=== PATIENT | female | born 1945 | race Caucasian/White ===

== ENCOUNTER 2022-06-12 16:18 | Outpatient (CLI) | payer MEDICARE, BC, SELFPAY ==
[2022-06-12 17:30] LABS: Albumin* 4.4 g/dL (3.3-5.0); Chloride* 94 mmol/L (96-114); Sodium* 130 mmol/L (135-149)
[2022-06-12 17:31] LABS: Potassium* 4.2 mmol/L (3.6-5.1)
[2022-06-12 17:33] LABS: Alanine Aminotransferase* 29 U/L (4-35); Alkaline Phosphatase* 90 U/L (40-150); Aspartate Amino Transferase* 38 U/L (12-35); Bilirubin Total* 0.4 mg/dL (0.1-1.5); Blood Urea Nitrogen* 21 mg/dL (7-30); Carbon Dioxide* 30 mmol/L (20-32); Creatinine* 0.6 mg/dL (0.5-1.5); Estimated Glomerular Filt Rate 92 ml/min; Glucose* 82 mg/dL (60-115); Total Protein* 6.9 g/dL (6.0-8.3)
[2022-06-12 17:34] LABS: Calcium* 9.2 mg/dL (8.4-10.6)
[2022-06-12 18:02] LABS: Thyroid Stimulating Hormone* 0.522 uIU/mL (0.270-4.20)
== END 2022-06-12 16:19 | disposition home or self-care (01) ==
PROVIDERS: PCP Internal Medicine; Visit Provider Family Medicine
DX: Z00.00 Encounter for general adult medical examination without abnormal findings (principal); E03.9 Hypothyroidism, unspecified; R53.83 Other fatigue
CPT/HCPCS: 80053; 83735; 84443

== ENCOUNTER 2023-06-18 14:24 | Outpatient (CLI) | payer MEDICARE, BC, SELFPAY | END 2023-06-18 14:25 | disposition home or self-care (01) | PROVIDERS: PCP Family Medicine; Visit Provider Family Medicine | DX: E03.9 Hypothyroidism, unspecified (principal); G24.9 Dystonia, unspecified; I63.9 Cerebral infarction, unspecified; Z80.7 Family history of other malignant neoplasms of lymphoid, hematopoietic and related tissues | CPT/HCPCS: 80053; 80061; 84165; 84443 ==

== ENCOUNTER 2023-06-24 13:44 | Emergency (ER) | payer MEDICARE, BC, SELFPAY ==
[2023-06-24 13:53] VITALS: BP 111/73; PULSE 83; RESP 18; TEMP 36.6; O2SAT 95
--- NOTE | 2023-06-24 14:00 | CRLHL7_ITS ---
For Patients: As a result of the Cures Act, medical imaging exams and procedure reports are released immediately into your electronic medical record. You may view this report before your referring provider. If you have questions, please contact your health care provider. INDICATION: Trauma. The patient fell 5 days ago. Pain. Paralysis secondary to a stroke. TECHNIQUE: Two views of the left elbow. FINDINGS: Skeletal demineralization. No fracture, dislocation, erosion, or effusion. IMPRESSION: Negative left elbow. Dictated by Norman Nieves MD @ 06/24/2023 3:19:07 PM (Electronically Signed)
--- NOTE | 2023-06-24 14:00 | CRLHL7_ITS ---
For Patients: As a result of the Cures Act, medical imaging exams and procedure reports are released immediately into your electronic medical record. You may view this report before your referring provider. If you have questions, please contact your health care provider. INDICATION: Trauma. The patient fell 5 days ago. Pain. Paralysis secondary to a stroke. TECHNIQUE: Three views of the left shoulder. FINDINGS: Mild degenerative narrowing of the glenohumeral joint. No acute fracture or dislocation. No erosion. The visualized included left-sided ribs are unremarkable. IMPRESSION: Negative left shoulder. Dictated by Norman Nieves MD @ 06/24/2023 3:20:32 PM (Electronically Signed)
--- NOTE | 2023-06-24 14:00 | CRLHL7_ITS ---
For Patients: As a result of the Cures Act, medical imaging exams and procedure reports are released immediately into your electronic medical record. You may view this report before your referring provider. If you have questions, please contact your health care provider. INDICATION: Trauma. The patient fell 5 days ago. Left arm pain. Paralysis secondary to a stroke. TECHNIQUE: Two views of the left forearm. FINDINGS: No acute fracture or dislocation. Mild skeletal demineralization. Degenerative narrowing of the radiocarpal joint space. IMPRESSION: Negative left forearm. Dictated by Norman Nieves MD @ 06/24/2023 3:15:49 PM (Electronically Signed)
--- NOTE | 2023-06-24 14:00 | CRLHL7_ITS ---
For Patients: As a result of the Cures Act, medical imaging exams and procedure reports are released immediately into your electronic medical record. You may view this report before your referring provider. If you have questions, please contact your health care provider. INDICATION: Trauma. The patient fell 5 days ago. Pain. Paralysis due to a stroke. TECHNIQUE: Three views of the left wrist. FINDINGS: Skeletal demineralization. Degenerative narrowing of the radiocarpal joint space. No acute fracture or dislocation. IMPRESSION: No fracture or acute malalignment of the left wrist. Dictated by Norman Nieves MD @ 06/24/2023 3:18:14 PM (Electronically Signed)
--- NOTE | 2023-06-24 14:00 | CRLHL7_ITS ---
For Patients: As a result of the Cures Act, medical imaging exams and procedure reports are released immediately into your electronic medical record. You may view this report before your referring provider. If you have questions, please contact your health care provider. INDICATION : Trauma. The patient fell 5 days ago. Left arm pain. Paralysis secondary to a stroke. TECHNIQUE: Two views of the left humerus. FINDINGS: Skeletal demineralization. No fracture or dislocation. Degenerative narrowing of the glenohumeral joint. IMPRESSION: Negative left humerus. Dictated by Norman Nieves MD @ 06/24/2023 3:17:04 PM (Electronically Signed)
--- NOTE | 2023-06-24 14:27 | ED.GENADULT ---
HPI - General Adult General Chief complaint: Extremity Pain/Injury, Upper Stated complaint: L forearm and hand pain Time Seen by Provider: 06/24/23 13:55 Source: patient and family Mode of arrival: ambulatory Limitations: no limitations History of Present Illness HPI narrative: Female presenting today with concerns about injury to the left upper extremity secondary to a fall she sustained 5 days ago. Patient does have a history of stroke and left-sided upper extremity paralysis. She states that she noticed bruising only a couple days after the fall. She did not hit her head or lose consciousness. She really has very minimal feeling of the upper extremity. Bruising has become worse, swelling has improved. Patient is here with family would like an evaluation. Related Data Home Medications Medication Instructions Recorded Confirmed calcium carb-vit [id number] 1 tab PO QDAY 06/17/23 06/17/23 333 mg-200 unit-133 mg-5 mg tablet hydroxychloroquine 200 mg tablet 200 mg PO BID 06/17/23 06/18/23 multivitamin 1 tab PO QDAY 06/17/23 06/17/23 omega-3 fatty acids 1,000 mg 1,000 mg PO QDAY 06/17/23 06/17/23 capsule vitamin B complex 1 tab PO QDAY 06/17/23 06/17/23 valacyclovir 500 mg tablet 500 mg PO QDAY 06/18/23 06/18/23 (Valtrex) Previous Rx's Medication Instructions Recorded baclofen 10 mg tablet 10 mg PO TID PRN spasm #90 tabs 06/02/23 clonazepam 1 mg tablet 1 mg PO TID #90 tabs 06/18/23 conjugated estrogens 0.625 mg 0.625 mg PO QDAY #90 tabs 06/18/23 tablet (Premarin) duloxetine 20 mg capsule,delayed 20 mg PO QDAY #30 caps 06/18/23 release (Cymbalta) olopatadine 0.2 % eye drops 1 drp ophthalmic (eye) QDAY #2.5 mL 06/18/23 (Pataday Once Daily Relief) spironolactone 25 mg tablet 25 mg PO QDAY #90 tabs 06/18/23 Synthroid 75 mcg tablet 75 mcg PO QDAY #90 tabs 06/21/23 (levothyroxine) Allergies Allergy/AdvReac Type Severity Reaction Status Date / Time carbamazepine [From Tegretol] Allergy Severe Rash Verified 06/18/23 13:27 phenobarbital Allergy Severe Rash Verified 06/18/23 13:27 phenytoin [From Dilantin] Allergy Severe Rash Verified 06/18/23 13:27 duloxetine [From Cymbalta] Allergy Intermediate swelling Verified 06/18/23 13:27 Review of Systems Status of ROS: Reports: 10 or more systems reviewed and unremarkable except as noted in History and below [facility] Medical History (Updated 06/24/23 @ 15:38 by Tanisha Garzon MD) 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.1 - Herpesviral vesicular dermatitis (ICD-10) Generalized anxiety disorder ?F41.1 - Generalized anxiety disorder (ICD-10) Osteopenia ?M85.80 - Other specified disorders of bone density and structure, unspecified site (ICD-10) Adenomatous colon polyp ?D12.6 - Benign neoplasm of colon, unspecified (ICD-10) 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 (ICD-10) Hypothyroidism ?E03.9 - Hypothyroidism, unspecified (ICD-10) History of cerebral hemorrhage (1991) ?Z86.79 - Personal history of other diseases of the circulatory system (ICD-10) Dystonia ?G24.9 - Dystonia, unspecified (ICD-10) Surgical History History of total hysterectomy with bilateral salpingo-oophorectomy (BSO) ?Z90.710 - Acquired absence of both cervix and uterus (ICD-10) ?Z90.722 - Acquired absence of ovaries, bilateral (ICD-10) ?Z90.79 - Acquired absence of other genital organ(s) (ICD-10) History of cataract surgery ?Z98.49 - Cataract extraction status, unspecified eye (ICD-10) History of appendectomy ?Z90.49 - Acquired absence of other specified parts of digestive tract (ICD-10) Family History (Updated 06/16/23 @ 10:35 by Cassandra Escalera) Father Colon cancer Social History (Updated 06/17/23 @ 11:00 by Ruth Amezcua ~ RMA, RMA) Narrative: , retired, nonsmoker What is your current living situation?: I presently have a place to live In the past 12 months, utilities in danger of being shut off: no In past 12 months, lack of transportation kept you from medical appts, meetings, work, or getting things needed for daily living: no In the past 12 mos, have been you worried that your food would run out before you had money to buy more?: never true In the past 12 mos, the food you bought just didn't last and you didn't have money to buy more?: never true Smoking Status: Never smoker How often do you have a drink containing alcohol: never AUDIT-C Alcohol total score: 0 Non-prescribed substance use: denies use How often does anyone, including family, friends and others, physically hurt you: never How often does anyone, including family, friends and others, insult or talk down to you: decline to answer How often does anyone, including family, friends and others, threaten you with harm: never How often does anyone, including family, friends and others, scream or curse at you: decline to answer Little interest or pleasure in doing things: several days Feeling down, depressed, or hopeless: several days Exam Narrative: Exam Narrative: Well-nourished well-developed patient in no acute distress. Alert and oriented x3. Answers questions appropriately. Mood and affect are appropriate. Thoughts are goal oriented and rational. No tangential or magical thinking noted. HEENT: Normocephalic atraumatic. Pupils are equally round reactive to light. Extraocular muscles are intact. Conjunctivae are moist without any icterus noted. Moist mucous membranes. No trauma noted and the inside of the mouth. Cardiovascular: Heart is regular rate and rhythm. Lungs: Clear to auscultation bilaterally. Extremities: Left upper extremity has circumferential dark purple bruising around the wrist and about half of the forearm. She has 2 abrasions of the forearm. She does not have any significant tenderness to palpation anywhere on the arm, but again she has no significant feeling. Her shoulder contour is not rounded when compared to the right. Patient cannot move that extremity at baseline. Hand is contracted. Normal radial pulse. Const: Vital Signs, click to edit/add: Vital Signs - 24 hr 06/24/23 13:53 Temperature 97.8 F Pulse Rate [Right Pulse Oximeter] 83 Respiratory Rate 18 Blood Pressure [Le ft Upper Arm] 111/73 Pulse Oximetry 95 Oxygen Delivery Me thod Room Air Course Vital Signs Vital signs: Initial Vital Signs Temperature 97.8 F 06/24/23 13:53 Temperature Source Temporal Artery Scan 06/24/23 13:53 Pulse Rate 83 06/24/23 13:53 Respiratory Rate 18 06/24/23 13:53 Blood Pressure 111/73 06/24/23 13:53 Blood Pressure Mean 85 06/24/23 13:53 Blood Pressure Position Sitting 06/24/23 13:53 Pulse Oximetry 95 06/24/23 13:53 Oxygen Delivery Method Room Air 06/24/23 13:53 Vital Signs Temperature 97.8 F 06/24/23 13:53 Pulse Rate 83 06/24/23 13:53 Respiratory Rate 18 06/24/23 13:53 Blood Pressure 111/73 06/24/23 13:53 Pulse Oximetry 95 06/24/23 13:53 Oxygen Delivery Method Room Air 06/24/23 13:53 Temperature 97.8 F 06/24/23 13:53 Pulse Rate 83 06/24/23 13:53 Respiratory Rate 18 06/24/23 13:53 Blood Pressure 111/73 06/24/23 13:53 Pulse Oximetry 95 06/24/23 13:53 Oxygen Delivery Method Room Air 06/24/23 13:53 Medical Decision Making MDM Narrative Medical decision making narrative: FALL WITH INJURY TO THE LEFT UPPER EXTREMITY. All imaging within normal limits. I discussed with the patient's daughter the lack contour of the left shoulder in the daughter tells me that her shoulder always looks like that and that she has had multiple injections in that shoulder and she was told that the injections could necrosis the fat around the shoulder. She believes that the lack around this of the shoulder is from that. At this time we discussed putting her in a sling which the patient would like to do. They had no other concerns regarding any other injuries. Patient discharged home to the care of her family. Imaging Data Humerus: Attestation: I have reviewed the pertinent imaging results. Radiologist's impression: INDICATION : Trauma. The patient fell 5 days ago. Left arm pain. Paralysis secondary to a stroke. TECHNIQUE: Two views of the left humerus. FINDINGS: Skeletal demineralization. No fracture or dislocation. Degenerative narrowing of the glenohumeral joint. IMPRESSION: Negative left humerus. shoulder: Attestation: I have reviewed the pertinent imaging results. Radiologist's impression: INDICATION: Trauma. The patient fell 5 days ago. Pain. Paralysis secondary to a stroke. TECHNIQUE: Three views of the left shoulder. FINDINGS: Mild degenerative narrowing of the glenohumeral joint. No acute fracture or dislocation. No erosion. The visualized included left-sided ribs are unremarkable. IMPRESSION: Negative left shoulder. Forearm: Attestation: I have reviewed the pertinent imaging results. Radiologist's impression: INDICATION: Trauma. The patient fell 5 days ago. Left arm pain. Paralysis secondary to a stroke. TECHNIQUE: Two views of the left forearm. FINDINGS: No acute fracture or dislocation. Mild skeletal demineralization. Degenerative narrowing of the radiocarpal joint space. IMPRESSION: Negative left forearm. Wrist: Attestation: I have reviewed the pertinent imaging results. Radiologist's impression: TECHNIQUE: Three views of the left wrist. FINDINGS: Skeletal demineralization. Degenerative narrowing of the radiocarpal joint space. No acute fracture or dislocation. IMPRESSION: No fracture or acute malalignment of the left wrist. Elbow: Attestation: I have reviewed the pertinent imaging results. Radiologist's impression: INDICATION: Trauma. The patient fell 5 days ago. Pain. Paralysis secondary to a stroke. TECHNIQUE: Two views of the left elbow. FINDINGS: Skeletal demineralization. No fracture, dislocation, erosion, or effusion. IMPRESSION: Negative left elbow. Discharge Plan Discharge Clinical Impression: Injury of left upper extremity, Fall Patient Disposition: Home, Self-Care Condition: Stable Additional Instructions: Wear sling when you are up walking around during the day, this will help with swelling. Follow-up with your primary care provider with any concerns. Prescriptions: No Action omega-3 fatty acids 1,000 mg capsule 1,000 mg PO QDAY multivitamin Tablet 1 tab PO QDAY hydroxychloroquine 200 mg tablet 200 mg PO BID calcium carb-D3-mag [id number] [phone] dn-votu-[id number]-mg tablet 1 tab PO QDAY Rx Instructions: administer with a meal vitamin B complex Tablet 1 tab PO QDAY valacyclovir [Valtrex] 500 mg tablet 500 mg PO QDAY olopatadine [Pataday Once Daily Relief] 0.2 % drops 1 drp ophthalmic (eye) QDAY Qty: 2.5 5RF clonazepam 1 mg tablet 1 mg PO TID Qty: 90 5RF spironolactone 25 mg tablet 25 mg PO QDAY Qty: 90 3RF Premarin 0.625 mg tablet 0.625 mg PO QDAY Qty: 90 3RF duloxetine [Cymbalta] 20 mg capsule,delayed release(DR/EC) 20 mg PO QDAY Qty: 30 2RF baclofen 10 mg tablet 10 mg PO TID PRN (Reason: spasm) Qty: 90 0RF levothyroxine [Synthroid] 75 mcg tablet 75 mcg PO QDAY Qty: 90 3RF Follow Up/Referrals: Modesto Elliott MD [Primary Care Provider] - Stand Alone Forms: [facility] Info Instructions
== END 2023-06-24 15:58 | disposition home or self-care (01) ==
PROVIDERS: Emergency Provider Family Medicine; PCP Family Medicine
DX: S40.022A Contusion of left upper arm, initial encounter (principal); W19.XXXA Unspecified fall, initial encounter
CPT/HCPCS: 73030; 73060; 73070; 73090; 73110; 99284

== ENCOUNTER 2024-06-22 12:23 | Outpatient (CLI) | payer MEDICARE, BC, SELFPAY | END 2024-06-22 12:24 | disposition home or self-care (01) | PROVIDERS: PCP Family Medicine; Visit Provider Family Medicine | DX: E03.9 Hypothyroidism, unspecified (principal); E78.5 Hyperlipidemia, unspecified; G24.9 Dystonia, unspecified; E61.1 Iron deficiency; Z80.7 Family history of other malignant neoplasms of lymphoid, hematopoietic and related tissues | CPT/HCPCS: 80048; 80061; 80076; 82728; 84165; 84443; 85025 ==

== ENCOUNTER 2025-06-14 18:34 | Emergency (ER) | payer MEDICARE, BC, SELFPAY ==
--- OUTSIDE RECORDS SUMMARY | 2025-04-27 04:45 | XMS_ITS | Encounter Summary ---
Author Organization [facility] Address [address] [place] [address] Care Team Providers Care Enterostomal Therapy Nurse Name Role Phone Elsewhere, Pcp Primary Care Provider Unavailabl e Reason for Referral * Outpatient (Routine) - Authorized Specialty Diagnoses / Procedures Referred By Jamie hanna Referred To Contact Diagnoses Secondary Osteoarthritis Knee Left Procedures US Lower Extremity Veins Left Colton Royal APRN, C.N.P., D.N.P. 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 Procedures COMPLEX PRIMARY LEFT TOTAL KNEE ARTHROPLASTY WITH HINGE CONSTRUCT, proceed as indicated. Referral ID Status Reason Start Date Expiration Date Visits Re quested Visits Authorized [id number] 1 1 Encounter Details Date Type Department Care Team (Latest Contact Info) Description 04/27/2025 5:45 AM CDT - 05/04/2025 1:11 PM CDT Hospital Encounter [facility] Ninth Floor [address] [place] [address] Eduardo Bahena M.D. [address] [place] [address] Decline Functional Status [R53.81] (Primary Dx); Dysphagia [R13.10]; Secondary Osteoarthritis Knee Left Discharge Disposition: Detention Facility Social History Tobacco Use Types Packs/Day Years Used Date Smoking Tobacco: Never Passive Smoke Exposure: Past Smokeless Tobacco: Never Alcohol Use Standard Drinks/Week Comments Never 0 (1 standard drink = 0.6 oz pur e alcohol) Humiliation, Afraid, Rape, and Kick questionnair e Answer Date Recorded Within the last year, have y ou been afraid of your partner or ex-partner? No 04/27/2025 Within the last year, have y ou been humiliated or emotionally abused in other ways by your partner or ex-partner? No Within the last year, have y ou been kicked, hit, slapped, or otherwise physically hurt by your partner or ex-partner? No 04/27/2025 Within the last year, have y ou been raped or forced to have any kind of sexual activity by your partner or ex-partner? No 04/27/2025 Hunger Vital Sign Answer Date Recorded Within the past 12 months, y ou worried that your food would run out before you got the money to buy more. Never true 04/27/20 25 Within the past 12 months, t he food you bought just didn't last and you didn't have money to get more. Never true 04/27/2025 PRAPARE - Transportation Answer Date Re corded In the past 12 months, has l ack of transportation kept you from medical appointments or from getting medications? No 04/03 In the past 12 months, has l ack of transportation kept you from meetings, work, or from getting things needed for daily living? No 04/27/2025 [facility] Utilities Answer Date Recorded In the past 12 months has [facility] electric, gas, oil, or water company threatened to shut off services in your home? No 04/27/2025 Housing Stability Answer Date Recorded What is your living situation today? I have a [address] [place] place to live 04/27/2025 Education Answer Date Recorded What is the highest level of school you have completed or the highest degree you have received? Associate degree: occupational, technical, or vocational program 03/16/2019 Comments No Sex and Gender Information Value Date Recorded Sex Assigned at Female 04/22/2021 5:18 PM CDT Legal Sex Female 4:49 AM ENVIRONMENTAL CONSULTANT Gender Identity Female 09/07/2022 7:24 PM ENVIRONMENTAL CONSULTANT Sexual Orientation Not on file documented as of this encounter Last Filed Vital Signs Vital Sign Reading Time Taken Comments Blood Pressure 104/47 05/04/2025 11:59 AM CDT Pulse 109 05/04/2025 11:59 AM CDT Temperature 36.5 C (97.7 F) 05/04/2025 11:59 AM CDT Respiratory Rate 16 05/04/2025 11:59 AM CDT Oxygen Saturation 90% 05/04/2025 11:59 AM CDT Inhaled Oxygen Concentration - - Weight 51 kg (112 lb 7 oz) 04/27/2025 6:46 AM CD T Height 154 cm (5' 0.63) 04/27/2025 6:46 AM CDT Body Mass Index 21.5 04/27/2025 6:46 AM CDT documented in this encounter Discharge Summaries * Colton Royal, ADRIANA, C.N.P., D.N.P. - 05/04/2025 11:22 AM CDT DISCHARGE SUMMARY BRIEF OVERVIEW Hospital: [facility] Discharge Provider: Eduardo Bahena M.D. Primary Team: T Orthopedic Surgery - Korey Primary Care Providers: Elsewhere, Pcp (General) No address on file Primary Care Provider Phone Number: None Primary Care Provider Fax Number: None Other Providers: Admission Date: 04/27/2025 Discharge Date: 05/04/2025 PRINCIPAL DIAGNOSIS Primary Osteoarthritis Knee Left SECONDARY DIAGNOSES Principal Problem: Primary Osteoarthritis Knee Left Active Problems: Spasticity Hemiplegia Spastic Nondominant Side Left (HCC) Abnormal Gait Non Orthopedic Resolved Problems: * No resolved hospital problems. * Surgery Information This Encounter Past Procedures (05/04/2024 to Today) Date Procedures Providers Loc / Dept 04/27/2025 COMPLEX PRIMARY LEFT TOTAL KNEE ARTHROPLASTY WITH HINGE CONSTRUCT Eduardo Bahena M.D.Zietz, Timothy J, MPAS, P.A.-C.MacInnis, Bailey R, M.D.Ray, Gabrielle S, M.D. RSDenisha FORDE OR DISCHARGE DISPOSITION Home-Health Care [facility] [6] ACTIVE ISSUES REQUIRING FOLLOW UP OUTPATIENT FOLLOW UP For appointment details refer to your Patient Appointment Guide. TEST RESULTS PENDING AT DISCHARGE Pending Labs None DETAILS OF HOSPITAL STAY REASON FOR ADMISSION Primary Osteoarthritis Knee Left HOSPITAL COURSE Surgery Information This Encounter Past Procedures (05/04/2024 to Today) Date Procedures Providers Loc / Dept 04/27/2025 COMPLEX PRIMARY LEFT TOTAL KNEE ARTHROPLASTY WITH HINGE CONSTRUCT Eduardo Bahena M.D.Zietz, Timothy J, MPAS, P.A.-C.MacInnis, Bailey R, M.D.Ray, Gabrielle S, M.D. RST ROEI OR Cristina Valenzuelae Daniellayarelis was taken to the operative room by Eduardo Bahena M.D. for the procedurelisted above. The intraoperative as well as the immediate postoperative course were uncomplicated. For further details of the surgery please see the operative note. The patient was transferred from the PACU to the general care floor for continued observation and monitoring. She progressed in the usual post-operative fashion without complications. The patient was treated with perioperative IV antibiotics. She was given liquids by mouth and eventually advanced as tolerated towards a more general diet. Her pain was well controlled with oral pain medications. Physical therapy / Occupational therapy was consulted for assistance with mobilization and gait training. She was mobilizing without difficulty and was compliant with any activity restrictions. Her incision remained intact with no concerns. Her bowel and bladder function were acceptable. She then met criteria for discharge and was later dismissed from the hospital. For any further details please see the [facility] orthopedic surgery progress note and any other co-managing teams dated 05/04/2025. CONSULTS ORDERED DURING THIS ADMISSION IP CONSULT TO CARE MANAGEMENT IP CONSULT TO CARE MANAGEMENT IP CONSULT TO CARE MANAGEMENT IP CONSULT TO CARE MANAGEMENT CONDITION AT DISCHARGE stable Discharge instructions were provided to the patient and caregiver(s). Total time spent in discharge services today: 20 minutes. documented in this encounter Medications at Time of Discharge acetaminophen (TylenoL) 500 mg tablet Take 2 tablets (1,000 mg total) by mouth every 6 (six) hours for 30 days. First line medication for pain. Okay to take on a scheduled basis every 6 hours in the days following surgery, then take on an as -needed basis as pain improves. Do not exceed 4,000 mg of acetaminophen from all sources in a day. 200 tablet 5 apixaban (Eliquis) 2.5 mg tablet Take 1 tablet (2.5 mg total) by mouth 2 (two) times a day. 60 tablet 5 ascorbic acid (VITAMIN C ORAL) Take 1 tablet by mouth daily. baclofen (LIORESAL) 10 mg tablet Take 1 tablet by mouth 2 (two) times a day as needed. Muscle relaxant as needed 4 calcium carb/D3/magnesium/z inc (CALCIUM CARB-D3-MAG RZW23-IMTC) [phone] zb-zupl-ao-mg tablet Take 2 tablets by mouth at bedtime. 2 cyanocobalamin, vitamin B-12, 5,000 mcg tablet, IR & ER, biphasic Take 1 tablet by mouth daily. docosahexanoic acid/epa (FISH OIL ORAL) Take 2 capsules by mouth daily. 8 estrogens, conjugated, (PREMARIN) 0.625 mg tablet Take 0.625 mg by mouth. 5 ferrous sulfate 134 mg (27 mg iron) tablet Take 134 mg by mouth. 5 levothyroxine (SYNTHROID) 75 mcg tablet Take 1 tablet by mouth daily. 5 MULTIVITAMIN WITH IRON ORAL Take 1 tablet by mouth daily. 9 oxyCODONE (Roxicodone) 5 mg immediate release tabletIndications:A cute Pain Exception Indication: Acute Pain Exception. 1 tab for pain 4-6/10, 2 tabs for pain 7-10/10 every four hours as needed for pain- second line 25 tablet 5 sennosides-docusate sodium (Senokot-S) 8.6-50 mg per tablet Take 1 tablet by mouth 2 (two) times a day. To prevent constipation in the postoperative timeframe and/or while using opioid pain medications. Decrease or discontinue using if you develop loose stools. 5 sesame oil with daphne geranium oil (50 mL) Administer 2 sprays into each nostril 2 (two) times a day. 50 mL 11 04/12/2025 11:34 AM CDT 4 tolterodine (DetroL) 2 mg tablet Take 1 tablet by mouth 2 (two) times a day. 5 TURMERIC ORAL Take 1 tablet by mouth daily. valACYclovir (VALTREX) 500 mg tablet Take 1 tablet (500 mg total) by mouth daily. 90 tablet 3 ondansetron ODT (Zofran-ODT) 4 mg disintegrating tablet Dissolve 1 tablet (4 mg total) in the mouth every 6 (six) hours as needed for nausea or vomiting for up to 30 days. 5 06/03/20 25 pantoprazole (Protonix) 40 mg EC tablet Take 1 tablet (40 mg total) by mouth daily before morning meal for 30 days. 5 06/03/20 25 tranexamic acid (Lysteda) 650 mg tablet Take 3 tablets (1,950 mg total) by mouth daily for 3 days. 9 tablet 5 05/08/20 25 documented as of this encounter Progress Notes * Melida Chris L.G.S.W. - 05/04/2025 11:10 AM CDT SUBJECTIVE Patient will discharge today to [facility] for short term rehab. Patient is coordinating with her daughter in regards ot transportation. Patient needs to be at facility by 1:00 pm OBJECTIVE Anticipated Needs Anticipated Needs Functional Status: Transportation use (drive car, use taxi/bus), Housekeeping, Mobility, Shopping Assistive Devices: None Anticipated Modifications to the Patient's Home: None Transportation Needs: Support from family Does the patient need discharge transport arranged?: No Ride and Caregiver Arranged: Yes Ride Caregiver Provider: Eleonora Coe Phone Number for Ride/Caregiver: [phone] Anticipated Discharge Destination: [facility]-Health Care [facility] Patient/family are understanding and accepting of the discharge plan as described below. ASSESSMENT / PLAN Assessment Those noted above appear to have insight into the patient's needs at this time and are planning appropriately for discharge needs. They report agreement with the below plan with no further questions at this time. Anticipated barriers: transportation Plan The patient is being prepared to discharge on 05/04/2025 at 12:30 if medically ready for transfer. Contact Social Work if time needs to be changed. Transportation will be provided by family. . Destination - Admitted Since 04/27/2025 Service Provider Services Address Phone Fax Patient Preferred [facility] Detention [address] [phone] Yes Contact: Transportation oxygen: No oxygen needed. NURSING: - Complete documentation in the Discharge Navigator including Nursing Report Info and Facility/NextLevel of Care Info - Contact facility to give report on morning of discharge. - Send After Visit Summary and required packet of dismissal information with patient, including advance directive. PRIMARY SERVICE: - Provider to Provider call is not required. - Provide written prescriptions for all narcotics. After Visit Summary to Include: - All discharge medications include dosage, times for administration, diagnosis, and stop date. - Ongoing care - wound care, infection precautions and phone numbers to call. Social Work : - Pre-admission screen has been completed. - Will continue to follow. Kasey Bui 05/04/2025 * Sander Schmidt L.A.T., A.T.C., SPT - 05/04/2025 11:08 AM CDT Physical Therapy Inpatient Treatment SUBJECTIVE Patient's Name: Cristina Broussard Referring/Attending Provider: Korey, Eduardo I., M.D. Reason for Referral: Physical Therapy Evaluate and Treat Onset Date: 04/27/2025 History of Present Illness: Cristina Broussard is a 79 y.o. female who was admitted to in [place] on 04/27/2025 for Primary Osteoarthritis Knee Left [M17.12] Precautions Other Precautions: Fall risk, left hemiplegia, general aspiration precautions, balance impairment Pain Assessment: Pain not rated, but present. Pt states pain has been more well controlled following her recent painmedicine dose. Patient/Caregiver Goals: Decrease pain, Return to home, and Return to prior level of function Subjective Comments: Agreeable to therapy session. OBJECTIVE Vital Signs Vitals not formally assessed during session. No concerns during chart review and the patient had nosigns or symptoms consistent with vital changes during therapy session. Outcome Measures: AM-PAC Inpatient Short Form: AM-PAC Basic Mobility (V.2) How much help from another person do you currently need???If the patient hasn't done an activity recently, how much help from another person do you think he/she would needif he/she tried? 1. Turning from your back to your side while in a flat bed without using bedrails?: A Little 2. Moving from lying on your back to sitting on the side of a flat bed without using bedrails?: A Little 3. Moving to and from a bed to a chair (including a wheelchair)?: A Little 4. Standing up from a chair using your arms (e.g., wheelchair, or bedside chair)?: A Little 5. To walk in hospital room?: A Little 6. Climbing 3-5 steps with a railing?: A Lot AM-PAC Basic Mobility (V.2) Raw Score: 17 AM-PAC Basic Mobility (V.2) Standardized Score: 39.67 Interpretation: Based on scoring guidelines using the raw score value: Those going to home had an average score at or above 18 Those going to facility had an average score at or below 17 Clinicians answer the AM-PAC Inpatient Short Form based on observed patient activity and/or clinical judgement (patient can be scored without physically performing each activity). The AM-PAC is one of many factors to consider when discharge planning. Therapeutic Interventions: SUPINE TO SIT: - Assist Level: minimal assist of 1 - Device: head of bed elevated and bedrail - Therapist Delivery: assessed and assisted - Assist/Cues Provided: manual for lower extremity movement/management and lower extremity placement - Comments: PT assisted w/ LLE during transfer SIT TO SUPINE: - Assist Level: minimal assist of 1 - Device: head of bed elevated and bedrail - Therapist Delivery: assessed and assisted - Assist/Cues Provided: manual for lower extremity movement/management and lower extremity placement - Comments: PT assisted w/ LLE during transfer SIT TO STAND: - Assist Level: supervision of 1 for safety due to pt's lack of insight into current functional status - Device: gait belt and quad cane - Surface: bed - Therapist Delivery: assessed - Assist/Cues Provided: none STAND TO SIT: - Assist Level: supervision of 1 for safety due to pt's lack of insight into current functional status - Device: gait belt and quad cane - Surface: bed - Therapist Delivery: assessed - Assist/Cues Provided: none GAIT: - Distance: 300 feet - Assist Level:contact guard assist of 1 - Device: gait belt and quad cane - Quality: decreased heel strike, decreased toe off, step through - Therapist Delivery: assessed - Assist/Cues Provided:none - Comments: As pt fatigues, she stops occasionally to reset before continuing on. Her strides shorten as she fatigues. EDUCATION: -Role of PT in acute setting and collaborated with patient and/or family on goals and plan of care. The patient's status was discussed and the following coordination of care occurred with the RN and .Net Programmer Patient was left in bed at end of session with call light in reach, all needs met and questions answered. Assessment Discharge Therapy Needs - PT: Ongoing skilled physical therapy If skilled therapy is recommended, skilled therapy can include physical therapy provided by home health, outpatient clinic, or a post-acute facility. The location of these services is determined by the patient's care team in partnership with patient/family. Level of Care Needed - PT: Assistance with transfers (Comment), Assistance with walking and moving around the home, Assistance with stairs, Assistance with bed mobility, Physical assistance needed Barriers to Discharge Home: Current functional status, Fall risk, Limited caregiver availability, Limited caregiver support, Safety concerns Continue to assess. Patient owns quad cane and wheelchair. Pt needs replacement quad cane due to missing piece From a physical therapy perspective, the level of care above has been recommended for Ms. Broussardafter hospital discharge. This level of care is based on her functional abilities during today's session. This may change throughout the hospital course and will be updated as appropriate. Clinical Impression: Pt was resting in bed and was agreeable to PT . Pt presents with increased pain, decreased ROM, decreased strength, impaired static balance, impaired dynamic balance, and decreased activity tolerancewhich are resulting in difficulty performing bed mobility, transfers, gait, stairs, and ADL's at prior level of function. Unable to address car transfers since pt states my daughter can figure it out, she's a nurse. Pt able to improve gait distance today w/ CGA since her gait quality worsens w/ fatigue. Pt unwilling to recognize her fatigue and states fine when asked how she feels or if she needs a break during gait. She was breathing heavier at end of gait this morning, but denied any S/S other than not wanting a blanket because she felt hot. While PT was updating nursing, case manager specialist walked into pt's room to discuss discharge planning, and that she might potentially leave before 1 pmif transport can be arranged. Due to remaining below functional baseline, Cristina Broussardcontinues to be appropriate for skilled physical therapy in order address the above impairments andfunctional limitations. PT will continue to progress patient as tolerated towards the following goals. Rehab potential: Ms. Broussard has Fair potential to achieve established physical therapy goals within the time frame outlined below. Progress: Progressing toward goals Recommendations for mobility/activity while hospitalized: chair 3x/day with assist x1 and gait belt and quad cane (2 hours max in chair at a time) gait 3x/day with assist x1 and gait belt and quad cane lower extremity exercises 3x/day Plan PT Plan Comments: Total knee arthroplasty home exercise program, bed mobility, transfers, gait training using appropriate gait aid Functional Goals: PT Inpatient Goals PT Goal #1: Patient will perform bed mobility independently. PT Goal #1 Status: Progressing PT Goal #2: Patient will perform transfers independently. PT Goal #2 Status: Progressing PT Goal #3: Patient will ambulate 50 meters using least restrictive gait aid modified independently. PT Goal #3 Status: Progressing Treatment Plan: Plan: Continue with current plan PT Amount: 1 visit per day PT Frequency: 7 times per week PT Inpatient Duration : Until goals are met or hospital discharge Requires Inpatient Follow-Up: Yes PT - Next Inpatient Appointment: 05/05/25 Patient agrees with the plan of care and goals. Treatment interventions may include: Treatment/Interventions: Therapeutic exercise, Therapeutic functional activity, Neuromuscular re-education, Self-care/home management, Gait training Billing: Time Spent with Patient Therapeutic Interventions Therapeutic Activity (min): 16 min Time Tracking Total Timed Units (min): 16 min Total Treatment Time (min): 16 min Ravinder Mar, Britton, SPT Cosigned by Mohan Daugherty P.T., D.P.T. at 05/04/2025 4:19 PM CDT Associated attestation - Mohan Daugherty P.T., D.P.T. - 05/04/2025 4:19 PM CDT This therapist has reviewed all documentation and supervised today???s session. The therapist agrees with the plan developed in collaboration with the patient. * Christiano Robles M.D. - 05/04/2025 7:20 AM CDT [facility] PROGRESS NOTE SUBJECTIVE This patient was seen in the acute postoperative setting 7 Days Post-Op s/p L complex primary TKA (hinge construct). Afebrile, vitals stable. NAEO. AFVSS. No f/c/n/v/cp/sob. Pain adequately controlled and patient got her best sleep so far. Urinating well spontaneously. Passing gas. Pending SNF placement Worked well with PT yesterday walking 150 feet, patient still unsteady getting to commode and does not feel safe using it by herself without risk of falling. Pending hearing back from multiple facilities after patient and daughter agree SNF placement is her best option. Patient hoping to continue to mobilize. OBJECTIVE VITAL SIGNS Temperature: [36.6 ??C-36.7 ??C] 36.6 ??C Resp Rate: [16] 16 Blood Pressure: (99-137)/(57-71) 137/71 SpO2: [92 %-98 %] 92 % Flow Rate (L/min): [1 L/min] 1 L/min Pulse Rate: [81-92] 92 PHYSICAL EXAM General: NAD. Neuro: Alert and engaged, answers questions appropriately. Cardiovascular: Regular rate. Respiratory: Regular respiratory rate. Normal work of breathing. Musculoskeletal: On examination of the operative lower extremity, surgical dressing with additionaldrainage and changed this morning. Leg re-wrapped down to foot to help with foot welling. Does not fire TA or EHL, no ankle plantar or dorsiflexion but this is her baseline from prior stroke Foot wwpand palpable DP pulse. Knee immobilizer in place. I/O last 3 completed shifts: In: 1760 [P.O.:1750] Out: 650 [Urine:650] DIAGNOSTICS No results for input(s): WBC, HGB, HCT, MCV, PLT in the last 48 hours. No results for input(s): NA, K, CL, BICARB, CREATININE, BUN, GLUCOSE, MG, CA in the last 48 hours. No results for input(s): INR, PT in the last 48 hours. No results for input(s): SEDRATE, CRP in the last 48 hours. ASSESSMENT / PLAN IMPRESSION/REPORT/PLAN #1 Primary Osteoarthritis Knee Left Surgical Diagnosis/Procedure(s) Status post left TKA, primary hinge Comorbidities Present on Admission Medical History[1] Assessment: Patient still hoping for home discharge. Calling daughter to see if this is possible. If not, SNF placement working today Activity: WBAT operative extremity, with no additional restrictions VTE: Eliquis 2.5 mg BID for 30 days Other: Oral TXA 1.95g for 7 days Wound care: absorbable sutures, Dermabond, Aquacel - remove POD 7 PMH: Prior CVA w/subsequent left-sided hemiplegia/dystonia, hx of DVT following stroke in 1991 DC/Barriers: Home Follow Up: 12 weeks with radiographs Additional Notes: N/A Consults: N/A Anticipated Disposition: Patient to talk to social work team today about SNF placement. Unsafe to mobilize to and use bathroom safely by herself. Pending placement. Follow-up: Patient will follow-up with in the clinic in 3 months Christiano Roblse M.D. Please contact [facility] during business hours with any questions or concerns regarding this patient. After hours, 6pm - 6am and on weekends contact [facility] at [phone]. [1] Past Medical History: Diagnosis Date Anemia Not sure of date. Had endoscopy Anxiety Generalized Disorder 1992 Blood Transfusion No Diagnosis 1988 before hystetectomy and again after hysterectomy Cataract 2013 had cataract surgery in both eyes Complication Anesthesia Initial Have to be completely put amanda for colonoscopy. I have a twisted colon snd sedation doesn???t work Depressive Disorder 1992 Hypothyroidism 1992 Migraine Headache 1988 Osteopenia Not sure of exact date Other Injury Of Unspecified Body Region 1965 Broken jaw(1965), broken foot(1993,broken hsnd Other Specified Health Status 1996 AVM,DYSTONIA Pneumonia 2004 Polyp Colon Not sure pf date Stroke (HCC) 1991 Thromboembolism NOS 1991 leg Transient Ischemic Attack 2013 * Melida Chris, JairGPerri. - 05/03/2025 2:25 PM CDT SUBJECTIVE Social work updated patient that she was accepted to [facility] for short term rehab. Patient expresses strong dissatisfaction with this remark. She reports to this social work administrator that she will not admit to this facility. Social work explains broad referral process, in detail. Patient requests that two more referrals besent to long term facilities, if they are unable to accept, patient plans to discharge home. Social work has sent referrals accordingly and will continue to coordinate. UPDATE: [facility] (patients preference) is now considering patient for admission. OBJECTIVE Anticipated Needs Anticipated Needs Functional Status: Transportation use (drive car, use taxi/bus), Housekeeping, Mobility, Shopping Assistive Devices: None Anticipated Modifications to the Patient's Home: None Transportation Needs: Support from family Does the patient need discharge transport arranged?: No Ride and Caregiver Arranged: Yes Ride Caregiver Provider: Eleonora Coe Phone Number for Ride/Caregiver: [phone] Anticipated Discharge Destination: Home-Health Care [facility] Patient/family are understanding and accepting of the discharge plan as described below. ASSESSMENT / PLAN Assessment Those noted above appear to have insight into the patient's needs at this time and are planning appropriately for discharge needs. They report agreement with the below plan with no further questions at this time. Anticipated barriers: SNF placement vs safely returning home and patient preferences towards placement. Plan Social work will coordinate with long term facilities listed below. If they are unable to accept patient does not want additional referrals sent. Patient has expressed ot this social work administrator that is preferred facilities decline this patient she will discharge home. UPDATE: [facility] (patients preference) is now considering patient for admission. Destination - Admitted Since 04/27/2025 Service Provider Request Status Services Address Phone Fax Patient Preferred [facility] Accepted -- [address] [facility] [address] [phone] -- [facility] Considering -- [address] [facility] [address] [phone] Yes [facility] Pending - Request Sent -- [address] [facility] [address] [phone] -- [facility] Pending - Request Sent -- [address] [facility] [id number] -- [facility] Pending - Request Sent -- [address] [facility] [address] [phone] -- [facility] Declined Bed not available -- [address] [facility] [address] [phone] -- Kasey Bui 05/03/2025 * Sander Schmidt, LNayelyT., A.T.C., SPT - 05/03/2025 2:00 PM CDT Physical Therapy Inpatient Treatment SUBJECTIVE Patient's Name: Cristina Broussard Referring/Attending Provider: Eduardo Bahena M.D. Reason for Referral: Physical Therapy Evaluate and Treat Onset Date: 04/27/2025 History of Present Illness: Cristina Broussard is a 79 y.o. female who was admitted to in [place] on 04/27/2025 for Primary Osteoarthritis Knee Left [M17.12] Precautions Other Precautions: Fall risk, left hemiplegia, general aspiration precautions, balance impairment Pain Assessment: Pain not reported during session. Patient/Caregiver Goals: Decrease pain, Return to home, and Return to prior level of function Subjective Comments: Agreeable to therapy session with encouragement. OBJECTIVE Vital Signs Vitals not formally assessed during session. No concerns during chart review and the patient had nosigns or symptoms consistent with vital changes during therapy session. Outcome Measures: AM-PAC Inpatient Short Form: AM-PAC Basic Mobility (V.2) How much help from another person do you currently need???If the patient hasn't done an activity recently, how much help from another person do you think he/she would needif he/she tried? 1. Turning from your back to your side while in a flat bed without using bedrails?: A Little 2. Moving from lying on your back to sitting on the side of a flat bed without using bedrails?: A Little 3. Moving to and from a bed to a chair (including a wheelchair)?: A Little 4. Standing up from a chair using your arms (e.g., wheelchair, or bedside chair)?: A Little 5. To walk in hospital room?: A Little 6. Climbing 3-5 steps with a railing?: A Lot AM-PAC Basic Mobility (V.2) Raw Score: 17 AM-PAC Basic Mobility (V.2) Standardized Score: 39.67 Interpretation: Based on scoring guidelines using the raw score value: Those going to home had an average score at or above 18 Those going to facility had an average score at or below 17 Clinicians answer the AM-PAC Inpatient Short Form based on observed patient activity and/or clinical judgement (patient can be scored without physically performing each activity). The AM-PAC is one of many factors to consider when discharge planning. Therapeutic Interventions: SUPINE TO SIT: - Assist Level: minimal assist of 1 - Device: head of bed elevated and bedrail - Therapist Delivery: assessed and assisted - Assist/Cues Provided: manual for lower extremity movement/management and lower extremity placement - Comments: Pt required assistance for managing LLE due to weakness and w/ knee immobilizer brace donned SIT TO SUPINE: - Assist Level: minimal assist of 1 - Device: head of bed elevated and bedrail - Therapist Delivery: assessed and assisted - Assist/Cues Provided: manual for lower extremity movement/management and lower extremity placement - Comments: Pt required assistance for managing LLE due to weakness and w/ knee immobilizer brace donned SIT TO STAND: - Assist Level: stand by assist of 1 - Device: gait belt and quad cane - Surface: bed and wheelchair - Therapist Delivery: assessed - Assist/Cues Provided: none STAND TO SIT: - Assist Level: stand by assist of 1 - Device: gait belt and quad cane - Surface: bed and wheelchair - Therapist Delivery: assessed - Assist/Cues Provided: none - Comments: PT cued for pt to step back till she felt the WC. Pt remarked that PT should bring the WC closer to her. GAIT: - Distance:100 feet total (50 feet, seated rest break, 50 feet) - Assist Level:contact guard assist of 1 - Device: gait belt and quad cane - Quality: decreased arm swing, decreased heel strike, decreased step length, step through - Therapist Delivery: assessed - Assist/Cues Provided:verbal for management of quad cane w/ larger base - Comments: Pt stated that she couldn't use quad cane w/ larger base w/o hitting her foot. PT encouraged her to try to practice and pt did not hit her foot throughout entire PT session. EDUCATION: -Role of PT in acute setting and collaborated with patient and/or family on goals and plan of care. The patient/family educated on safe transfer techniques with functional mobility/activity. The patient's status was discussed and the following coordination of care occurred with the RN Patient was left in bed at end of session with call light in reach, all needs met and questions answered. Assessment Discharge Therapy Needs - PT: Ongoing skilled physical therapy If skilled therapy is recommended, skilled therapy can include physical therapy provided by home health, outpatient clinic, or a post-acute facility. The location of these services is determined by the patient's care team in partnership with patient/family. Level of Care Needed - PT: Assistance with transfers (Comment), Assistance with walking and moving around the home, Assistance with stairs, Assistance with bed mobility, Physical assistance needed Barriers to Discharge Home: Current functional status, Fall risk, Limited caregiver availability, Limited caregiver support, Safety concerns Continue to assess. Patient owns quad cane and wheelchair. Pt needs replacement quad cane due to missing piece From a physical therapy perspective, the level of care above has been recommended for Ms. Broussardafter hospital discharge. This level of care is based on her functional abilities during today's session. This may change throughout the hospital course and will be updated as appropriate. Clinical Impression: Pt was resting in bed and needed encouragement to participate in PT session. Pt presents with increased pain, decreased ROM, decreased strength, impaired static balance, impaired dynamic balance, anddecreased activity tolerance which are resulting in difficulty performing bed mobility, transfers, gait, stairs, and ADL's at prior level of function. Progress remains limited by pain and pt's attitude towards PT. PT provided education and assisted pt as best as able throughout session despite pt'sanimosity towards PT. Pt presents w/ increased pain and her quad cane from home is missing a piece.PT attempted to replace piece, but did not have correct parts. PT educated pt that a prescription has been requested, but that it can't be filled until close to discharge and that depending on discharge location (home vs. SNF) that the equipment may not be supplied by [place]. PT encouraged pt to use wide based quad cane that PT brought to pt on 05/02. Due to remaining below functional baseline, Cristina Broussard continues to be appropriate for skilled physical therapy in order address theabove impairments and functional limitations. PT will continue to progress patient as tolerated towards the following goals. Rehab potential: Ms. Broussard has Fair potential to achieve established physical therapy goals within the time frame outlined below. Progress: Progressing toward goals Recommendations for mobility/activity while hospitalized: chair 3x/day with assist x1 and gait belt and quad cane (2 hours max in chair at a time) gait 3x/day with assist x1 and gait belt and quad cane lower extremity exercises 3x/day Plan PT Plan Comments: Total knee arthroplasty home exercise program, bed mobility, transfers, gait training using appropriate gait aid Functional Goals: PT Inpatient Goals PT Goal #1: Patient will perform bed mobility independently. PT Goal #1 Status: Progressing PT Goal #2: Patient will perform transfers independently. PT Goal #2 Status: Progressing PT Goal #3: Patient will ambulate 50 meters using least restrictive gait aid modified independently. PT Goal #3 Status: Progressing Treatment Plan: Plan: Continue with current plan PT Amount: 1 visit per day PT Frequency: 7 times per week PT Inpatient Duration : Until goals are met or hospital discharge Requires Inpatient Follow-Up: Yes PT - Next Inpatient Appointment: 05/04/25 Patient agrees with the plan of care and goals. Treatment interventions may include: Treatment/Interventions: Therapeutic exercise, Therapeutic functional activity, Neuromuscular re-education, Self-care/home management, Gait training Billing: Time Spent with Patient Therapeutic Interventions Therapeutic Activity (min): 27 min Time Tracking Total Timed Units (min): 27 min Total Treatment Time (min): 27 min Ravinder Mar, Britton, SPT Cosigned by Mohan Daugherty P.T., D.P.TGeorgia at 05/03/2025 3:52 PM CDT Associated attestation - Mohan Daugherty P.T., D.P.T. - 05/03/2025 3:52 PM CDT This therapist has reviewed all documentation and supervised today???s session. The therapist agrees with the plan developed in collaboration with the patient. * Christiano Robles M.D. - 05/03/2025 6:48 AM CDT [facility] PROGRESS NOTE SUBJECTIVE This patient was seen in the acute postoperative setting 6 Days Post-Op s/p L complex primary TKA (hinge construct). Afebrile, vitals stable. NAEO. AFVSS. No f/c/n/v/cp/sob. Pain adequately controlled but still struggling to sleep. Urinatingwell spontaneously. Passing gas. No new labs, DVT US negative for acute clot. Will repeat in 2 weeks for what seemed to be chronic femoral vein changes. Worked well with PT yesterday walking 200 feet, patient still unsteady getting to commode and does not feel safe using it by herself without risk of falling. We had a long conversation about how we need a plan moving forward. Patient denied conversation about SNF and denied social work calling daughter yesterday. Patient gave us permission to call daughter this morning to see if home is a safe option with family health and home health. If not, we will make SNF plan today. OBJECTIVE VITAL SIGNS Temperature: [36.6 ??C-36.7 ??C] 36.7 ??C Resp Rate: [15-16] 15 Blood Pressure: (116-136)/(62-72) 116/71 SpO2: [89 %-96 %] 89 % Flow Rate (L/min): [1 L/min] 1 L/min Pulse Rate: [87-99] 97 PHYSICAL EXAM General: NAD. Neuro: Alert and engaged, answers questions appropriately. Cardiovascular: Regular rate. Respiratory: Regular respiratory rate. Normal work of breathing. Musculoskeletal: On examination of the operative lower extremity, surgical dressing with additionaldrainage and changed this morning. Leg re-wrapped down to foot to help with foot welling. Does not fire TA or EHL, no ankle plantar or dorsiflexion but this is her baseline from prior stroke Foot wwpand palpable DP pulse. Knee immobilizer in place. I/O last 3 completed shifts: In: 2325 [P.O.:2325] Out: 2950 [Urine:2950] DIAGNOSTICS No results for input(s): WBC, HGB, HCT, MCV, PLT in the last 48 hours. No results for input(s): NA, K, CL, BICARB, CREATININE, BUN, GLUCOSE, MG, CA in the last 48 hours. No results for input(s): INR, PT in the last 48 hours. No results for input(s): SEDRATE, CRP in the last 48 hours. ASSESSMENT / PLAN IMPRESSION/REPORT/PLAN #1 Primary Osteoarthritis Knee Left Surgical Diagnosis/Procedure(s) Status post left TKA, primary hinge Comorbidities Present on Admission Medical History[1] Assessment: Patient still hoping for home discharge. Calling daughter to see if this is possible. If not, SNF placement working today Activity: WBAT operative extremity, with no additional restrictions VTE: Eliquis 2.5 mg BID for 30 days Other: Oral TXA 1.95g for 7 days Wound care: absorbable sutures, Dermabond, Aquacel - remove POD 7 PMH: Prior CVA w/subsequent left-sided hemiplegia/dystonia, hx of DVT following stroke in 1991 DC/Barriers: Home Follow Up: 12 weeks with radiographs Additional Notes: N/A Consults: N/A Anticipated Disposition: Patient to talk to social work team today about SNF placement. Unsafe to mobilize to and use bathroom safely by herself Follow-up: Patient will follow-up with in the clinic in 3 months Christiano Robles M.D. Please contact [facility] service during business hours with any questions or concerns regarding this patient. After hours, 6pm - 6am and on weekends contact [facility] at [phone]. [1] Past Medical History: Diagnosis Date Anemia Not sure of date. Had endoscopy Anxiety Generalized Disorder 1992 Blood Transfusion No Diagnosis 1988 before hystetectomy and again after hysterectomy Cataract 2013 had cataract surgery in both eyes Complication Anesthesia Initial Have to be completely put amanda for colonoscopy. I have a twisted colon snd sedation doesn???t work Depressive Disorder 1992 Hypothyroidism 1992 Migraine Headache 1988 Osteopenia Not sure of exact date Other Injury Of Unspecified Body Region 1965 Broken jaw(1965), broken foot(1993,broken hsnd Other Specified Health Status 1996 AVM,DYSTONIA Pneumonia 2004 Polyp Colon Not sure pf date Stroke (HCC) 1992 Thromboembolism NOS 1991 leg Transient Ischemic Attack 2013 * Melida Chris L.G.S.W. - 05/02/2025 2:43 PM CDT SUBJECTIVE Social work and nurse practitioner met with this patient to further plan for a safe and appropriatedischarge. Social work inquires about patients discharge plan. Patient feels she is not medically ready to discharge at this time as her leg is very swollen. It was explained by primary services that this patient is medically ready to discharge from the hospital, although we can explore rehab options, if patient would like to. Patient declines this option. She would like to return home with support from her daughter. Social work and service inquire about additional support at home; home health care/contiune physical and occupational therapy. Patient reports she goes to outpatient physical therapy at [facility]. Patient is unsure if they offer home health services. This social work administrator has communicated with [facility] in regards to home health P.T,they relay to this social work administrator that they do offer home health services, but they will need to review referral to see if they can accommodate this patient in the home setting. Social work has faxed d ocumentation accordingly. OBJECTIVE Anticipated Needs Anticipated Needs Functional Status: Transportation use (drive car, use taxi/bus), Housekeeping, Mobility, Shopping Assistive Devices: None Anticipated Modifications to the Patient's Home: None Transportation Needs: Support from family Does the patient need discharge transport arranged?: No Ride and Caregiver Arranged: Yes Ride Caregiver Provider: Eleonora Coe Phone Number for Ride/Caregiver: [phone] Anticipated Discharge Destination: Home or Self Care Continued physical therapy Patient/family are understanding and accepting of the discharge plan as described below. ASSESSMENT / PLAN Assessment Those noted above appear to have insight into the patient's needs at this time and are planning appropriately for discharge needs. They report agreement with the below plan with no further questions at this time. Anticipated barriers: Safe discharge plan Plan Social work will continue to coordinate with physical therapy agency in regards to home health services. [facility] [address] [place] [address] Kasey Bui 05/02/2025 * Sander Schmidt L.A.T., A.T.C., SPT - 05/02/2025 11:52 AM CDT Physical Therapy Inpatient Treatment SUBJECTIVE Patient's Name: Cristina Broussard Referring/Attending Provider: Eduardo Bahena M.D. Reason for Referral: Physical Therapy Evaluate and Treat Onset Date: 04/27/2025 History of Present Illness: Cristina Broussard is a 79 y.o. female who was admitted to in [place] on 04/27/2025 for Primary Osteoarthritis Knee Left [M17.12] Precautions Other Precautions: Fall risk, left hemiplegia, general aspiration precautions, balance impairment Pain Assessment: Pain Ratin/10 on a 0-10 point scale, Location: L Knee Patient states level of pain is acceptable or tolerable to participate in therapy Pain intervention(s) used to address pain greater than 4: ambulation/activity patient repositioned Pt states she received pain medicine from nursing prior to PT session and it hasn't lowered pain asmuch as she'd hoped yet. Patient/Caregiver Goals: Decrease pain, Return to home, and Return to prior level of function Subjective Comments: Agreeable to therapy session. OBJECTIVE Vital Signs Vitals not formally assessed during session. No concerns during chart review and the patient had nosigns or symptoms consistent with vital changes during therapy session. Outcome Measures: -[facility] Inpatient Short Form: AM-PAC Basic Mobility (V.2) How much help from another person do you currently need???If the patient hasn't done an activity recently, how much help from another person do you think he/she would needif he/she tried? 1. Turning from your back to your side while in a flat bed without using bedrails?: None 2. Moving from lying on your back to sitting on the side of a flat bed without using bedrails?: None 3. Moving to and from a bed to a chair (including a wheelchair)?: None 4. Standing up from a chair using your arms (e.g., wheelchair, or bedside chair)?: None 5. To walk in hospital room?: A Little 6. Climbing 3-5 steps with a railing?: A Lot AM-PAC Basic Mobility (V.2) Raw Score: 21 AM-PAC Basic Mobility (V.2) Standardized Score: 45.55 Interpretation: Based on scoring guidelines using the raw score value: Those going to home had an average score at or above 18 Those going to facility had an average score at or below 17 Clinicians answer the -PAC Inpatient Short Form based on observed patient activity and/or clinical judgement (patient can be scored without physically performing each activity). The AM-PAC is one of many factors to consider when discharge planning. Therapeutic Interventions: SUPINE TO SIT: - Assist Level: modified independent - Device: head of bed elevated and bedrail - Therapist Delivery: assessed - Assist/Cues Provided: none for - Comments: Pt able to perform activity on her own w/ use of bedrail and hospital bed features. SIT TO SUPINE: - Assist Level: modified independent - Device: head of bed elevated and bedrail - Therapist Delivery: assessed - Assist/Cues Provided: none for - Comments: Pt able to perform activity w/ use of RLE to assist w/ getting LLE into bed. SIT TO STAND: - Assist Level: modified independent - Device: gait belt and quad cane - Surface: bed - Therapist Delivery: assessed - Assist/Cues Provided: none for - Comments: PT provided set up assistance by getting pt's quad cane from across the room STAND TO SIT: - Assist Level: modified independent - Device: gait belt and quad cane - Surface: bed - Therapist Delivery: assessed - Assist/Cues Provided: none for - Comments: Pt reaches back for support surface independently GAIT: - Distance: 200 feet - Assist Level:contact guard assist of 1 - Device: gait belt and quad cane - Quality: decreased gait speed, decreased step length, step through - Therapist Delivery: assessed - Assist/Cues Provided:none for - Comments: Pt ambulates w/ slower gait speed and shorter strides when fatigued. Pt's quad cane is missing a tip and pt said she felt less stable. Pt assisted w/ retrieving a quad cane for her to usewhile in the hospital. EDUCATION: -Role of PT in acute setting and collaborated with patient and/or family on goals and plan of care. -Home exercise program -TKA protocol The patient's status was discussed and the following coordination of care occurred with the RN Patient was left in bed at end of session with call light in reach, all needs met and questions answered. Assessment Discharge Therapy Needs - PT: Ongoing skilled physical therapy If skilled therapy is recommended, skilled therapy can include physical therapy provided by home health, outpatient clinic, or a post-acute facility. The location of these services is determined by the patient's care team in partnership with patient/family. Level of Care Needed - PT: Assistance with transfers (Comment), Assistance with walking and moving around the home, Assistance with stairs, Assistance with bed mobility, Physical assistance needed Barriers to Discharge Home: Current functional status, Fall risk, Limited caregiver availability, Limited caregiver support, Safety concerns Continue to assess. Patient owns quad cane and wheelchair. From a physical therapy perspective, the level of care above has been recommended for Ms. Broussardafter hospital discharge. This level of care is based on her functional abilities during today's session. This may change throughout the hospital course and will be updated as appropriate. Clinical Impression: Pt was resting in bed and was agreeable to PT . Pt presents with increased pain, decreased strength, impaired dynamic balance, and decreased activity tolerance which are resulting in difficulty performing bed mobility, transfers, gait, stairs, and ADL's at prior level of function. Progress remains limited by pain but pt agreeable to participating in PT session. She ambulated w/o chair follow and overall had a faster gait speed compared to 05/01. Pt stated she was tired and wished to rest in bed.PT encouraged pt to sit in chair after her nap and pt agreed to this. She states doing her exercises was painful yesterday. PT encouraged to push through discomfort, but not pain when performing exercises. Due to remaining below functional baseline, Crsitina Broussard continues to be appropriate for skilled physical therapy in order address the above impairments and functional limitations.PT will continue to progress patient as tolerated towards the following goals. Rehab potential: Ms. Broussard has Fair potential to achieve established physical therapy goals within the time frame outlined below. Progress: Progressing toward goals Recommendations for mobility/activity while hospitalized: chair 3x/day with assist x1 and gait belt and quad cane (2 hours max in chair at a time) gait 3x/day with assist x1 and gait belt and quad cane lower extremity exercises 4x/day Plan PT Plan Comments: Total knee arthroplasty home exercise program, bed mobility, transfers, gait training using appropriate gait aid Functional Goals: PT Inpatient Goals PT Goal #1: Patient will perform bed mobility independently. PT Goal #1 Status: Progressing PT Goal #2: Patient will perform transfers independently. PT Goal #2 Status: Progressing PT Goal #3: Patient will ambulate 50 meters using least restrictive gait aid modified independently. PT Goal #3 Status: Progressing Treatment Plan: Plan: Continue with current plan PT Amount: 1 visit per day PT Frequency: 7 times per week PT Inpatient Duration : Until goals are met or hospital discharge Requires Inpatient Follow-Up: Yes PT - Next Inpatient Appointment: 05/03/25 Patient agrees with the plan of care and goals. Treatment interventions may include: Treatment/Interventions: Therapeutic exercise, Therapeutic functional activity, Neuromuscular re-education, Self-care/home management, Gait training Billing: Time Spent with Patient Therapeutic Interventions Therapeutic Activity (min): 15 min Time Tracking Total Timed Units (min): 15 min Total Treatment Time (min): 15 min Ravinder Mar, Britton, SPT Cosigned by Ladi Fonseca P.T., D.P.T. at 05/02/2025 1:07 PM CDT Associated attestation - Ladi Fonseca P.T., D.P.T. - 05/02/2025 1:07 PM CDT This therapist has reviewed all documentation and supervised today???s session. The therapist agrees with the plan developed in collaboration with the patient. * Christiano Robles M.D. - 05/02/2025 7:36 AM CDT [facility] PROGRESS NOTE SUBJECTIVE This patient was seen in the acute postoperative setting 5 Days Post-Op s/p L complex primary TKA (hinge construct). Afebrile, vitals stable. NAEO. AFVSS. No f/c/n/v/cp/sob. Pain well controlled. Urinating well spontaneously. Passing gas. Nonew labs, DVT US negative for acute clot. Will repeat in 2 weeks for what seemed to be chronic femoral vein changes. Worked well with PT yesterday walking 150 feet, patient still unsteady getting to c ommode and does not feel safe using it by herself without risk of falling. OBJECTIVE VITAL SIGNS Temperature: [36.6 ??C-36.8 ??C] 36.6 ??C Resp Rate: [15-18] 15 Blood Pressure: (91-139)/(51-73) 118/62 SpO2: [91 %-96 %] 96 % Flow Rate (L/min): [1 L/min] 1 L/min Pulse Rate: [87-98] 87 PHYSICAL EXAM General: NAD. Neuro: Alert and engaged, answers questions appropriately. Cardiovascular: Regular rate. Respiratory: Regular respiratory rate. Normal work of breathing. Musculoskeletal: On examination of the operative lower extremity, surgical dressing is clean, dry, and intact. Does not fire TA or EHL, no ankle plantar or dorsiflexion but this is her baseline from prior stroke Foot wwp and palpable DP pulse. Knee immobilizer in place. I/O last 3 completed shifts: In: 940 [P.O.:940] Out: 500 [Urine:500] DIAGNOSTICS No results for input(s): WBC, HGB, HCT, MCV, PLT in the last 48 hours. No results for input(s): NA, K, CL, BICARB, CREATININE, BUN, GLUCOSE, MG, CA in the last 48 hours. No results for input(s): INR, PT in the last 48 hours. No results for input(s): SEDRATE, CRP in the last 48 hours. ASSESSMENT / PLAN IMPRESSION/REPORT/PLAN #1 Primary Osteoarthritis Knee Left Surgical Diagnosis/Procedure(s) Status post left TKA, primary hinge Comorbidities Present on Admission Medical History[1] Assessment: Patient still hoping for home discharge. Should continue to talk about SNF placement as well. Activity: WBAT operative extremity, with no additional restrictions VTE: Eliquis 2.5 mg BID for 30 days Other: Oral TXA 1.95g for 7 days Wound care: absorbable sutures, Dermabond, Aquacel - remove POD 7 PMH: Prior CVA w/subsequent left-sided hemiplegia/dystonia, hx of DVT following stroke in 1991 DC/Barriers: Home Follow Up: 12 weeks with radiographs Additional Notes: N/A Consults: N/A Anticipated Disposition: Patient to talk to social work team today about SNF placement. Unsafe to mobilize and use bathroom safely by herself Follow-up: Patient will follow-up with in the clinic in 3 months Christiano Robles M.D. Please contact [employer] during business hours with any questions or concerns regarding this patient. After hours, 6pm - 6am and on weekends contact [facility] at [phone]. [1] Past Medical History: Diagnosis Date Anemia Not sure of date. Had endoscopy Anxiety Generalized Disorder 1992 Blood Transfusion No Diagnosis 1988 before hystetectomy and again after hysterectomy Cataract 2013 had cataract surgery in both eyes Complication Anesthesia Initial Have to be completely put amanda for colonoscopy. I have a twisted colon snd sedation doesn???t work Depressive Disorder 1992 Hypothyroidism 1992 Migraine Headache 1988 Osteopenia Not sure of exact date Other Injury Of Unspecified Body Region 1965 Broken jaw(1965), broken foot(1993,broken hsnd Other Specified Health Status 1996 AVM,DYSTONIA Pneumonia 2004 Polyp Colon Not sure pf date Stroke (HCC) 1991 Thromboembolism NOS 1991 leg Transient Ischemic Attack 2013 * Sander Schmidt, L.A.T., A.T.C., SPT - 05/01/2025 2:17 PM CDT Physical Therapy Inpatient Treatment SUBJECTIVE Patient's Name: Cristina Broussard Referring/Attending Provider: Eduardo Bahena M.D. Reason for Referral: Physical Therapy Evaluate and Treat Onset Date: 04/27/2025 History of Present Illness: Cristina Broussard is a 79 y.o. female who was admitted to in [place] on 04/27/2025 for Primary Osteoarthritis Knee Left [M17.12] Precautions Other Precautions: Fall risk, left hemiplegia, general aspiration precautions, balance impairment Pain Assessment: Pain not reported during session. Patient/Caregiver Goals: Return to home and Return to prior level of function Subjective Comments: Agreeable to therapy session. OBJECTIVE Vital Signs Vitals taken during session: O2 saturation: 92% and O2 flow: 1 L/min nasal cannula Pt dropped below 88% O2 saturation on room air, so PT brought mobile O2 unit for ambulation and titrating to maintain O2 saturation >90%. Outcome Measures: AM-PAC Inpatient Short Form: AM-PAC Basic Mobility (V.2) How much help from another person do you currently need???If the patient hasn't done an activity recently, how much help from another person do you think he/she would needif he/she tried? 1. Turning from your back to your side while in a flat bed without using bedrails?: None 2. Moving from lying on your back to sitting on the side of a flat bed without using bedrails?: A Little 3. Moving to and from a bed to a chair (including a wheelchair)?: A Little 4. Standing up from a chair using your arms (e.g., wheelchair, or bedside chair)?: A Little 5. To walk in hospital room?: A Little 6. Climbing 3-5 steps with a railing?: A Lot AM-PAC Basic Mobility (V.2) Raw Score: 18 AM-PAC Basic Mobility (V.2) Standardized Score: 41.05 Interpretation: Based on scoring guidelines using the raw score value: Those going to home had an average score at or above 18 Those going to facility had an average score at or below 17 Clinicians answer the AM-[facility] Inpatient Short Form based on observed patient activity and/or clinical judgement (patient can be scored without physically performing each activity). The AM-PAC is one of many factors to consider when discharge planning. Therapeutic Interventions: SUPINE TO SIT: - Assist Level: supervision of 1 - Device: head of bed elevated and bedrail - Therapist Delivery: assessed - Assist/Cues Provided: none for - Comments: Pt performed w/ L knee immobilizer. PT present to monitor pt symptoms of dizziness/orthostatic hypotension. PT monitored pt for safety and positioning. SIT TO STAND: - Assist Level: minimal assist of 1 - Device: gait belt and front wheeled walker - Surface: bed and toilet - Therapist Delivery: assessed and assisted - Assist/Cues Provided: verbal and manual for anterior weight shift, manual facilitation provided for force generation, and use of momentum - Comments: PT assisted pt w/ transfer from low toilet height STAND TO SIT: - Assist Level: minimal assist of 1 - Device: gait belt and front wheeled walker - Surface: chair and toilet - Therapist Delivery: assessed and assisted - Assist/Cues Provided: verbal and manual for alignment with seated surface, eccentric control, safety, and lower extremity placement - Comments: PT assisted pt w/ transfer to low toilet height and adjusting once on toilet for properpositioning GAIT: - Distance: 20 feet from bed to toilet, then in hallway for 150ft w/ 1 standing rest break against railing. - Assist Level:contact guard assist of 1, + assist for line/device management - Device: gait belt, front wheeled walker, and portable O2 unit - Quality: decreased step length, unsteady, step to - Therapist Delivery: assessed - Assist/Cues Provided:verbal for pacing and taking breaks as needed - Comments: Pt has L hemiplegia and ambulates w/ quad cane in R hand and performs L adduction swingthen w/ R step to gait pattern. Pt has been ambulating w/ similar technique since before surgery. Pt ambulated today w/ L immobilizer brace donned. THERAPEUTIC EXERCISE: Seated Therapeutic Exercise: - Side: left lower extremity(ies) - Mode: active range of motion - Exercises: ankle pumps and knee extension - Repetitions: 5 - Assist/Cues Provided: no cueing EDUCATION: Provided education on role of physical therapy in the acute setting. Collaborated with patient and/or family on goals and plan of care. The patient's status was discussed and the following coordination of care occurred with the RN Patient was left in bedside chair, with nursing staff at end of session with call light in reach, all needs met and questions answered. Assessment Discharge Therapy Needs - PT: Ongoing skilled physical therapy If skilled therapy is recommended, skilled therapy can include physical therapy provided by home health, outpatient clinic, or a post-acute facility. The location of these services is determined by the patient's care team in partnership with patient/family. Level of Care Needed - PT: Assistance with transfers (Comment), Assistance with walking and moving around the home, Assistance with stairs, Assistance with bed mobility, Physical assistance needed Barriers to Discharge Home: Current functional status, Fall risk, Limited caregiver availability, Limited caregiver support, Safety concerns Continue to assess. Patient owns quad cane and wheelchair. From a physical therapy perspective, the level of care above has been recommended for Ms. Broussardafter hospital discharge. This level of care is based on her functional abilities during today's session. This may change throughout the hospital course and will be updated as appropriate. Clinical Impression: Pt was resting in bed and was agreeable to PT . Pt presents with increased pain, decreased ROM, decreased strength, impaired static balance, impaired dynamic balance, and decreased activity tolerances/p L TKA which are resulting in difficulty performing bed mobility, transfers, gait, stairs, and ADL's at prior level of function. Pt able to improve gait distance during session using quad cane in R hand and L knee immobilizer. As pt continued to ambulate, her gait quality worsened as shown by her decreased stride length and more arduous gait. Pt showed some frustration at current functional status and mobility level. PT reinforced importance of mobility and applauded her efforts during session to ambulate and participate in therapy. PT reviewed LLE exercises Due to remaining below functional baseline, Cristina Broussard continues to be appropriate for skilled physical therapy in order address the above impairments and functional limitations. PT will continue to progress patient as tolerated towards the following goals. Rehab potential: Ms. Broussard has Fair potential to achieve established physical therapy goals within the time frame outlined below. Progress: Progressing toward goals Recommendations for mobility/activity while hospitalized: chair 3x/day with assist x1 and gait belt and front wheeled walker (2 hours max in chair at a time) gait 3x/day with assist x1 and gait belt and front wheeled walker lower extremity exercises 3x/day Plan PT Plan Comments: Total knee arthroplasty home exercise program, bed mobility, transfers, gait training using appropriate gait aid Functional Goals: PT Inpatient Goals PT Goal #1: Patient will perform bed mobility independently. PT Goal #1 Status: Progressing PT Goal #2: Patient will perform transfers independently. PT Goal #2 Status: Progressing PT Goal #3: Patient will ambulate 50 meters using least restrictive gait aid modified independently. PT Goal #3 Status: Progressing Treatment Plan: Plan: Continue with current plan PT Amount: 1 visit per day PT Frequency: 7 times per week PT Inpatient Duration : Until goals are met or hospital discharge Requires Inpatient Follow-Up: Yes PT - Next Inpatient Appointment: 05/02/25 Patient agrees with the plan of care and goals. Treatment interventions may include: Treatment/Interventions: Therapeutic exercise, Therapeutic functional activity, Neuromuscular re-education, Self-care/home management, Gait training Billing: Time Spent with Patient Therapeutic Interventions Therapeutic Activity (min): 28 min Time Tracking Total Timed Units (min): 28 min Total Treatment Time (min): 28 min Ravinder Mar, A.T.C., SPT Cosigned by Mohan Daugherty PLuci, D.P.T. at 05/01/2025 3:40 PM CDT Associated attestation - Mohan Daugherty P.T., D.P.T. - 05/01/2025 3:40 PM CDT This therapist has reviewed all documentation and supervised today???s session. The therapist agrees with the plan developed in collaboration with the patient. * Christiano Robles M.D. - 05/01/2025 5:36 AM CDT [facility] PROGRESS NOTE SUBJECTIVE This patient was seen in the acute postoperative setting 4 Days Post-Op s/p L complex primary TKA (hinge construct). Afebrile, vitals stable. Patient greatly improved with therapy walking 20 feet yesterday. No hypotension yesterday. Patient pain better controlled. Denies chest pain, SOB, paresthesias. Patient is having some increased left foot swelling and calf pin. Left lower extremity elevated on two pillows this morning. Addendum 1452: Patient DVT US negative for acute DVT but possible chronic blockage. Patient having some drainage from inferior portion of incision. Aquacel changed, wrapped, knee immobilizer and oral TXA started for next 7 days. OBJECTIVE VITAL SIGNS Temperature: [36.4 ??C-36.7 ??C] 36.4 ??C Resp Rate: [14-16] 14 Blood Pressure: (99-138)/(45-72) 116/72 SpO2: [89 %-96 %] 93 % Flow Rate (L/min): [1 L/min] 1 L/min Pulse Rate: [82-93] 82 PHYSICAL EXAM General: NAD. Neuro: Alert and engaged, answers questions appropriately. Cardiovascular: Regular rate. Respiratory: Regular respiratory rate. Normal work of breathing. Musculoskeletal: On examination of the operative lower extremity, surgical dressing is clean, dry, and intact. Does not fire TA or EHL, no ankle plantar or dorsiflexion but this is her baseline from prior stroke Foot wwp and palpable DP pulse I/O last 3 completed shifts: In: 960 [P.O.:960] Out: 4600 [Urine:4600] DIAGNOSTICS No results for input(s): WBC, HGB, HCT, MCV, PLT in the last 48 hours. Recent Labs 04/29/25 0655 NA 138 CL 102 BICARB 26 CREATININE 0.69 BUN 20 GLUCOSE 86 No results for input(s): INR, PT in the last 48 hours. No results for input(s): SEDRATE, CRP in the last 48 hours. ASSESSMENT / PLAN IMPRESSION/REPORT/PLAN #1 Primary Osteoarthritis Knee Left Surgical Diagnosis/Procedure(s) Status post left TKA, primary hinge Comorbidities Present on Admission Medical History[1] Assessment: Patient still hoping for home discharge. Should continue to talk about SNF placement as well. DVT US LLE ordered due to increasing left calf pain. Activity: WBAT operative extremity, with no additional restrictions VTE: Eliquis 2.5 mg BID for 30 days Wound care: absorbable sutures, Dermabond, Aquacel - remove POD 7 PMH: Prior CVA w/subsequent left-sided hemiplegia/dystonia, hx of DVT following stroke in 1991 DC/Barriers: Home Follow Up: 12 weeks with radiographs Additional Notes: N/A Consults: N/A Anticipated Disposition: 1-2 days, pending PT/OT eval Follow-up: Patient will follow-up with in the clinic in 3 months Christiano Robles M.D. Please contact [employer] during business hours with any questions or concerns regarding this patient. After hours, 6pm - 6am and on weekends contact [facility] at [phone]. [1] Past Medical History: Diagnosis Date Anemia Not sure of date. Had endoscopy Anxiety Generalized Disorder 1992 Blood Transfusion No Diagnosis 1988 before hystetectomy and again after hysterectomy Cataract 2013 had cataract surgery in both eyes Complication Anesthesia Initial Have to be completely put amanda for colonoscopy. I have a twisted colon snd sedation doesn???t work Depressive Disorder 1992 Hypothyroidism 1992 Migraine Headache 1988 Osteopenia Not sure of exact date Other Injury Of Unspecified Body Region 1966 Broken jaw(1965), broken foot(1993,broken hsnd Other Specified Health Status 1996 AVM,DYSTONIA Pneumonia 2004 Polyp Colon Not sure pf date Stroke (HCC) 1992 Thromboembolism NOS 1991 leg Transient Ischemic Attack 2013 * Melida Chris L.G.S.W. - 04/30/2025 2:49 PM CDT SUBJECTIVE Social work met with this patient to continue to plan for a safe and appropriate discharge. Social work inquires what this patients plans are in regards to discharge. She reports she hopes to return home once she is medically stable. Social work inquires further if rehab and/or continued physical and occupational therapy would be beneficial at the time of discharge. Social work provides in network lists for long term facilities and home health care. Patient declines and reports her daughter is a nurse and she will provide physical and emotional supports throughout her recovery. Social work provided work phone number if additional questions or needs arise and encouraged this patient (and daughter) to reach out if homegoing needs become apparent. OBJECTIVE Anticipated Needs Anticipated Needs Functional Status: Transportation use (drive car, use taxi/bus), Housekeeping, Mobility, Shopping Assistive Devices: None Anticipated Modifications to the Patient's Home: None Transportation Needs: Support from family Does the patient need discharge transport arranged?: No Ride and Caregiver Arranged: Yes Ride Caregiver Provider: Eleonora Coe Phone Number for Ride/Caregiver: [phone] Anticipated Discharge Destination: Home or Self Care Discussed with patient other community resources for dismissal. Provided the following resources: Private pay [facility] options. Patient/family are understanding and accepting of the discharge plan as described below. ASSESSMENT / PLAN Assessment Those noted above appear to have insight into the patient's needs at this time and are planning appropriately for discharge needs. They report agreement with the below plan with no further questions at this time. No barriers identified at this time. Plan Once medically stable, patient hopes to discharge, home self care, while receiving supports from her daughter. Social work will continue to follow, should home going and/or psychosocial needs arise. Kasey Bui 04/30/2025 * Gerard Cotter P.T., D.P.T. - 04/30/2025 2:05 PM CDT Physical Therapy Inpatient Treatment Note SUBJECTIVE Patient's Name: Cristina Broussard Referring/Attending: Eduardo Bahena M.D. Medical Diagnosis: Primary Osteoarthritis Knee Left [M17.12] Reason for Referral: PT Evaluate and Treat Weight-bearing as tolerated left lower extremity Payor: MEDICARE / Plan: MEDICARE A AND B / Product Type: Medicare / History of Present Illness: Status post left total knee arthroplasty (complex hinge construct) Family/Caregiver Present: No Patient/Caregiver Goals: Patient would like to discharge home. Patient Comments: Patient reports moderate left knee pain. Patient states it feels swollen to her. Precautions Weight Bearing Status: Weight-bearing as tolerated left lower extremity Other Precautions: Fall risk, left hemiplegia, general aspiration precautions, balance impairment OBJECTIVE Cristina'leonardo NOHARM modalities were not used during their therapy session. Vitals monitored throughout session; within normal ranges. Vitals stable per chart review. Treatment consisted of: Bed Mobility - Supine to Sit # of Assistants: 1 Level of Assistance: Supervision/Set-up, Minimal assistance Device: Bed rail Cuing: Tactile Comments: Left lower extremity assist with positioning. Sit to Stand Transfers # of Assistants: 1 Transfer Surface: Bed Transfer Equipment: Quad cane Level of Assistance: Contact guard assistance, Minimal assistance Comments: Patient pushes up with her right upper extremity then reaches for her quad cane showing minimal instability. Stand to Sit Transfers # of Assistants: 1 Transfer Surface: Chair Transfer Equipment: Quad cane Level of Assistance: Minimal assistance Comments: Patient did a nice job of reaching back to the chair then squaring up to the front of thechair prior to sitting. Gait Assessment/Training Distance (m): 25 m Surface: Even Device: Quad cane # of Assistants: 1 Level of Assistance: Minimal assistance Assessment of Gait: Patient demonstrated a step to pattern. Patient declined use of her AFO due to increased foot swelling. Patient did not want to use her shoes. Patient hyperextends her left knee during stance phase and her ankle is in a slight plantar-flexed position. Patient's showed mild instability with no gross loss of balance using her quad cane. Exercise - Protocol Total Joints Exercise: Total knee Total Joints Exercise Comments: Performed assisted straight leg raises in bed x5 reps, assisted ankle pumps bilaterally, calf stretch on the left and patient was unable to dorsiflex to neutral passively, seated knee active assistive to passive [id number] -5-0-45??. Patient can actively extend her knee but has minimal active flexion of her knee. Attempted heel slides but patient had too much increased tone to allow knee flexion to occur. Patient's nurse was contacted and patient's status was discussed Patient was left in bedside chair at end of session with call light in reach, all needs met and questions answered. Outcome Measures [facility] Inpatient Short Form: -[facility] Basic Mobility (V.2) How much help from another person do you currently need???If the patient hasn't done an activity recently, how much help from another person do you think he/she would needif he/she tried? 1. Turning from your back to your side while in a flat bed without using bedrails?: None 2. Moving from lying on your back to sitting on the side of a flat bed without using bedrails?: A Little 3. Moving to and from a bed to a chair (including a wheelchair)?: A Little 4. Standing up from a chair using your arms (e.g., wheelchair, or bedside chair)?: A Little 5. To walk in hospital room?: A Little 6. Climbing 3-5 steps with a railing?: A Lot -[facility] Basic Mobility (V.2) Raw Score: 18 -[facility] Basic Mobility (V.2) Standardized Score: 41.05 Interpretation: Clinicians answer the [facility] Inpatient Short Form based on observed patient activity and/or clinical judgement (ie. patient can be scored without physically performing each activity) Based on scoring guidelines using the raw score value: Those going to home had an average score at or above 18 Those going to facility had an average score at or below 17 Assessment Discharge Therapy Needs - PT: Ongoing skilled physical therapy Skilled therapy can include physical therapy provided by home health, outpatient clinic, or a post-acute facility. The location of these services is determined by the patient's care team in partnership with patient/family. Level of Care Needed - PT: Assistance with transfers (Comment), Assistance with walking and moving around the home, Assistance with stairs, Assistance with bed mobility, Physical assistance needed Continue to assess. Patient owns quad cane and wheelchair. Barriers to Discharge Home: Current functional status, Fall risk, Limited caregiver availability, Limited caregiver support, Safety concerns From a physical therapy perspective, the level of care above has been recommended for Ms. Broussardafter hospital discharge. This level of care is based on her functional abilities during today's session. This may change throughout the hospital course and will be updated as appropriate. Clinical Impression of today's session: Patient showed functional progress today being able to perform gait training using a quad cane on the right. Patient has increased tone on her left side and likely chronic contractures of her plantarflexors. Patient does have mild hyperextension during stance phase on the left. Patient currently requires Min assist for bed mobility, transfers, and gait training using a quad cane. Rehab potential: Ms. Broussard has Fair potential to achieve established physical therapy goals within the time frame outlined below. Progress: Progressing toward goals Functional Goals and Timeframes: PT Inpatient Goals PT Goal #1: Patient will perform bed mobility independently. PT Goal #1 Status: Progressing PT Goal #2: Patient will perform transfers independently. PT Goal #2 Status: Progressing PT Goal #3: Patient will ambulate 50 meters using least restrictive gait aid modified independently. PT Goal #3 Status: Progressing Plan Patient agrees with the plan of care and goals. Treatment Plan: Plan: Continue with current plan PT Frequency: PT Amount: 1 visit per day PT Frequency: 7 times per week PT Inpatient Duration : Until goals are met or hospital discharge Requires Inpatient Follow-Up: Yes PT - Next Inpatient Appointment: 05/01/25 PT Plan Comments: Total knee arthroplasty home exercise program, bed mobility, transfers, gait training using appropriate gait aid Treatment interventions may include: Treatment/Interventions: Therapeutic exercise, Therapeutic functional activity, Neuromuscular re-education, Self-care/home management, Gait training Billing: Time Spent with Patient Therapeutic Interventions Gait Training (min): 10 min Therapeutic Activity (min): 19 min Time Tracking Total Timed Units (min): 29 min Total Treatment Time (min): 29 min Gerard Cotter P.T., D.P.T. * Christiano Robles M.D. - 04/30/2025 6:33 AM CDT [facility] PROGRESS NOTE SUBJECTIVE This patient was seen in the acute postoperative setting 3 Days Post-Op s/p L complex primary TKA (hinge construct). Afebrile, vitals stable. Patient did not work with therapy yesterday due ot breakfast in the AM and hypotension in the afternoon. Patient states she had some lightheadedness and Patient received 500cc LR bolus. Patient afebrile with stable vital signs this AM. Pain was slightly uncontrolled overnight but seemed to get better with pain meds, patient did not sleep great. Denies chest pain, SOB, paresthesias. Plan to work with therapy this AM. Started discussion about SNF this morning pending progression with physical therapy. OBJECTIVE VITAL SIGNS Temperature: [36.1 ??C-36.8 ??C] 36.7 ??C Resp Rate: [14-16] 15 Blood Pressure: (81-138)/(39-65) 116/56 SpO2: [87 %-96 %] 92 % Flow Rate (L/min): [0.5 L/min-1 L/min] 1 L/min Pulse Rate: [83-102] 95 PHYSICAL EXAM General: NAD. Neuro: Alert and engaged, answers questions appropriately. Cardiovascular: Regular rate. Respiratory: Regular respiratory rate. Normal work of breathing. Musculoskeletal: On examination of the operative lower extremity, surgical dressing is clean, dry, and intact. Does not fire TA or EHL, no ankle plantar or dorsiflexion but this is her baseline from prior stroke Foot wwp and palpable DP pulse I/O last 3 completed shifts: In: 2170 [P.O.:1670] Out: 4450 [Urine:4450] DIAGNOSTICS No results for input(s): WBC, HGB, HCT, MCV, PLT in the last 48 hours. Recent Labs 04/29/25 0655 NA 138 CL 102 BICARB 26 CREATININE 0.69 BUN 20 GLUCOSE 86 No results for input(s): INR, PT in the last 48 hours. No results for input(s): SEDRATE, CRP in the last 48 hours. ASSESSMENT / PLAN IMPRESSION/REPORT/PLAN #1 Primary Osteoarthritis Knee Left Surgical Diagnosis/Procedure(s) Status post left TKA, primary hinge Comorbidities Present on Admission Medical History[1] Assessment: Anticipate discharge disposition will be an issue and will work with social work on discussion of SNF or rehab alternatives to discharge. Activity: WBAT operative extremity, with no additional restrictions VTE: Eliquis 2.5 mg BID for 30 days Wound care: absorbable sutures, Dermabond, Aquacel - remove POD 7 PMH: Prior CVA w/subsequent left-sided hemiplegia/dystonia, hx of DVT following stroke in 1991 DC/Barriers: Home Follow Up: 12 weeks with radiographs Additional Notes: N/A Consults: N/A Anticipated Disposition: 2-3 days, pending PT/OT eval Follow-up: Patient will follow-up with in the clinic in 3 months Christiano Robles M.D. Please contact [facility] service during business hours with any questions or concerns regarding this patient. After hours, 6pm - 6am and on weekends contact [facility] at [phone]. [1] Past Medical History: Diagnosis Date Anemia Not sure of date. Had endoscopy Anxiety Generalized Disorder 1992 Blood Transfusion No Diagnosis 1988 before hystetectomy and again after hysterectomy Cataract 2013 had cataract surgery in both eyes Complication Anesthesia Initial Have to be completely put amanda for colonoscopy. I have a twisted colon snd sedation doesn???t work Depressive Disorder 1992 Hypothyroidism 1992 Migraine Headache 1988 Osteopenia Not sure of exact date Other Injury Of Unspecified Body Region 1966 Broken jaw(1965), broken foot(1993,broken hsnd Other Specified Health Status 1996 AVM,DYSTONIA Pneumonia 2004 Polyp Colon Not sure pf date Stroke (HCC) 1992 Thromboembolism NOS 1992 leg Transient Ischemic Attack 2013 * Jaqueline Ramirez P.T., D.P.T., OncCS - 04/29/2025 1:12 PM CDT 04/29/25 1311 Reason Therapy Missed Reason Therapy Missed Medical hold AM PT treatment attempted, patient requesting later in the day as she would like to eat breakfast. PM PT treatment attempted, spoke with RN - patient receiving bolus for hypotension. Not medically appropriate for PT. Will follow up next calendar date. Jaqueline Ramirez P.T., [place]orys.P.T[place], OncCS * Lorri Coronel M.D. - 04/29/2025 9:53 AM CDT [facility] PROGRESS NOTE SUBJECTIVE This patient was seen in the acute postoperative setting 2 Days Post-Op s/p L complex primary TKA (hinge construct). Afebrile, vitals stable. She pivoted with PT/OT to the chair yesterday, but difficulty overall mobilizing and this presents an issue for discharge disposition but patient is refusing SNF per nursing report. This AM, she reports some ipsilateral hip pain when she tries to move and knee pain all the time. OBJECTIVE VITAL SIGNS Temperature: [36.3 ??C-36.9 ??C] 36.5 ??C Resp Rate: [15-16] 16 Blood Pressure: (86-118)/(40-64) 99/45 SpO2: [86 %-97 %] 96 % Flow Rate (L/min): [0.5 L/min-1.5 L/min] 0.5 L/min Pulse Rate: [78-118] 83 PHYSICAL EXAM General: NAD. Neuro: Alert and engaged, answers questions appropriately. Cardiovascular: Regular rate. Respiratory: Regular respiratory rate. Normal work of breathing. Musculoskeletal: On examination of the operative lower extremity, surgical dressing is clean, dry, and intact. Does not fire TA or EHL, no ankle plantar or dorsiflexion but this is her baseline from prior stroke Foot wwp and palpable DP pulse I/O last 3 completed shifts: In: 1974.2 [P.O.:1390] Out: 2800 [Urine:2800] DIAGNOSTICS Recent Labs 04/28/25 0241 WBC 15.0 H HGB 10.3 L HCT 29.7 L MCV 93.4 PLT 162 Recent Labs 04/29/25 0655 04/28/25 0241 NA 138 130 L CL 102 97 L BICARB 26 23 CREATININE 0.69 0.72 BUN 20 24 H GLUCOSE 86 138 No results for input(s): INR, PT in the last 48 hours. No results for input(s): SEDRATE, CRP in the last 48 hours. ASSESSMENT / PLAN IMPRESSION/REPORT/PLAN #1 Primary Osteoarthritis Knee Left Surgical Diagnosis/Procedure(s) Status post left TKA, primary hinge Comorbidities Present on Admission Medical History[1] Assessment: Anticipate discharge disposition will be an issue and will work with social work on discussion of SNF or rehab alternatives to discharge. Activity: WBAT operative extremity, with no additional restrictions VTE: Eliquis 2.5 mg BID for 30 days Wound care: absorbable sutures, Dermabond, Aquacel - remove POD 7 PMH: Prior CVA w/subsequent left-sided hemiplegia/dystonia, hx of DVT following stroke in 1991 DC/Barriers: Home Follow Up: 12 weeks with radiographs Additional Notes: N/A Consults: N/A Anticipated Disposition: 2-3 days, pending PT/OT eval Follow-up: Patient will follow-up with in the clinic in 3 months Lorri Coronel M.D. Please contact [employer] during business hours with any questions or concerns regarding this patient. After hours, 6pm - 6am and on weekends contact [facility] at [phone]. [1] Past Medical History: Diagnosis Date Anemia Not sure of date. Had endoscopy Anxiety Generalized Disorder 1992 Blood Transfusion No Diagnosis 1988 before hystetectomy and again after hysterectomy Cataract 2013 had cataract surgery in both eyes Complication Anesthesia Initial Have to be completely put amanda for colonoscopy. I have a twisted colon snd sedation doesn???t work Depressive Disorder 1992 Hypothyroidism 1992 Migraine Headache 1988 Osteopenia Not sure of exact date Other Injury Of Unspecified Body Region 1965 Broken jaw(1965), broken foot(1993,broken hsnd Other Specified Health Status 1996 AVM,DYSTONIA Pneumonia 2005 Polyp Colon Not sure pf date Stroke (HCC) 1992 Thromboembolism NOS 1992 leg Transient Ischemic Attack 2013 * Fredy Elder, Pharm.D., R.Ph., [facility] - 04/28/2025 7:54 AM CDT Pharmacist Progress Note 79 y.o. female w/ Primary Osteoarthritis Knee Left s/p Left - COMPLEX PRIMARY LEFT TOTAL KNEE ARTHROPLASTY WITH HINGE CONSTRUCT on 04/27/2025 Relevant PMH: left sided hemiplegia (s/p stroke 92'), TIA (13') spasticity, hypothyroid, migraines OBJECTIVE Home medications: Held: clonazepam, estrogen, supplements Changed: n/a Patient own medications: none Prophylaxis: VTE: apixaban 2.5 mg BID Wt 51 kg BMI 21.50 kg/m?? Review of Systems - Neuro: Pain 3-4, comfort goal 3 Scheduled medications: acetaminophen, celecoxib As needed medications: hydromorphone-IVP, oxycodone - CV/Pulm: VSS on NC 1.5 L/min - GI/FEN: -N/-V, -F/-S (LBM 04/25), senna-doc - : Urinary output 0.6 mL/kg/hr, SCr 0.72, tolterodine - ID: valacyclovir Px ASSESSMENT / PLAN - : Mild hyponatremia - possibly caused by fluid received/post-op fluid shifts, continue to monitor closely - PT: Await PT approval for homegoing Noted difficulty with TA/EHL/ankle plantar/dorsiflexion due to prior stroke Changes to medications anticipated at discharge: Pain regimen, bowel regimen Apixaban 2.5 mg BID Fredy Elder, PharmoPncho., R.Ph., BCPS * Lorri Coronel M.D. - 04/28/2025 6:39 AM CDT [facility] PROGRESS NOTE SUBJECTIVE This patient was seen in the acute postoperative setting 1 Day Post-Op s/p L complex primary TKA (hinge construct). Hgb 10.3, from 13.6 preop, consistent with acute blood loss anemia combined with hemodilution. 1.5L NC overnight while sleeping, room air yesterday afternoon. Afebrile. Other vitals stable. Has not yet worked with PT. OBJECTIVE VITAL SIGNS Temperature: [36 ??C-36.7 ??C] 36.4 ??C Heart Rate: [71-81] 75 Resp Rate: [10-18] 16 Blood Pressure: (78-120)/(42-74) 97/51 SpO2: [86 %-99 %] 94 % Flow Rate (L/min): [1 L/min-4 L/min] 1.5 L/min Pulse Rate: [67-82] 72 PHYSICAL EXAM General: NAD. Neuro: Alert and engaged, answers questions appropriately. Cardiovascular: Regular rate. Respiratory: Regular respiratory rate. Normal work of breathing. Musculoskeletal: On examination of the operative lower extremity, surgical dressing is clean, dry, and intact. Does not fire TA or EHL for me, no ankle plantar or dorsiflexion but this is her baseline from prior stroke Foot wwp and palpable DP pulse I/O last 3 completed shifts: In: 2659.6 [P.O.:620] Out: 675 [Urine:375; Blood:300] DIAGNOSTICS Recent Labs 04/28/25 0241 WBC 15.0 H HGB 10.3 L HCT 29.7 L MCV 93.4 PLT 162 Recent Labs 04/28/25 0241 NA 130 L CL 97 L BICARB 23 CREATININE 0.72 BUN 24 H GLUCOSE 138 No results for input(s): INR, PT in the last 48 hours. No results for input(s): SEDRATE, CRP in the last 48 hours. ASSESSMENT / PLAN IMPRESSION/REPORT/PLAN #1 Primary Osteoarthritis Knee Left Surgical Diagnosis/Procedure(s) Status post left TKA, primary hinge Comorbidities Present on Admission Medical History[1] Assessment: Activity: WBAT operative extremity, with no additional restrictions VTE: Eliquis 2.5 mg BID for 30 days Wound care: absorbable sutures, Dermabond, Aquacel - remove POD 7 PMH: Prior CVA w/subsequent left-sided hemiplegia/dystonia, hx of DVT following stroke in 1991 DC/Barriers: Home Follow Up: 12 weeks with radiographs Additional Notes: N/A Consults: N/A Anticipated Disposition: 2-3 days, pending PT/OT eval Follow-up: Patient will follow-up with in the clinic in 3 months Lorri Coronel M.D. Please contact [employer] during business hours with any questions or concerns regarding this patient. After hours, 6pm - 6am and on weekends contact [facility] at [phone]. [1] Past Medical History: Diagnosis Date Anemia Not sure of date. Had endoscopy Anxiety Generalized Disorder 1992 Blood Transfusion No Diagnosis 1988 before hystetectomy and again after hysterectomy Cataract 2013 had cataract surgery in both eyes Complication Anesthesia Initial Have to be completely put amanda for colonoscopy. I have a twisted colon snd sedation doesn???t work Depressive Disorder 1992 Hypothyroidism 1992 Migraine Headache 1988 Osteopenia Not sure of exact date Other Injury Of Unspecified Body Region 1965 Broken jaw(1965), broken foot(1993,broken hsnd Other Specified Health Status 1996 AVM,DYSTONIA Pneumonia 2005 Polyp Colon Not sure pf date Stroke (HCC) 1992 Thromboembolism NOS 1991 leg Transient Ischemic Attack 2012 Cosigned by Eduardo Bahena M.D. at 04/30/2025 9:59 AM CDT * Violette Cooney P.T., D.P.T., [facility] - 04/27/2025 6:56 PM CDT 04/27/25 1856 Reason Therapy Missed Reason Therapy Missed Patient declined therapy Patient declined therapy reporting she needed to sleep. Plan to initiate PT on 04/28/2025. * Shoshana Stewart Pharm.D., R.Ph., [facility] - 04/27/2025 6:46 AM CDT Images from the original note were not included. Admission Medication History Note Adherence issues: No concerns Medication list source: Patient, Care Everywhere or chart review, and Pharmacy or dispense records Medication related information: The patient is on oral estrogen 0.625 mg tablets. Baclofen is as needed medication, taking not often. Valacyclovir is for cold sore prophylaxis supervisor intermediates. Prior to Admission Medications Med List Status: Pharmacy Complete Set By: Shoshana Stewart Pharm.D., R.Ph., BCPS at 04/27/2025 6:46 AM Taking? Last Dose ascorbic acid (VITAMIN C ORAL) 04/26/2025 at Morning Take 1 tablet by mouth daily. baclofen (LIORESAL) 10 mg tablet 04/24/2025 at Morning Take 1 tablet by mouth 2 (two) times a day as needed. Muscle relaxant as needed calcium carb/D3/magnesium/zinc (CALCIUM CARB-D3-MAG [id number]) [phone] dk-bgle-bd-mg tablet 04/26/2025 at Bedtime Take 2 tablets by mouth at bedtime. clonazePAM (KlonoPIN) 1 mg tablet 04/27/2025 at 2:30 AM cyanocobalamin, vitamin B-12, 5,000 mcg tablet, IR & ER, biphasic 04/27/2025 at 2:30 AM Take 1 tablet by mouth daily. docosahexanoic acid/epa (FISH OIL ORAL) 04/26/2025 at Bedtime Take 2 capsules by mouth daily. estrogens, conjugated, (PREMARIN) 0.625 mg tablet 04/27/2025 at Morning Take 0.625 mg by mouth. ferrous sulfate 134 mg (27 mg iron) tablet 04/25/2025 at Morning Take 134 mg by mouth. Patient taking differently: Take 134 mg by mouth every other day. levothyroxine (SYNTHROID) 75 mcg tablet 04/27/2025 at 2:30 AM Take 1 tablet by mouth daily. MULTIVITAMIN WITH IRON ORAL 04/26/2025 at Morning Take 1 tablet by mouth daily. onabotulinumtoxinA injection 800 Units (Botox) -- 800 Units, intramuscular, Once, On Wed12/26/24 at 0000, For 1 doseReconstitute per package insert instructions according to windows systems architect. sesame oil with daphne geranium oil (50 mL) 04/27/2025 at 2:30 AM Administer 2 sprays into each nostril 2 (two) times a day. tolterodine (DetroL) 2 mg tablet 04/26/2025 at Bedtime Take 1 tablet by mouth 2 (two) times a day. TURMERIC ORAL 04/26/2025 at Morning Take 1 tablet by mouth daily. valACYclovir (VALTREX) 500 mg tablet 04/27/2025 at 2:30 AM Take 1 tablet (500 mg total) by mouth daily. Patient taking differently: Take 500 mg by mouth daily. For prophylaxis of cold sore documented in this encounter H&P Notes * Modesto Souza M.D., Ph.D. - 04/27/2025 6:45 AM CDT INTERVAL HISTORY AND PHYSICAL Interval History & Physical completed - see Anesthesia Preevalaution. Modesto Souza M.D., Ph.D. Source Note - Nathan Orozco MPAS, P.A.-C. - 04/20/2025 1:00 PM CDT REASON FOR VISIT: Preoperative Medical Evaluation REFERRING PHYSICIAN: Maurisio Samuel M.D. 04/27/2025: ARTHROPLASTY REPLACEMENT TOTAL KNEE; Eduardo Bahena M.D. Surgery Specific Risk Classification: Intermediate Risk SUBJECTIVE HISTORY OF PRESENT ILLNESS Cristina Broussard is a 79 y.o. female who is here for preanesthetic medical examination prior to the planned procedure as listed above. REVIEW OF SYSTEMS Constitutional: - Negative for fever. Skin: - Negative for skin rash. ENT: - Negative for difficulty hearing. Respiratory: - Negative for dry cough and shortness of breath. Cardiovascular: Positive for swelling in the legs or feet. - Negative for chest pain, pressure or tightness and rapid or fluttering heart beat. Neurological: Positive for loss of balance or tendency to fall easily. - Negative for seizures, loss of consciousness, light-headedness, numbness or shooting pain in hands, arms, legs, or feet and blackouts. Cardiac Risk Scoring: Canela Cardiac Score: 0.4% Revised Cardiac Risk Index 1 Point - Low Risk of Cardiac Event (0.9%) DASI Calculations Flowsheet Row Comprehensive Visit from 04/20/2025 in [facility] in [place], [place] DASI Total Score 9.95 Estimated V02 Peak 13.88 Estimated MET Level 3.97 OBJECTIVE OBJECTIVE PHYSICAL EXAMINATION General/Constitutional Constitutional Assessment: Normal General State of Health: Healthy appearing Airway (HEENT) Mallampati: II TM Distance: >3 FB Neck ROM: Full Mouth Opening: < 3 cm Upper Lip Bite Test: I Dental Assessment: Dentition intact Cardiovascular 2+ pitting edema present in the left lower extremity; 1+ pitting edema present in the right lower extremity. Rhythm: Regular Rate: Normal Cardiovascular Assessment: Peripheral edema Pulmonary Pulmonary Assessment: Clear Neurological Neurologic Assessment: Alert and oriented X 3 Musculoskeletal MSK Assessment: Normal Ambulate with: Cane and wheelchair Psychiatric Psychiatric Assessment: Calm ASSESSMENT / PLAN Anesthesia: Patient reports previous anesthesia related complications. Notes prior h/o multiple adverse experiences with MAC sedation. States that she has never been able to be adequately sedated andhas essentially had to undergo multiple colonoscopies in the past while being awake. Reassuringly, notes no specific concerns for any adverse anesthetic events following general sedation in the past and states that she would like to undergo general anesthesia for her procedure. Airway Hx: No previously documented airway history. Lab: Lab Results Component Value Date HGB 13.6 04/20/2025 HCT 41.1 04/20/2025 PLT 286 04/20/2025 WBC 7.3 04/20/2025 NA 141 11/28/2024 KSERUM 4.2 11/28/2024 CREATININE 0.83 04/20/2025 EGFR 71 04/20/2025 TSH 2.6 05/24/2020 ECG (04/20/25): IMPRESSION: Sinus rhythm with 1st degree A-V block Otherwise normal ECG When compared with ECG of 20-Dec-2012 09:13, OR interval has increased Reviewed by VIDAL Rapp ECHO: No recent studies; not indicated. #1 Preanesthetic Medical Exam #2 History Of Falling Pleasant 79-year-old female nonsmoker presenting to the clinic today for a preanesthetic medical exam. Further denies consumption of alcohol or use of recreational drugs or substances. Regarding activity, minimally active at her baseline d/t residual neurological deficits following prior major stroke in 1991 resulting in left-sided hemiplegia, however, obtains most activity from walking in her condo and completion of light house chores; unable to achieve > 5 METS. Reassuringly, patient denies noting any recent concern for adverse cardiopulmonary symptoms with activity or at rest. Preoperative medication and supplement guidance was provided to the patient at visit today. Of note, patient with h/o current falls with most recent fall occurring yesterday; reassuringly, denies noting any sustained SUPERIOR COURT JUDGE trauma or injury. #3 Anesthesia Complication Personal History As above. #4 Primary Osteoarthritis Knee Left Scheduled to undergo procedure as listed above. Please refer to prior surgical team documentation for additional background and details. #5 Hyperlipidemia Managed on once daily fish oil and tumeric; instructions provided to begin holding these supplements from now until scheduled procedure. 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 Underwent an AVM repair shortly after and later underwent stereotactic pallidotomy in 1997 for her dystonia. Reassuringly, denies noting any recent concern for changes within her neurological baseline. From a medication standpoint, instructions provided to hold baclofen the day of scheduled procedure. #10 Transient Ischemic Attack Personal History Or Stroke Personal History H/o 2 separate TIAs with 1st episode occurring in the late and 2nd episode occurring in 2012;reassuringly, denies noting any residual neurological deficits following these incidences. #11 Thrombosis Deep Vein Personal History H/o left lower extremity DVT following stroke in 1991, for which she was previously treated on Coumadin for 3 months. Denies noting any personal subsequent/prior clotting history or known genetic bleeding/clotting disorders. #12 Edema Lower Extremity Noted on exam today; L>R. Manages via use of conservative therapies including compression stockings and leg elevation that she has been provided instructions to continue. #13 Hypothyroidism Managed on daily levothyroxine; instructions provided to continue her current regimen as prescribed. #14 Urgency Urinary Managed on tolterodine and premarin; instructions provided to hold tolterodine the day of scheduledprocedure, however, patient may continue taking premarin as prescribed. #15 Deficiency Iron Managed on ferrous sulfate and vitamin-C supplementation; instructions provided to hold these supplements the day of the scheduled procedure. 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 #17 Anxiety Managed on once daily Klonopin; may continue her current regimen as prescribed. PATIENT EDUCATION: [facility] Checklist For Surgical Patient's (pamphlet link: Instructions To Get Ready for Your Surgery or Procedure [facility]:[place]). RECOMMENDATIONS: Patient medically optimized for planned procedure: Yes Further Recommendations: None [place]: Jd Orozco PA-C documented in this encounter Consult Notes * Shira Cates O.T., BCPR - 04/28/2025 2:33 PM CDT Occupational Therapy Dysphagia Evaluation/Treatment SUBJECTIVE Patient's Name: Cristina Johnson Daniellayarelis Referring/Attending Provider: Eduardo Bahena M.D. Medical Diagnosis: Primary Osteoarthritis Knee Left [M17.12] Reason for Referral: Reason for Referral: OT eval and treat-dysphagia Onset Date: 04/27/25 Payor: MEDICARE / Plan: MEDICARE A AND B / Product Type: Medicare / PERTINENT MEDICAL / SURGICAL HISTORY: Problem List[1] Surgical History[2] History of Present Illness:History of Present Illness: Status post left TKA. History of CVA with left sided weakness. No significant concerns of dysphagia from nursing, however, evaluation was requested due to weakness on left side and to ensure safety Family/Caregiver Present: No Patient/Caregiver Goals: No specific goals from patient when considering eating; patient reports noissues Patient Comments: No pain and stated she has learned to adapt to her left sided facial weakness during meals Precautions Other Precautions: Fall risk, L jenifer, WBAT L LE, general aspiration precautions OBJECTIVE Respiratory function: Room air, no distress Baseline Assessment: Mental Status: Alert Dysphagia: Within Normal Limits (WNL) Temperature Spikes Noted: No Respiratory Status: Room air Tracheostomy: No History of Intubation: No Premorbid Nutrition Method: Oral Premorbid Liquid Diet: IDDSI Level 0 Thin Premorbid/Current Diet: IDDSI Level 7 Regular Premorbid Med Administration: Whole with liquid Current Nutrition Method: Oral Current Diet Liquid: IDDSI Level 0 Thin Current Diet: IDDSI Level 7 Regular Current Med Administration: Whole with liquid Patient Positioning: Upright in bed Baseline Vocal Quality: Normal Volitional Cough: Weak (baseline status after CVA in 2014) Volitional Swallow: Within Normal Limits (WNL) Clinical Dysphagia: Oral / Motor Dentition: Adequate, Dentures top, Dentures bottom Labial ROM: Impaired Labial Retraction Left: Moderate Labial Retraction Right: Within Normal Limits (WNL) Labial Symmetry: Left, Moderate Labial Strength: Impaired Labial Strength Left: Moderate Labial Strength Right: Within Normal Limits (WNL) Lingual ROM: Within Normal Limits (WNL) Velum: (0) Within Normal Limits (WNL), (-1) Mild Mandible Strength: (-1) Mild Facial Symmetry: (-1) Mild Facial Sensation: mildly insensate on left side Cough: (0) Within Normal Limts Clinical Dysphagia Liquids: Level 0 Thin Solids: Level 7 Regular Level 0 Thin Presentation: Patient / caregiver Airway Protection: (No signs of aspiration) Compensatory Strategies Utilized in Exam: generally pushes liquids to the right side to swallow Level 7 Regular Type of Solid Presented: Other (Comment) (egg salad sandwich, raw celery and carrots with hummus) Presentation: Patient / caregiver Airway Protection: (No signs of aspiration) Compensatory Strategies Utilized in Exam: None needed Functional Oral Intake Scale score: 7. Total oral intake with no restrictions Quality of Life for Eating: Strongly Agree Does the patient have a tracheostomy? No. Team Communication: Patient's nurse was contacted and patient's status was discussed Patient was left in bed at end of session with call light in reach, all needs met and questions answered. Assessment Dysphagia Consult Assessment: Time Dysphagia Assessment Completed: 2:33pm Clinical Impression: Ms. Broussard participated in a clinical bedside dysphagia evaluation on 04/28/2025 to assess safetywith oral intake/risks for aspiration. Factors contributing to aspiration risk include: history of cerebrovascular accident and left sided facial weakness. Nursing had concerns for this, though patient noted she has learned to adapt and has not had any incidents. Dysphagia Clinical Assessment: The patient participated in a clinical dysphagia evaluation this date to assess safety with oral intake/ risks for aspiration. The patient is currently maintaining safeoxygen saturations and respirations on room air. Volitional cough and throat clear observed to be strong, however, voicing is weak (baseline). Physical examination of the oral mechanism revealed facial asymmetry at rest due to left sided weakness from prior CVA. Tracheal cartilage in midline and laryngeal rise present on palpation. Oral motor examination of the tongue, cheeks, and jaw was observed to be adequate, but limitations in lip strength and range on left side. Velar rise was symmetric and bilateral on phonation. Patient demonstrated only fair respiratory control with prolonged vowel of 15 seconds (normal 14-20sec). Patient stated that there was remote difficulties after her stroke years ago, but she has learned to adapt and has not had any trouble since. OT Dysphagia Clinical EvalResults : The patient participated in oral trials of thin liquids, puree and solid consistencies res ulting in no observable signs of aspiration/ penetration. No treatment needed as patient was aware of aspiration precautions. Evaluation only. Recommending patient stay on an oral diet of Level 7 - Regular (RG7) diet + Level 0 - Thin liquids with adherence to swallowing precautions for safety with oral intake. Patient is aware of how to compensate for her left-sided weakness, no concerns with this. Patient is at baseline with swallowing function. No additional skilled dysphagia intervention indicated at this time. DIET RECOMMENDATIONS: Diet Recommendations - Solids: IDDSI Level 7 Regular Diet Recommendations - Liquids: IDDSI Level 0 Thin Recommended Form of Meds: Whole, With liquid Recommended Aspiration Precautions: Recommended Aspiration Precautions: Good oral care 3-5 times a day, Eat small bites, take small sips, eat slowly Recommended Compensation Techniques/Adaptive Equipment: Positioning Recommendations: Upright as possible for all oral intake Rehab potential: Ms. Broussard has excellent potential to achieve established occupational therapy goals within the time frame outlined below. Plan Dysphagia Consult Plan: Plan: Discontinue OT dysphagia therapy Re-evaluate: As clinically indicated Time Spent with Patient Evaluations Clinical Dysphagia Evaluation (min): 13 min Time Tracking Total Treatment Time (min): 13 min For any questions feel free to page OT dysphagia Wednesday through Wednesday 7:00am to 4:00pm: Our service pager at 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 >Removal of hematoma and resection of arteriovenous DILATATION AND CURETTAGE OOPHORECTOMY, PARTIAL OR TOTAL, UNILATERAL OR BILATERAL;.. 1988 OTHER SURGICAL HISTORY 1990 & 1997 Gamma Knife,Pallidotomy, PALLIDOTOMY STEREOTACTIC Right 04/17/1998 >Right ventral posterior pallidotomy. STEREOTACTIC FRAME APPLICATION N/A 11/08/1991 Application of [place] stereotactic head frame for data acquisition. TONSILLECTOMY When I was a child TOTAL ABDOMINAL HYSTERECTOMY W/ BILATERAL SALPINGOOPHORECTOMY N/A 10/16/1988 Total abdominal hysterectomy. Bilateral salpingo-oophorectomy. * Cherelle Stevens P.T., D.P.T., OncCS - 04/28/2025 10:01 AM CDT Physical Therapy Inpatient Evaluation/Treatment By co-signing this note, the provider certifies the therapy being provided to this patient is reasonable and necessary for the diagnosis or treatment of this patient. SUBJECTIVE Patient's Name: Cristina Broussard Referring/Attending Provider: Eduardo Bahena M.D. Reason for Referral: Physical Therapy Evaluate and Treat Onset Date: 04/27/2025 Pertinent Medical / Surgical History: Medical History[1] Surgical History[2] History of Present Illness: Cristina Broussard is a 79 y.o. female who was admitted to in [place] on 04/27/2025 for Primary Osteoarthritis Knee Left [M17.12]. Relevant Medical History: History of stroke L side. Precautions Other Precautions: Fall risk, L jenifer, WBAT L LE. RST PT/OT Falls screen: Fall in the last 12 months: Yes Did you have an injury with the fall: Yes bruising. Unable to recall exact number of falls but doesfall often. Pain Assessment: Pain not reported, but observed in therapy session Patient/Caregiver Goals: No goals stated Subjective Comments: Agreeable to therapy session with encouragement. Home Living and Equipment: Lives with: Alone Receives help from: Family however unknown how involved per RN. Type of Home: [facility] Home Layout: One Level Home Access: Level entry Prior Level of Function and Mobility: Basic Activities of Daily Living: Independent however unsure how well patient was functioning in her environment. Unclear how much she was ambulating. Likely was not leaving her home. OBJECTIVE Evaluation Assessments: Strength: Left upper extremity impaired Left lower extremity impaired Range of Motion:Left upper extremity impaired Left lower extremity impaired No range of motion or strength in L UE. It appears L LE has been extended with minimal hip/knee movement for a long time; seems as if patient ambulates using this as a point of balance. Did not push rom of knee today due to hip pain in L. Balance: Static Sitting: Good (Maintains balance without support) Dynamic Sitting: Fair (Maintains balance with handheld assist) Static Standing: Poor (Requires assist to maintain balance) Dynamic Standing: Poor (Requires assist to maintain balance) Activity Tolerance: Sitting Tolerance: requires some assist to sit unsupported edge of bed. Standing Tolerance: poor this date due to left hip pain. Posture/Postural Control: Righting Reactions: poor when seated and in standing. Difficult to stand straight. Cognition: Alert, Oriented x 4, requires increased time and repetitious one step commands to follow Outcome Measures: -[facility] Inpatient Short Form: -[facility] Basic Mobility (V.2) How much help from another person do you currently need???If the patient hasn't done an activity recently, how much help from another person do you think he/she would needif he/she tried? 1. Turning from your back to your side while in a flat bed without using bedrails?: A Lot 2. Moving from lying on your back to sitting on the side of a flat bed without using bedrails?: A Lot 3. Moving to and from a bed to a chair (including a wheelchair)?: A Lot 4. Standing up from a chair using your arms (e.g., wheelchair, or bedside chair)?: A Little 5. To walk in hospital room?: Total 6. Climbing 3-5 steps with a railing?: Total AM-PAC Basic Mobility (V.2) Raw Score: 11 AM-PAC Basic Mobility (V.2) Standardized Score: 30.25 Interpretation: Based on scoring guidelines using the raw score value: Those going to home had an average score at or above 18 Those going to facility had an average score at or below 17 Clinicians answer the AM-PAC Inpatient Short Form based on observed patient activity and/or clinical judgement (patient can be scored without physically performing each activity). The AM-PAC is one of many factors to consider when discharge planning. Therapeutic Interventions: SUPINE TO SIT: - Assist Level: moderate assist of 1 - Device: head of bed elevated and bedrail - Therapist Delivery: assisted, educated, and facilitated - Assist/Cues Provided: verbal and manual for logrolling, lower extremity movement/management, lower extremity placement, and sequencing SIT TO STAND: - Assist Level: moderate assist of 1 - Device: gait belt and quad cane - Surface: bed - Therapist Delivery: assessed, assisted, and educated - Assist/Cues Provided: verbal, manual, and tactile for safety, sequencing, and technique - Comments: poorly tolerated. STAND TO SIT: - Assist Level: moderate assist of 1 - Device: gait belt and quad cane - Surface: chair - Therapist Delivery: assisted, educated, and facilitated - Assist/Cues Provided: verbal and manual for alignment with seated surface, device placement, and eccentric control - Comments: poorly tolerated. TRANSFER: - Surface:bed to chair - Assist Level: moderate assist of 1 - Device: gait belt and quad cane - Approach: stand pivot - Therapist Delivery: assessed, educated, and facilitated - Assist/Cues Provided: verbal, manual, and tactile for increased step length, placement of gait aid, and upright posture The patient's status was discussed and the following coordination of care occurred with the RN Patient was left in bedside chair at end of session with call light in reach, all needs met and questions answered. Assessment Discharge Therapy Needs - PT: Ongoing skilled physical therapy If skilled therapy is recommended, skilled therapy can include physical therapy provided by home health, outpatient clinic, or a post-acute facility. The location of these services is determined by the patient's care team in partnership with patient/family. Level of Care Needed - PT: Assistance with transfers (Comment), Assistance with walking and moving around the home, Assistance with stairs, Assistance with bed mobility, Physical assistance needed Barriers to Discharge Home: Current functional status, Fall risk, Limited caregiver availability, Limited caregiver support, Safety concerns Continue to assess. Patient owns quad cane and wheelchair. From a physical therapy perspective, the level of care above has been recommended for Ms. Broussardafter hospital discharge. This level of care is based on her functional abilities during today's session. This may change throughout the hospital course and will be updated as appropriate. Clinical Impression: Currently, patient presents with decreased range of motion, decreased strength, increased pain, impaired static balance, impaired dynamic balance, decreased activity tolerance, decreased safety awareness, and decreased cognition resulting in the following impaired bed mobility, impaired transfers, impaired gait, and impaired ability to complete ADLs. Patient it appears functions poorly at home, falling frequently, now with worse strength/function of L LE due to surgery. Able to pivot transfer today though quite poorly. We will continue to progress. Physical therapy treatment is medically necessary to restore and maximize function, maximize safetyand facilitate discharge to home, teach and educate the patient and/or caregivers. Recommendations for mobility/activity while hospitalized: chair 3x/day with assist x2 (2 hours max in chair at a time) Plan PT Plan Comments: Progress from pivots to gait as able. Functional Goals: PT Inpatient Goals PT Goal #1: Patient will perform bed mobility independently. PT Goal #2: Patient will perform transfers independently. PT Goal #3: Patient will ambulate 50 meters using least restrictive gait aid modified independently. Cristina Broussard has Fair rehab potential to meet the expected outcomes in a reasonable period of time. Treatment Plan: Plan: Plan of care initiated PT Amount: 1 visit per day PT Frequency: 7 times per week PT Inpatient Duration : Until goals are met or hospital discharge Requires Inpatient Follow-Up: Yes PT - Next Inpatient Appointment: 04/29/25 Patient agrees with the plan of care and goals. Treatment interventions may include: Treatment/Interventions: Therapeutic exercise, Therapeutic functional activity, Neuromuscular re-education, Self-care/home management, Gait training Billing: Tiered PT Evaluation Codes: Examination elements: 3 Clinical Presentation: Evolving Clinical Decision Making: Moderate complexity clinical decision making Time Spent with Patient Evaluations PT Eval - Low Complexity: 9 min Therapeutic Interventions Therapeutic Activity (min): 21 min Time Tracking Total Timed Units (min): 21 min Total Treatment Time (min): 30 min Cherelle Stevens P.T., D.P.T., OncCS [1] Past Medical History: Diagnosis Date Anemia Not sure of date. Had endoscopy Anxiety Generalized Disorder 1992 Blood Transfusion No Diagnosis 1988 before hystetectomy and again after hysterectomy Cataract 2014 had cataract surgery in both eyes Complication Anesthesia Initial Have to be completely put amanda for colonoscopy. I have a twisted colon snd sedation doesn???t work Depressive Disorder 1992 Hypothyroidism 1992 Migraine Headache 1988 Osteopenia Not sure of exact date Other Injury Of Unspecified Body Region 1966 Broken jaw(1966), broken foot(1993,broken hsnd Other Specified Health Status 1996 AVM,[place]ST[place] Pneumonia 2004 Polyp Colon Not sure pf date Stroke (HCC) 1991 Thromboembolism NOS 1991 leg Transient Ischemic Attack 2012 [2] Past Surgical History: Procedure Laterality Date APPENDECTOMY 1988 at the same time I had hyaterctomy ARTHRODESIS PROXIMAL INTERPHALANGEAL (PIP) N/A 01/31/2003 >Proximal interphalangeal joint (PIP) resection arthroplasties, fourth and fifth toes, with pinning, CRANIOTOMY ARIAN HOLES EVACUATION HEMATOMA Right 06/28/1992 Right frontoparietal craniotomy. >Removal of hematoma and resection of arteriovenous DILATATION AND CURETTAGE OOPHORECTOMY, PARTIAL OR TOTAL, UNILATERAL OR BILATERAL;.. 1988 OTHER SURGICAL HISTORY 1990 & 1997 Gamma Knife,Pallidotomy, PALLIDOTOMY STEREOTACTIC Right 04/17/1998 >Right ventral posterior pallidotomy. STEREOTACTIC FRAME APPLICATION N/A 11/08/1991 Application of [place] stereotactic head frame for data acquisition. TONSILLECTOMY When I was a child TOTAL ABDOMINAL HYSTERECTOMY W/ BILATERAL SALPINGOOPHORECTOMY N/A 10/16/1988 Total abdominal hysterectomy. Bilateral salpingo-oophorectomy. Cosigned by Eduardo Bahena M.D. at 04/30/2025 9:59 AM CDT * Melida Chris L.GAnshul - 04/27/2025 3:23 PM CDTAssociated Order(s): IP CONSULT TO CARE MANAGEMENT; IP CONSULT TO CARE MANAGEMENT; IP CONSULT TO CARE MANAGEMENT; IP CONSULT TO CARE MANAGEMENT Psychosocial Assessment SUBJECTIVE ASSESSMENT INFORMATION Referral Data Referral Source: Early Screen for Discharge Planning Referral Reason: Psychosocial assessment Previous Assessment: No [employer] Used: No Primary Language: [place] [employer] Used: No Sexuality/Pronoun: / Person(s) present during interview: patient and child Eleonora Disclaimer: They were advised of the various topics that will be assessed during this evaluation. They consented to proceed. The information provided in the assessment is based on review of the medical record as well as the face to face interview. They were advised that the content of this interview will be shared with the health care team and documented in the medical record. They were advised that anyone with access to their patient portal will have access to this information. It was discussed that staff are mandated reporters and they reported understanding. HISTORY OF PRESENT ILLNESS Medical History[1] SOCIAL HISTORY Citizenship: [place] Citizen Resident Status: [place] Res[place] Marital Status: Family / Household: patient lives alone in a condo. Patients daughter lives nearby and is availableto provide support. Support System: family members Primary Caregiver: self Caregiver Information: Caregiver Name: Eleonora Coe Caregiver Relationship: Daughter Caregiver Employment: retired Psychosocial Risk Factors Impacting the Patient: none Maltreatment: none reported Trauma: none reported Social Drivers of Health with Concerns No concerns present Current Stressors Current hospitalization and Discharge planning Coping Skills/Strengths Reading, TV, and Music OBJECTIVE FINANCES/INSURANCE Primary insurance: MEDICARE A AND B Secondary insurance: [facility] Financial concerns: No ADVANCE DIRECTIVES Advance Directives: Advanced Care Plan BASELINE FUNCTIONAL STATUS Baseline Activities of Daily Living Mobility: Requires aide of device Dressing: Independent Feeding: Independent Bathing: Independent Grooming: Independent Toileting: Independent Behavior: Appropriate, Pleasant, Calm, Cooperative Communication: Talks, Understands speaking, Understands [place] Shopping: Needs assistance Medication Management: Independent Housekeeping: Needs assistance Meal Prep: Independent Assistive Devices: Wheelchair - manual, Cane BASELINE SERVICES/RESOURCES Primary care clinic and provider: ELSEWHERE, PCP/ Services/Resources: ANTICIPATED NEEDS Anticipated Needs Functional Status: Transportation use (drive car, use taxi/bus), Housekeeping, Mobility, Shopping Assistive Devices: None Anticipated Modifications to the Patient's Home: None Transportation Needs: Support from family Does the patient need discharge transport arranged?: No Ride and Caregiver Arranged: Yes Ride Caregiver Provider: Eleonora Coe Phone Number for Ride/Caregiver: [phone] Anticipated Discharge Destination: Home or Self Care MENTAL HEALTH Mental Health History: Patient reports she takes klonopin for anxiety Suicide Risk and Safety Risk Assessment: Patient describes passive suicidal ideations from time to time, but denies action or intent behind these thoughts. Suicidal: No Homicidal: No Mental Status: Orientation: Oriented to person, place and time Level of consciousness: Drowsy Appearance: Relaxed Behavior observed: Calm Memory: Grossly intact based on social work assessment Cooperation: Cooperative Concentration: Grossly intact based on social work assessment Mood: , Fine, and Okay Affect: Within a constricted range Speech: Quiet. Thought content: No abnormality noted Thought process: Logical and goal-directed Judgement: Fair based on social work assessment Insight: Fair based on social work assessment SUBSTANCE USE denies ASSESSMENT / PLAN DISCUSSION Social work met with this patient for an early screen for discharge consult and to complete a full psychosocial assessment. Social work introduced self, explained their role, and what can be expectedduring this encounter. Patient is an 79 year old, female, from [place], [place]. She was admitted on 04/27 for primary osteoarthritis knee left. Patient is currently accompanied by her daughter, Eleonora. Patient reports she lives alone in a condo. She states she preforms most ADLs and IADLs independently/with aid of device.She relies on her daughter for support with transportation. Social work inquires how patient is coping with present hospitalization, she reports okay. Patient states she has had an anxiety diagnosis for 33 years and has been taking klonopin. Patient is unable to describe the effectiveness of this medication. In her free time patient enjoys watching TV, listening to music, and reading. Social work inquires about patients discharge plan, once she is medically ready. Patient and daughter are currently unsure what will be needed at the time of discharge. Patient reports her preferenceis to return home, she is open to home health care for continued physical and occupational therapy.Social work will follow closely and continue to plan for a safe and appropriate discharge. IMPRESSION Patient is lying in hospital bed during this encounter, she is alert and orientated x3 and appears to be a reliable historian. Patient is very pleasant and forthcoming and is eager for discharge, once deemed medically stable. INTERVENTIONS -Provided education regarding role of social work and set expectations surrounding discharge planning. -Provided supportive, strengths-based counseling related to hospitalization -Provided counseling utilizing empathic and reflective listening, normalization, problem solving and motivational interviewing techniques -Assessed needs, identified risk and protective factors -Provided supportive counseling and psychoeducation around: Community Resources, Problem Solving Skills, and Resilience Promotion. -Coordinated care with nurse and service to ensure continuity of care PLAN Social work will continue to meet with patient to identify a safe and appropriate discharge plan Social work will provide psychosocial and homegoing resources, as needed. Social Work will continue to follow. Anticipated barriers to the transition of care/plan: discharge plan Kasey Bui 04/27/2025 [1] Past Medical History: Diagnosis Date Anemia Not sure of date. Had endoscopy Anxiety Generalized Disorder 1992 Blood Transfusion No Diagnosis 1988 before hystetectomy and again after hysterectomy Cataract 2013 had cataract surgery in both eyes Complication Anesthesia Initial Have to be completely put amanda for colonoscopy. I have a twisted colon snd sedation doesn???t work Depressive Disorder 1992 Hypothyroidism 1992 Migraine Headache 1988 Osteopenia Not sure of exact date Other Injury Of Unspecified Body Region 1965 Broken jaw(1965), broken foot(1993,broken hsnd Other Specified Health Status 1996 AVM,DYSTONIA Pneumonia 2004 Polyp Colon Not sure pf date Stroke (HCC) 1991 Thromboembolism NOS 1991 leg Transient Ischemic Attack 2013 documented in this encounter Nursing Notes * Kelly Jones RTatyana - 05/03/2025 9:26 PM CDT Shift Goals: Clinical Goals for the Shift: pain management, VSS, patient will remain safe free from fall Identify possible barriers to meeting goals/advancing plan of care: none End of Shift Summary: Patient's pain is being managed with oxycodone every 4 hours as needed. Bloodpressure in on the lower side. The patient has been able to use the commode and sometimes walk to the bathroom with no complaints of dizziness or shortness of breath. Problem: PAIN - ADULT Goal: PT VERBALIZES/DEMONSTRATES ADEQUATE COMFORT LEVEL OR BASELINE Outcome: Progressing Problem: SAFETY ADULT Goal: Maintain a safe environment Outcome: Progressing * Kaleb Alfaro R.N. - 05/01/2025 4:27 AM CDT Problem: Risk for Compromised Skin Integrity-Derrick Mobility Score 1 or 2 Goal: Achieve optimal mobility to maintain or improve skin integrity. Outcome: Progressing Problem: Risk for Compromised Skin Integrity-Derrick Sensory Perception Score 1, 2, or 3 Goal: Manage sensory perception deficits to maintain and/or improve skin integrity. Outcome: Progressing Problem: Risk for Compromised Skin Integrity-Derrick Activity Score 1 or 2 Goal: Achieve optimal activity to maintain or improve skin integrity. Outcome: Progressing Shift Goals: Clinical Goals for the Shift: Patient remains safe during shift Identify possible barriers to meeting goals/advancing plan of care: End of Shift Summary: patient slept most of shift with no issues. Up x 2 to commode SBA with the pivot. Patient reports good pain control over night. * Janel Funk - 04/29/2025 5:29 PM CDT Shift Goals: Clinical Goals for the Shift: Patient will remain safe and free from falls during shift Identify possible barriers to meeting goals/advancing plan of care: Patient is 79 years young. Patient had left total knee arthroplasty on 04/27/2025. 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 End of Shift Summary: Patient remained free from falls or injury during this shift. Patient had lowblood pressures of 86/40 at 0736, 99/45 at 0737, 85/39 at 1140. Patient received a 500 ml bolus of Lactated Ringers at 1215. Blood pressures were then 81/40 at 1235, then 102/47 at 1332 and 128/56 [id number]. BP continued to fluctuate, and was 97/53 at 1648. Service is aware and patient is asymptomatic. Patient appears to be resting comfortably. Pain is being controlled with oxycodone, and the patient reports no side effects. Blood pressures will continue being closely monitored and trended. * Montez Torres M.D. - 04/28/2025 10:12 AM CDT Orthopaedic Surgery Plan of Care: Orthopedic surgery house was called to the bed of Cristina Broussard to discuss her current medications. One of her home medications includes Klonopin 1 mg. This was appropriately held by the primary service because of her age, and the chance that this has to increase her risk of falling. She was visibly upset with me regarding the fact that this medication has been held. She reports that she takes his medication 2-3 times per day, and it helps with her dystonia. She reports that she requires this medication to be able to walk. We discussed that this medication is quite risky given heradvanced age, and high risk of falling. She reported that she needs this medication to be able to function. Of an abundance of caution, I will allow her to have this medication with the 1 mg twice per day at a maximum. She was in agreement to this plan following our discussion. There were no barriers to communication. Montez Torres MD Orthopaedic Surgery PGY-2 documented in this encounter OR Notes * Op Note - Eduardo Bahena M.D. - 04/27/2025 7:59 AM CDT Pre-op Diagnosis Primary Osteoarthritis Knee Left Post-op Diagnosis Primary Osteoarthritis Knee Left Ruffler A heel sprayer first actively participated and was necessary for one or more of the following: opening, exposure and visualization, maintaining hemostasis, wound closure resulting in its safe and expeditious completion. Findings During the procedure, the following was observed: - Altered surgical field secondary to distorted anatomy These findings added significant complexity to the procedure because of time and complexity due to the patient's baseline dystonia in the fact that she needed a primary hinge due to her severe recurvatum and valgus deformity.. Complications None Operative Note Narrative PROCEDURE Left complex hinged cemented primary total knee arthroplasty. COMPLICATIONS None immediately apparent. Anesthesia was induced consisting of satisfactory single-shot adductor canal block, general anesthetic, local periarticular injection. The patient was placed in the supine position on the operating room table. All bony prominences were well padded. A surgical pause was conducted to identify and verify the appropriate patient, surgical site, surgical site marking, and that antibiotics had been administered prior to incision in accordance with our institution's guidelines. A straight midline anterior longitudinal incision was performed with the knee in flexion. Dissection was carried through the subcutaneous tissue to the level of the fascia. A standard medial parapatellar arthrotomy was performed. A mid- coronal plane release of the superficial and deep MCL was carried out off the proximal tibia. The anterior cruciate ligament was excised. A hole was drilled just anterior to the femoral origin of the posterior cruciate ligament, and an intramedullary guide donald was introduced with a distal femoral cutting guide set for 7 degrees of valgus. A distal femoral cut was then performed. An extramedullary alignment guide was used to cut the tibia perpendicular to its axis in the frontal plane and in line with bad [place] band tibial slope. The femur was sized and found to size best to a size extra-small. The 4-in-1 cutting block was then applied. Optimal implant rotation was identified, and anterior condylar cut were performed. Care was taken notto notch the anterior femur. Anterior and posterior chamfer cuts were performed. The tibia was sized and found to size best to a size 3. Alignment of the tibial cut was checked and found to be satisfactory. An intramedullary Jose was placed, and the medial and lateral menisci were excised. Trialcomponents were then placed, and a size 12-mm polyethylene insert was found to allow full extension, appropriate collateral ligament tension, appropriate flexion stability, and range of motion once the implants were linked together through the hinge mechanism. The overall limb alignment was checked, and the mechanical axis was found to fall through the center of the knee. The knee was taken through range of motion, and the patella was found to track centrally. The femoral component lug holes were drilled, and rotation of the tibial component was marked with the cautery. The femoral component was then removed, and final preparation of the tibia and femur commenced. After final preparation of the tibia, the bone surfaces were then prepared with the pulse lavage and dried meticulously. Three packs of cement mixed with 1.2 g of gentamicin were prepared on the backtable. The real femoral and tibial components were then cemented into place after cement restrictorwas placed at appropriate depth.. Excess methyl methacrylate cement was removed. A real 12-mm polyethylene insert was impacted into the tibial tray and the implants were linked together through the hinge mechanism. A local periarticular injection was injected in sequential fashion around the knee. The wound was thoroughly irrigated with normal saline using the pulse lavage. The fascia was closed with interrupted 0 Vicryl sutures. The subcutaneous tissue was closed with interrupted 2-0 Monocryl sutures, and the skin was closed with a running 3-0 subcuticular Monocryl suture and Dermabond. A dry sterile dressing was applied to the patient's leg, and the patient was transferred to the postanesthesia recoveryunit (PACU) in stable condition. There were no immediate complications. POSTOPERATIVE PLAN The patient will receive 24 hours of perioperative antibiotics with Ancef. VTE prophylaxis will consist of early mobilization, mechanical compressive devices, and twice daily aspirin therapy. The patient will be weight-bearing as tolerated. Eduardo Bahena M.D. documented in this encounter Miscellaneous Notes * Hospital Course - Colton Royal APRN, C.N.P., D.N.P. - 05/04/2025 11:22 AM CDT Surgery Information This Encounter Past Procedures (05/04/2024 to Today) Date Procedures Providers Loc / Dept 04/27/2025 COMPLEX PRIMARY LEFT TOTAL KNEE ARTHROPLASTY WITH HINGE CONSTRUCT Eduardo Bahena M.D.Zietz, Timothy J [facility].Juliette Manriquez M.D.Ray, Gabrielle S, M.D. Denisha FORDE OR Cristina Broussard was taken to the operative room by Eduardo Bahena M.D. for the procedurelisted above. The intraoperative as well as the immediate postoperative course were uncomplicated. For further details of the surgery please see the operative note. The patient was transferred from the PACU to the general care floor for continued observation and monitoring. She progressed in the usual post-operative fashion without complications. The patient was treated with perioperative IV antibiotics. She was given liquids by mouth and eventually advanced as tolerated towards a more general diet. Her pain was well controlled with oral pain medications. Physical therapy / Occupational therapy was consulted for assistance with mobilization and gait training. She was mobilizing without difficulty and was compliant with any activity restrictions. Her incision remained intact with no concerns. Her bowel and bladder function were acceptable. She then met criteria for discharge and was later dismissed from the hospital. For any further details please see the [facility] orthopedic surgery progress note and any other co-managing teams dated 05/04/2025. documented in this encounter Plan of Treatment Scheduled Orders Name Type Priority Associated Diagnoses Orde r Schedule US Lower Extremity Veins Left Imaging RAD - Routine (most inpatients and all outpatients) Secondary Osteoarthritis Knee Left Expected: 05/21/2025, Expires: 08/07/2026 documented as of this encounter Procedures Procedure Name Priority Date/Time Associated Diagnosis Comments US LOWER EXTREMITY VEINS LEFT RAD - Timed (for specific dates/times) 05/01/2025 9:17 AM CDT POCT NONINVASIVE HGB Routine 04/30/2025 7:21 AM CDT POCT NONINVASIVE HGB Routine 04/29/2025 7:24 AM CDT RENAL FUNCTION PANEL, S Routine 04/29/2025 6:55 AM CDT POCT NONINVASIVE HGB Routine 04/28/2025 4:33 AM CDT CBC WITH DIFFERENTIAL, B Routine 04/28/2025 2:41 AM CDT BASIC METABOLIC PANEL, S/P Routine 04/28/2025 2:41 AM CDT PULSE OXIMETRY WITH REMOTE OVERVIEW Routine 04/27/2025 11:03 AM CDT ADULT OXYGEN THERAPY Routine 04/27/2025 10:02 AM CDT DX KNEE LEFT 2 VIEWS RAD - Routine (most inpatients and all outpatients) 04/27/2025 9:58 AM CDT ARTHROPLASTY REPLACEMENT TOTAL KNEE 04/27/2025 6:53 AM CDT Primary Osteoarthritis Knee Left documented in this encounter Results * US Lower Extremity Veins Left (05/01/2025 9:17 AM CDT) Anatomical Region Laterality Modality Lower Extremity, Ultrasound RST LOS, Ultrasound ARZ LOS, Ultrasound FLA LOS Left Ultrasound Impressions 05/01/2025 9:36 AM CDT Mural thickening within the left upper femoral vein with suggestion of some associated echogenic material is favored to represent chronic postthrombotic change as opposed to subacute thrombus. Consider follow-up in 1-2 weeks to assess temporal evolution. Otherwise, negative for acute deep venous thrombosis. Narrative 05/01/2025 9:36 AM CDT EXAM: US LOWER EXTREMITY VEINS LEFT Exam performed with color and spectral Doppler analysis. COMPARISON: None. FINDINGS: LEFT: Common Femoral Vein: Negative. Profunda Femoral Vein: Negative. Femoral Vein: There is some mural thickening with suggestion of associated echogenic material along the wall of the left upper femoral vein, favored to represent chronic postthrombotic change as opposed to subacute thrombus. Popliteal Vein: Negative. Gastrocnemius Veins: Negative where seen. Soleal Veins: Negative where seen. Posterior Tibial Veins: Negative where seen. Peroneal Veins: Negative where seen. Great Saphenous Vein: Negative where seen. Small Saphenous Vein: Not evaluated. Popliteal Fossa: Negative. Other: n/a Information on venous thrombosis and management can be found on the [employer] site. Link [email or web address] Procedure Note Maurisio Merchant M.D. - 05/01/2025 EXAM: US LOWER EXTREMITY VEINS LEFT Exam performed with color and spectral Doppler analysis. COMPARISON: None. FINDINGS: LEFT: Common Femoral Vein: Negative. Profunda Femoral Vein: Negative. Femoral Vein: There is some mural thickening with suggestion of associatedechogenic material along the wall of the left upper femoral vein, favoredto represent chronic postthrombotic change as opposed to subacutethrombus. Popliteal Vein: Negative. Gastrocnemius Veins: Negative where seen. Soleal Veins: Negative where seen. Posterior Tibial Veins: Negative where seen. Peroneal Veins: Negative where seen. Great Saphenous Vein: Negative where seen. Small Saphenous Vein: Not evaluated. Popliteal Fossa: Negative. Other: n/a Information on venous thrombosis and management can be found on the[employer] site. [email or web address] IMPRESSION: Mural thickening within the left upper femoral vein with suggestion ofsome associated echogenic material is favored to represent chronicpostthrombotic change as opposed to subacute thrombus. Consider follow-upin 1-2 weeks to assess temporal evolution. Otherwise, negative for acutedeep venous thrombosis. Christiano Robles M.D. IMG US PROCEDURES Final R esult * (ABNORMAL) Noninvasive HGB, POCT (04/30/2025 7:21 AM CDT) [facility] Noninvasive HGB, POCT 11.2.(A) 11.6 - 15.0 g/dL Skin 04/30/2025 7:21 AM CDT Juliette Manriquez M.D. LAB POCT ORDERABLES-MANUA L Final Result * (ABNORMAL) Noninvasive HGB, POCT (04/29/2025 7:24 AM CDT) [facility] Noninvasive HGB, POCT 11.3(A) 11.6 - 15.0 g/dL Skin 04/29/2025 7:24 AM CDT Juliette Manriquez M.D. LAB POCT ORDERABLES-MANUA L Final Result * (ABNORMAL) Renal Function Panel (04/29/2025 6:55 AM CDT) [facility] Potassium, S 4.2 3.6 - 5.2 mmol/L 04/29/2025 7:43 AM CDT DTL Sodium, S 138 135 - 145 mmol/L 04/29/2025 7:43 AM CDT DTL Chloride, S 102 98 - 107 mmol/L 04/29/2025 7:43 AM CDT DTL Bicarbonate, S 26 22 - 29 mmol/L 04/29/2025 7:43 AM CDT DTL Anion Gap 10 7 - 15 04/29/2025 7:43 AM CDT DTL BUN (Blood Urea Nitrogen), S 20 6 - 21 mg/dL 04/29/2025 7:43 AM CDT DTL Creatinine 0.69 0.59 - 1.04 mg/dL 04/29/2025 7:43 AM CDT DTL Estimated GFR (eGFR) 88 >=60 mL/min/BSA 04/29/2025 7:43 AM CDT DTL Comment: Estimated GFR calculated using the 2020 CKD_EPI creatinine equation. Calcium, Total, S 8.5(L) 8.8 - 10.2 mg/dL 04/29/2025 7:43 AM CDT DTL Glucose, S 86 70 - 140 mg/dL 04/29/2025 7:43 AM CDT DTL Albumin, S 3.8 3.5 - 5.0 g/dL 04/29/2025 7:43 AM CDT DTL Phosphorus (Inorganic), S 2.5 2.5 - 4.5 mg/dL 04/29/2025 7:43 AM CDT DTL Blood (Blood, Venous) 04/29/2025 6:55 AM CDT 04/29/2025 7:24 AM CDT Eduardo Bahena M.D. LAB BLOOD ADD-ON Final Resul t [facility] [address] [place] [address], [facility] [place]note 2[facility] [address] [place] [address] * (ABNORMAL) Noninvasive HGB, POCT (04/28/2025 4:33 AM CDT) Noninvasive HGB, POCT 11(A) 11.6 - 15.0 g/dL Skin 04/28/2025 4:33 AM CDT Juliette Manriquez M.D. LAB POCT ORDERABLES-THIEN Glover Edited Result - Final * (ABNORMAL) Basic Metabolic Panel (04/28/2025 2:41 AM CDT) [facility] Potassium, S 4.6 3.6 - 5.2 mmol/L 04/28/2025 3:49 AM CDT DTL Sodium, S 130(L) 135 - 145 mmol/L 04/28/2025 3:49 AM CDT DTL Chloride, S 97(L) 98 - 107 mmol/L 04/28/2025 3:49 AM CDT DTL Bicarbonate, S 23 22 - 29 mmol/L 04/28/2025 3:49 AM CDT DTL Anion Gap 10 7 - 15 04/28/2025 3:49 AM CDT DTL BUN (Blood Urea Nitrogen), S 24(H) 6 - 21 mg/dL 04/28/2025 3:49 AM CDT DTL Creatinine 0.72 0.59 - 1.04 mg/dL 04/28/2025 3:49 AM CDT DTL Estimated GFR (eGFR) 84 >=60 mL/min/BSA 04/28/2025 3:49 AM CDT DTL Comment: Estimated GFR calculated using the 2020 CKD_EPI creatinine equation. Calcium, Total, S 8.6(L) 8.8 - 10.2 mg/dL 04/28/2025 3:49 AM CDT DTL Glucose, S 138 70 - 140 mg/dL 04/28/2025 3:49 AM CDT DTL Blood (Blood, Venous) 04/28/2025 2:41 AM CDT 04/28/2025 3:11 AM CDT Juliette Manriquez M.D. LAB BLOOD ADD-ON Final Re sult [facility] [address] [place] [address], [facility] DTL [facility] [address] [place] [address] * (ABNORMAL) CBC with Differential, Blood (04/28/2025 2:41 AM CDT) [facility] Hemoglobin 10.3(L) 11.6 - 15.0 g/dL 04/28/2025 3:22 AM CDT DTL Hematocrit 29.7(L) 35.5 - 44.9 % 04/28/2025 3:22 AM CDT DTL Erythrocytes 3.18(L) 3.92 - 5.13 x10(12)/L 04/28/2025 3:22 AM CDT DTL MCV 93.4 78.2 - 97.9 fL 04/28/2025 3:22 AM CDT DTL RBC Distrib Width 13.7 12.2 - 16.1 % 04/28/2025 3:22 AM CDT DTL Platelet Count 162 157 - 371 x10(9)/L 04/28/2025 3:22 AM CDT DTL Leukocytes 15.0(H) 3.4 - 9.6 x10(9)/L 04/28/2025 3:22 AM CDT DTL Neutrophils 13.01(H) 1.56 - 6.45 x10(9)/L 04/28/2025 3:21 AM CDT DHPM Lymphocytes 0.93(L) 0.95 - 3.07 x10(9)/L 04/28/2025 3:22 AM CDT DTL Monocytes 1.00(H) 0.26 - 0.81 x10(9)/L 04/28/2025 3:22 AM CDT DTL Eosinophils <0.03 0.03 - 0.48 x10(9)/L 04/28/2025 3:22 AM CDT DTL Basophils <0.03 0.01 - 0.08 x10(9)/L 04/28/2025 3:22 AM CDT DTL Blood (Blood, Venous) 04/28/2025 2:41 AM CDT 04/28/2025 3:12 AM CDT us Juliette Manriquez M.D. LAB BLOOD ADD-ON Final Re sult [facility] [address] [place] [address], [facility] [place]note 2] [address] [place] [address] [facility] [address] [place] [address] * DX Knee Left 2 Views (04/27/2025 9:58 AM CDT) Anatomical Region Laterality Modality Lower Extremity, Knee, Muscu loskeletal RST LOS, Musculoskeletal ARZ LOS, Muskuloskeletal FLA LOS Left Digit al Radiography Impressions 04/27/2025 10:05 AM CDT Left TKA. Negative for postoperative purposes. Narrative 04/27/2025 10:05 AM CDT EXAM: DX KNEE LEFT 2 VIEWS Procedure Note Anthony Miller M.D. - 04/27/2025 EXAM: DX KNEE LEFT 2 VIEWS IMPRESSION: Left TKA. Negative for postoperative purposes. Maurisio Samuel M.D. IMG DIAGNOSTIC IMAGING PRO CEDURES Final Result documented in this encounter Visit Diagnoses Diagnosis Primary Osteoarthritis Knee Left- Primary Decline Functional Status [R53.81] Dysphagia [R13.10] Secondary Osteoarthritis Knee Left Abnormal Gait Non Orthopedic Spasticity Hemiplegia Spastic Nondominant Side Left (HCC) documented in this encounter Admitting Diagnoses Diagnosis Primary Osteoarthritis Knee Left documented in this encounter Administered Medications Inactive Administered Medications - up to 3 most recent administrations Medication Order MAR Action Action Date Dose Rate Site acetaminophen tablet 1,000 mg (TylenoL) 1,000 mg, oral, Every 6 hours, First dose on Wed04/27/25 at 1300 Given 05/04/2025 9:28 AM CDT 1,000 mg Given 05/04/2025 4:14 AM CDT 1,000 mg Given 05/03/2025 8:34 PM CDT 1,000 mg acetaminophen tablet 1,000 mg (TylenoL) 1,000 mg, oral, Once, On Wed04/27/25 at 0700, For 1 dose, Pre-Op Given 04/27/2025 7:08 AM CDT 1,000 mg apixaban tablet 2.5 mg (Eliquis) 2.5 mg, oral, 2 times daily, First dose on Wed04/27/25 at 2100 Given 05/04/2025 9:28 AM CDT 2.5 mg Given 05/03/2025 8:35 PM CDT 2.5 mg Given 05/03/2025 8:10 AM CDT 2.5 mg artificial tears (hypromellose) 0.3 % ophthalmic gel 1 drop 1 drop, both eyes, 4 times daily PRN, dry eyes, Starting on Wed04/27/25 at 1352 benzocaine-menthoL 15-3.6 mg per lozenge 1 lozenge (CepacoL) 1 lozenge, oral, As needed, sore throat, Starting on Wed04/27/25 at 1251 bisacodyL suppository 10 mg (Dulcolax) 10 mg, rectal, Daily PRN, constipation, Starting on Wed04/29/25 at 2123 calcium carbonate chewable tablet 400 mg of calcium (Tums) 400 mg of calcium, oral, Every 2 hour PRN, indigestion, Starting on Wed04/27/25 at 1251, Doses listed are in mg of elemental calcium. Take with food. 500 mg calcium carbonate contains 200 mg of elemental calcium. carboxymethylcellulose 0.5 % ophthalmic solution 2 drop (Refresh Plus) 2 drop, both eyes, 4 times daily PRN, dry eyes, Starting on Wed04/27/25 at 1251 ceFAZolin injection 2 g (Ancef) 2 g, intravenous, Every 8 hours, First dose on Wed04/27/25 at 1500, For 2 doses, Start within 8 hours of last IV dose. For immediate IV push administration, reconstitute vial per IVAG or package insert instructions. See IVAG for administration guidelines., Drug Monitoring Program: Pharmacist to adjust medication dosing based on indication and drug clearance factors., Indications: Prophylaxis, surgicalIndications:Prophylaxis, surgical Given 04/27/2025 10:33 PM CDT 2 g Given 04/27/2025 3:53 PM CDT 2 g celecoxib capsule 200 mg (CeleBREX) 200 mg, oral, Daily, First dose on Wed04/28/25 at 0900, Hold for GFR <50ml/min/BSA, renal transplant, solitary kidney etc Given 05/04/2025 9:28 AM CDT 200 mg Given 05/03/2025 8:10 AM CDT 200 mg Given 05/02/2025 9:05 AM CDT 200 mg clonazePAM tablet 0.5 mg (KlonoPIN) 0.5 mg, oral, 2 times daily, First dose (after last modification) on Wed04/28/25 at 1030 Given 05/04/2025 9:28 AM CDT 0.5 mg Given 05/03/2025 8:35 PM CDT 0.5 mg Given 05/03/2025 8:10 AM CDT 0.5 mg fentaNYL injection 25 mcg (Sublimaze) 25 mcg, intravenous, Every 2 min PRN, For pain 4 or greater (maximum 100 mcg). If max dose of Fentanyl is reached and if pain is greater than 4, discontinue Fentanyl: give Hydromorphone, Starting on Wed04/27/25 at 1002, PACU (only) Given 04/27/2025 10:29 AM CDT 25 mcg Given 04/27/2025 10:27 AM CDT 25 mcg HYDROmorphone (PF) injection 0.2 mg (Dilaudid) 0.2 mg, intravenous, Every 2 hour PRN, severe pain or score 7-10 of 10, Starting on Wed04/27/25 at 1251, For 2 doses, May administer if pain is greater than 7 after scheduled and PRN regimen exhausted. If pain remains greater than 7, notify primary service. ketamine injection 10 mg (Ketalar) 10 mg, intravenous, Once as needed, Refractory moderate pain or score 4-6 of 10, Refractory severe pain score 7-10 of 10 after fentanyl or hydromorphone administration, Pain sedation mismatch AND RASS less than -1, Starting on Wed04/27/25 at 1002, For 1 dose, PACU (only) Given 04/27/2025 10:36 AM CDT 10 mg ketorolac injection 7.5 mg (ToradoL) 7.5 mg, intravenous, Every 6 hours, First dose on Wed04/27/25 at 1600, For 3 doses, If patient received PACU dose - discontinue after 2 doses. Hold for GFR <50ml/min/BSA, renal transplant, solitary kidney etc Adult IV push rate: Over 15 seconds. Peds IV push rate: Over 1 minute. Doses > 15 mg IV/IM are discouraged due to lack of additional analgesic benefit. Given 04/28/2025 3:11 AM CDT 7.5 mg Given 04/27/2025 10:33 PM CDT 7.5 mg Given 04/27/2025 3:53 PM CDT 7.5 mg ketotifen 0.025 % (0.035 %) ophthalmic solution 1 drop (Zaditor) 1 drop, both eyes, 2 times daily PRN, itchy eyes/allergies, Starting on Wed04/27/25 at 1351 Given 05/03/2025 8:11 AM CDT 1 drop Given 04/29/2025 8:19 AM CDT 1 drop Given 04/28/2025 8:12 AM CDT 1 drop Lactated Ringer's bolus 500 mL 500 mL, intravenous, at 500 mL/hr, Administer over 1 Hours, Once, On Wed04/29/25 at 1215, For 1 dose New Bag 04/29/2025 11:49 AM CDT 500 mL 500 mL/hr Lactated Ringer's 50 mL/hr, intravenous, Continuous, Starting on Wed04/27/25 at 1315, Until patient is tolerating 500 cc PO intake New Bag 04/28/2025 6:41 PM CDT 50 mL/hr 50 mL/hr Rate/Dose Verify 04/28/2025 7:00 AM CDT 50 mL/hr 50 mL/h r Rate/Dose Verify 04/28/2025 3:00 AM CDT 20 mL/hr 20 mL/h r Lactated Ringer's 20 mL/hr, intravenous, Continuous, Starting on Wed04/27/25 at 0945, PACU & Post-Op Continued from OR 04/27/2025 10:00 AM CDT 20 mL/hr 20 mL/hr levothyroxine tablet 75 mcg 75 mcg, oral, Daily before morning meal, First dose on Wed04/28/25 at 0700 Given 05/04/2025 6:48 AM CDT 75 mcg Given 05/03/2025 5:31 AM CDT 75 mcg Given 05/02/2025 5:34 AM CDT 75 mcg loratadine tablet 10 mg (Claritin) 10 mg, oral, Daily PRN, allergies, for opioid induced pruritus, Starting on Wed04/27/25 at 1251, Drug Monitoring Program: Pharmacist to adjust medication dosing based on indication and drug clearance factors. melatonin tablet 3 mg 3 mg, oral, Daily at bedtime, First dose (after last modification) on Wed05/02/25 at 0045 Given 05/03/2025 8:35 PM CDT 3 mg Given 05/02/2025 8:27 PM CDT 3 mg Given 05/02/2025 12:32 AM CDT 3 mg naloxone injection 0.2 mg (Narcan) 0.2 mg, intravenous, As needed, respiratory depression, Starting on Wed04/27/25 at 1251, For RASS Score -4 or less, respiratory rate of less than 8 breaths/min. Notify provider/service and rapid response team (if available at institution). oxyCODONE IR tablet 10 mg (Roxicodone) 10 mg, oral, Every 4 hours PRN, severe pain or score 7-10 of 10, Starting on Wed04/27/25 at 1251, Second line therapy. If patient is greater than 7 after 2 hours, call service for new order. May administer lower pain scale value dose of prescribed medication based on patient request Given 05/04/2025 9:38 AM CDT 10 mg Given 05/04/2025 1:03 AM CDT 10 mg Given 05/02/2025 8:32 PM CDT 10 mg oxyCODONE IR tablet 10 mg (Roxicodone) 10 mg, oral, Once as needed, 5 mg for pain 4 or less; 10 mg for 5 or greater, Starting on Wed04/27/25 at 1002, For 1 dose, PACU (only) Given 04/27/2025 10:2 5 AM CDT 10 mg oxyCODONE IR tablet 5 mg (Roxicodone) 5 mg, oral, Every 4 hours PRN, moderate pain or score 4-6 of 10, Starting on Wed04/27/25 at 1251, Second line therapy Given 05/03/2025 7:23 PM CDT 5 mg Given 05/03/2025 4:24 PM CDT 5 mg Given 05/03/2025 10:30 AM CDT 5 mg polyethylene glycol powder packet 17 g (Miralax) 17 g, oral, Daily, First dose on Wed04/29/25 at 0900, Dissolve in 240 mLs (8 ounces) of water prior to giving. Avoid mixing with starch-based thickened liquids. Given 05/03/2025 8:11 AM CDT 17 g Given 05/01/2025 8:16 AM CDT 17 g Given 04/30/2025 9:08 AM CDT 17 g sennosides-docusate sodium 8.6-50 mg per tablet 1 tablet (Senokot-S) 1 tablet, oral, 2 times daily, First dose on Wed04/27/25 at 2100, Do not give if patient has diarrhea. Given 05/04/2025 9:29 AM CDT 1 tablet Given 05/03/2025 8:34 PM CDT 1 tablet Given 05/03/2025 8:10 AM CDT 1 tablet tolterodine tablet 2 mg (DetroL) 2 mg, oral, 2 times daily, First dose on Wed04/27/25 at 2100, Drug Monitoring Program: Pharmacist to adjust medication dosing based on indication and drug clearance factors. Given 05/04/2025 9:28 AM CDT 2 mg Given 05/03/2025 9:20 PM CDT 2 mg Given 05/03/2025 8:11 AM CDT 2 mg tranexamic acid tablet 1,950 mg (Lysteda) 1,950 mg, oral, Daily, First dose on Wed05/01/25 at 1215, For 7 days, Daily for 7 days , Restriction Criteria (Pharmacy will review and approve if criteria met): Meets restriction criteria Given 05/04/2025 9:28 AM CDT 1,950 mg Given 05/03/2025 8:10 AM CDT 1,950 mg Given 05/02/2025 9:04 AM CDT 1,950 mg valACYclovir tablet 500 mg (Valtrex) 500 mg, oral, Daily, First dose on Wed04/28/25 at 0900, Drug Monitoring Program: Pharmacist to adjust medication dosing based on indication and drug clearance factors., Indications: Prophylaxis, medicalIndications:Prophylaxis, medical Given 05/04/2025 9:29 AM CDT 500 mg Given 05/03/2025 8:10 AM CDT 500 mg Given 05/02/2025 9:05 AM CDT 500 mg documented in this encounter Active and Recently Administered Medications Times are shown in CDT. Scheduled Medication Order 05/02/2025 05/03/2025 05/04/2025 acetaminophen tablet 1,000 mg (TylenoL) 1,000 mg, oral, Every 6 hours, First dose on Wed04/27/25 at 1300 0311 (Given - Provider: Jess LynnNGeorgia)0904 (Given - Provider: Elizabeth Centeno R.N.)1425 (Given - Provider: Elizabeth Centeno R.N.)2025 (Given - Provider: Kelly Jones R.N.) 0214 (Given - Provider: Aydee Calvo RGeorgiaNGeorgia)0810 (Given - Provider: Janel Funk)1415 (Given - Provider: Janel Funk)2033 (Given - Provider: Kelly Jones R.N.) 0414 (Given - Provider: Jess CoffeyNGeorgia)0928 (Given - Provider: Malaika Wetzel R.N.) apixaban tablet 2.5 mg (Eliquis) 2.5 mg, oral, 2 times daily, First dose on Wed04/27/25 at 2100 0905 (Given - Provider: Elizabeth Centeno R.N.)2026 (Given - Provider: Kelly Jones R.N.) 0810 (Given - Provider: Janel Funk)2034 (Given - Provider: Kelly Jones R.N.) 0928 (Given - Provider: Malaika Wetzel R.N.) celecoxib capsule 200 mg (CeleBREX) 200 mg, oral, Daily, First dose on 04/28/25 at 0900, Hold for GFR <50ml/min/BSA, renal transplant, solitary kidney etc 0905 (Given - Provider: Elizabeth Centeno R.N.) 0810 (Given - Provider: Janel Funk) 0928 (Given - Provider: Malaika Wetzel R.N.) clonazePAM tablet 0.5 mg (KlonoPIN) 0.5 mg, oral, 2 times daily, First dose (after last modification) on 04/28/25 at 1030 0905 (Given - Provider: Elizabeth Centeno R.N.)2026 (Given - Provider: Kelly Jones R.N.) 0810 (Given - Provider: Janel Funk)2034 (Given - Provider: Kelly Jones R.N.) 0928 (Given - Provider: Malaika L Kapaska, R.N.) levothyroxine tablet 75 mcg 75 mcg, oral, Daily before morning meal, First dose on Wed04/28/25 at 0700 0534 (Given - Provider: Leanne Dietrich R.N.) 0531 (Given - Provider: Aydee Calvo R.N.) 0648 (Given - Provider: Jess CoffeyNGeorgia) melatonin tablet 3 mg 3 mg, oral, Daily at bedtime, First dose (after last modification) on Wed05/02/25 at 0045 0032 (Given - Provider: Leanne Dietrich R.N.)2026 (Given - Provider: Kelly Jones R.N.) 2034 (Given - Provider: Kelly Jones R.N.) polyethylene glycol powder packet 17 g (Miralax) 17 g, oral, Daily, First dose on Wed04/29/25 at 0900, Dissolve in 240 mLs (8 ounces) of water prior to giving. Avoid mixing with starch-based thickened liquids. 0910 (Not Given - Provider: Elizabeth Centeno R.N. - Reason: Patient/family refused) 08 (Given - Provider: Janel Funk) 09 (Not Given - Provider: Malaika Wetzel R.N. - Reason: Patient/family refused - Comment: Patient states she just had a bowel movement last night and does not want) sennosides-docusate sodium 8.6-50 mg per tablet 1 tablet (Senokot-S) 1 tablet, oral, 2 times daily, First dose on Wed04/27/25 at 2100, Do not give if patient has diarrhea. 0904 (Given - Provider: Elizabeth Centeno R.N.)2026 (Given - Provider: Kelly Jones R.N.) 08 (Given - Provider: Janel Funk)2033 (Given - Provider: Kelly Jones R.N.) 0929 (Given - Provider: Malaika Wetzel R.N.) tolterodine tablet 2 mg (DetroL) 2 mg, oral, 2 times daily, First dose on Wed04/27/25 at 2100, Drug Monitoring Program: Pharmacist to adjust medication dosing based on indication and drug clearance factors. 0904 (Given - Provider: Elizabeth Centeno R.N.)2026 (Given - Provider: Kelly Jones R.N.) 08 (Given - Provider: Janel Funk)2119 (Given - Provider: Kelly Jones R.N.) 09 (Given - Provider: Malaika Wetzel R.N.) tranexamic acid tablet 1,950 mg (Lysteda) 1,950 mg, oral, Daily, First dose on Wed05/01/25 at 1215, For 7 days, Daily for 7 days , Restriction Criteria (Pharmacy will review and approve if criteria met): Meets restriction criteria 0904 (Given - Provider: Elizabeth Centeno R.N.) 08 (Given - Provider: Janel Funk) 09 (Given - Provider: Malaika Wetzel R.N.) valACYclovir tablet 500 mg (Valtrex) 500 mg, oral, Daily, First dose on Wed04/28/25 at 0900, Drug Monitoring Program: Pharmacist to adjust medication dosing based on indication and drug clearance factors., Indications: Prophylaxis, medical 09 (Given - Provider: Elizabeth Centeno R.N.) 08 (Given - Provider: Janel Funk) 09 (Given - Provider: Malaika Wetzel R.N.) PRN Medication Order 05/02/2025 05/03/2025 05/04/2025 artificial tears (hypromellose) 0.3 % ophthalmic gel 1 drop 1 drop, both eyes, 4 times daily PRN, dry eyes, Starting on Wed04/27/25 at 1352 baclofen tablet 10 mg (LioresaL) 10 mg, oral, 2 times daily PRN, muscle spasms, Starting on Wed04/27/25 at 1256 benzocaine-menthoL 15-3.6 mg per lozenge 1 lozenge (CepacoL) 1 lozenge, oral, As needed, sore throat, Starting on Wed04/27/25 at 1251 bisacodyL suppository 10 mg (Dulcolax) 10 mg, rectal, Daily PRN, constipation, Starting on Wed04/29/25 at 2123 calcium carbonate chewable tablet 400 mg of calcium (Tums) 400 mg of calcium, oral, Every 2 hour PRN, indigestion, Starting on Wed04/27/25 at 1251, Doses listed are in mg of elemental calcium. Take with food. 500 mg calcium carbonate contains 200 mg of elemental calcium. carboxymethylcellulose 0.5 % ophthalmic solution 2 drop (Refresh Plus) 2 drop, both eyes, 4 times daily PRN, dry eyes, Starting on Wed04/27/25 at 1251 HYDROmorphone (PF) injection 0.2 mg (Dilaudid) 0.2 mg, intravenous, Every 2 hour PRN, severe pain or score 7-10 of 10, Starting on Wed04/27/25 at 1251, For 2 doses, May administer if pain is greater than 7 after scheduled and PRN regimen exhausted. If pain remains greater than 7, notify primary service. ketotifen 0.025 % (0.035 %) ophthalmic solution 1 drop (Zaditor) 1 drop, both eyes, 2 times daily PRN, itchy eyes/allergies, Starting on Wed04/27/25 at 1351 0811 (Given - Provider: Janel Funk) loratadine tablet 10 mg (Claritin) 10 mg, oral, Daily PRN, allergies, for opioid induced pruritus, Starting on Wed04/27/25 at 1251, Drug Monitoring Program: Pharmacist to adjust medication dosing based on indication and drug clearance factors. naloxone injection 0.2 mg (Narcan) 0.2 mg, intravenous, As needed, respiratory depression, Starting on Wed04/27/25 at 1251, For RASS Score -4 or less, respiratory rate of less than 8 breaths/min. Notify provider/service and rapid response team (if available at institution). oxyCODONE IR tablet 10 mg (Roxicodone)(Linked Group 1) 10 mg, oral, Every 4 hours PRN, severe pain or score 7-10 of 10, Starting on Wed04/27/25 at 1251, Second line therapy. If patient is greater than 7 after 2 hours, call service for new order. May administer lower pain scale value dose of prescribed medication based on patient request 0311 (Given - Provider: Rita Rain R.N.)0971 (Given - Provider: Elizabeth Centeno R.N.)1621 (Given - Provider: Kelly Jones RGeorgiaN.)2031 (Given - Provider: Kelly Jones R.N.) 1030 (See Alternative - Provider: Janel Funk)1624 (See Alternative - Provider: Janel Funk)192 (See Alternative - Provider: Janel Funk) 0103 (Given - Provider: Charlene Pratt R.N.)0938 (Given - Provider: Malaika Wetzel R.N.) oxyCODONE IR tablet 5 mg (Roxicodone)(Linked Group 1) 5 mg, oral, Every 4 hours PRN, moderate pain or score 4-6 of 10, Starting on Wed04/27/25 at 1251, Second line therapy 0311 (See Alternative - Provider: Rita Rain R.N.)0910 (See Alternative - Provider: Elizabeth Centeno R.N.)1626 (See Alternative - Provider: Kelly Jones R.N.)2031 (See Alternative - Provider: Jess SowNGeorgia) 1030 (Given - Provider: Janel Funk)1624 (Given - Provider: Janel Funk)1923 (Given - Provider: Janel Funk) 0103 (See Alternative - Provider: Charlene Pratt R.N.)0938 (See Alternative - Provider: Malaika Wetzel R.N.) Linked Groups Order Group 1: oxyCODONE IR tablet 5 mg (Roxicodone)Jump to med 5 mg, oral, Every 4 hours PRN, moderate pain or score 4-6 of 10, Starting on Wed04/27/25 at 1251, Second line therapy Or oxyCODONE IR tablet 10 mg (Roxicodone)Jump to med 10 mg, oral, Every 4 hours PRN, severe pain or score 7-10 of 10, Starting on Wed04/27/25 at 1251, Second line therapy. If patient is greater than 7 after 2 hours, call service for new order. 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
--- OUTSIDE RECORDS SUMMARY | 2025-05-01 10:40 | XMS_ITS | Encounter Summary ---
Author Organization [facility] Address [address] [place] [id number] Care Team Providers Care Pickle Pumper Name Role Phone Elsewhere, Pcp Primary Care Provider Unavailabl e Encounter Details Date Type Department Care Team (Late st Contact Info) Description 05/01/2025 11:40 AM CDT Ancillary Procedure Department of Orthopedic Surgery Social History Tobacco Use Types Packs/Day Years [...] things needed for daily living? 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 The clinical documentation to support these images can be found on the encounter that produced images. 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
--- OUTSIDE RECORDS SUMMARY | 2025-06-14 18:36 | XMS_ITS ---
Author Organization [facility] Care Team Providers Care Paraplanner Name Role Phone Dona Gaxiola Unavailable Unavailable Samara Alba Unavailable Unavailable Caio Loza Unavailable Unavailable Allergies and adverse reactions Code CodeSystem Substance Reaction Severity StartDate Concern Status 43191 RXNORM buPROPion Restlessness an d agitation (code- 842132179, SNOMED CT) Severe Unknown active 2001 RXNORM carBAMazepine Eruption (code - 988986885, SNOMED CT); Dyspnea (code- 015152101, SNOMED CT) Severe Unknown active 14422 RXNORM DULoxetine Bilateral feet edema (code- 553923907, SNOMED CT) Severe Unknown active 629158 RXNORM Escitalopram Unknown Unknown active 8134 RXNORM PHENobarbital Eruption (code - 690536926, SNOMED CT); Dyspnea (code- 283071023, SNOMED CT) Severe Unknown active 8183 RXNORM Phenytoin Eruption (code- 931034195, SNOMED CT); Dyspnea (code- 563625928, SNOMED CT) Severe Unknown active Care Team Name Role Address Phone Organization Dates Caio Loza PCP [facility] [address] [place] [address], [address], [place], [address], [facility] (Office): [facility] 05/04/2025 - 05/24/2025 Dona Gaxiola [facility], [facility] 05/04/2025 - 05/24/2025 Samara Alba [facility] [address] [facility] [address], [place], [place], [facility], [facility] (Office): : [facility] 05/04/2025 - 05/24/2025 Encounters Encounter Type Code Code System Description Performer Discharge Disposition Service Delivery Location Date Ambulatory Encounter CPT Code = [id number] Osteoarthritis of knee Елена Desir [facility] Address: [address] [place] [address]. 05/04 Ambulatory Encounter CPT Code = [id number] Admission by orthopedic surgeon Елена Desir [facility] Address: [address] [place] [address], [address] [place] [address]. 05/04 Ambulatory Encounter CPT Code = [id number] Dysphagia Елена Desir [facility] Address: [address] [place] [address], [address] [place] [address]. 05/04 Ambulatory Encounter CPT Code = [id number] Malaise Елена Desir [facility] Address: [address] [place] [address], [address] [place] [address]. 05/04 Ambulatory Encounter CPT Code = [id number] Prosthetic arthroplasty of knee joint Елена Desir [facility] Address: [address] [place] [address], [address] [place] [address]. 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 05/04 Ambulatory Encounter CPT Code = [id number] Spasm Елена Desir [facility] Address: [address] [place] [address]. 05/04 Ambulatory Encounter CPT Code = [id number] Spastic hemiplegia of nondominant side Елена Desir [facility] Address: [address] [place] [address]. 05/04 Ambulatory Encounter CPT Code = [id number] Pain Елена Desir [facility] Address: [address] [place] [address]. 05/04 Ambulatory Encounter CPT Code = [id number] Drug-induced constipation Елена Desir [facility] Address: [address] [place] [address]. 05/04 Ambulatory Encounter CPT Code = [id number] Nausea Елена Desir [facility] Address: [address] [place] [address]. 05/04 Ambulatory Encounter CPT Code = [id number] Anemia Елена Desir [facility] Address: [address] [place] [address]. 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 05/04 Ambulatory Encounter CPT Code = [id number] Hypothyroidism Елена Desir [facility] Address: [address] [place] [address]. 05/04 Ambulatory Encounter CPT Code = [id number] Overactive urinary bladder Елена Desir [facility] Address: [address] [place] [address]. 05/04 Goals Section Goals Description Status Target Date I will be able to express my needs Active 05/24/2025 I will be able to hear and r vianca when spoken to Active 05/24/2025 I will be free from discomfo rt or adverse reactions related to anti-anxiety therapy through the review date. Active 05/24/20 I will be free from discomfo rt or adverse reactions related to anticoagulant use through the review date. Active 05/24/2025 I will be free of falls through the review date. Active 05/24/2025 I will continue to be alert and oriented x 3 Active 05/24/2025 I will continue to not have any oral/dental problems through review date. Active 05/24/2025 I will continue to safely us e my recliner chair without the lift function Active 05/24/2025 I will demonstrate the appro priate use of adaptive devices to increase mobility through the review date. Active 05/24/2025 I will have no complications through the review date. Active 05/24/2025 I will improve current level of function through the review date. Active 05/24/2025 I will not leave the facility independently. Act soren 05/24/2025 I will remain continent of bowel Active 05/24/2025 I will remain free from skin breakdown due to incontinence and brief use through the review date. Active 05/24/2025 I will verbalize adequate re lief of pain or ability to cope with incompletely relieved pain through the review date. Active My Advance Directive prefere nces will be honored Active 05/24/2025 Resident Intake of Nutrients Will Meet Metabolic Needs Active 05/24/2025 Resident will continue to re ad a t level of regular print Active 05/24/2025 Functional Status Functional Condition Code Code System Date Dependence on Cane [id number] SNOMED CT Code Name Recorded Time Value Entered By Ambulation 05/16/2025 Limited Assistance [email or web address] [email or web address] g Ambulation 05/16/2025 Limited Assistance Amita [email or web address] g Chair/xth-mp-cfskw transfer 05/24/2025 Independent [email or web address] rg Does the resident use a wheelchair and/or scooter? 05/24/2025 Not assessed Jody @[email or web address] rg Dressing 05/16/2025 Limited Assistance Antonella.Ron [email or web address] g Eating 05/24/2025 Setup or clean-u p assistance Paris.[email or web address] rg Indicate the type of wheelchair or scooter used 05/24/2025 Not assessed Paris.Odenthal @[email or web address].o rg Indicate the type of wheelchair or scooter used 05/24/2025 Not assessed [place].Odenthal @[email or web address].o rg Lower body dressing 05/24/2025 Independent [place].Ode [email or web address] rg Lying to sitting on side of bed 05/24/2025 Independent Paris.[email or web address]@[email or web address] rg Oral hygiene 05/24/2025 Independent [place].Odenthal@[facility].o rg Personal hygiene 05/24/2025 Independent Paris.Odenth [email or web address] rg Picking up object 05/24/2025 Independent [place].Odent [email or web address] rg Putting on/taking off footwear 05/24/2025 Independent Paris.[email or web address] rg Roll left and right 05/24/2025 Independent [place].Ode nthal@[email or web address] rg Shower/bathe self 05/24/2025 Not assessed Paris.Odent [email or web address] rg Sit to lying 05/24/2025 Independent [place].Odenthal@[facility].o rg Sit to stand 05/24/2025 Independent [place].Odenthal@[facility].o rg Toilet transfer 05/24/2025 Independent [place].Odentha [email or web address] rg Toileting 05/16/2025 Limited Assistance Antonella.Ron [email or web address] g Toileting hygiene 05/24/2025 Independent [place].Odent [email or web address] rg Transferring 05/16/2025 Limited Assistance Amita [email or web address] g Upper body dressing 05/24/2025 Independent [place].Ode nthal@[email or web address] rg Walk 10 feet 05/24/2025 Independent [place].Odenthal@[facility].o rg Walk 150 feet 05/24/2025 Supervision or t ouching assistance Paris.[email or web address] rg Walk 50 feet 05/24/2025 Supervision or cyndi baldwin assistance [email or web address]. rg Wheel 150 feet 05/24/2025 Not assessed Jody @[facility]. rg Wheel 50 feet with two turns 05/24/2025 Not assessed Jody@[email or web address]. rg Immunizations Immunization Status Vaccine Details Vaccine Code CodeSystem Date Notes TB 2 Step Mantoux Skin Test completed tuberculin skin test; unspecified formulation lotNumber: [id number] expiry: 09/02/2027 Mfg: [employer] Given 0.1 ml Right Forearm intradermally Step 2 of Multi-step 98 CVX created date: 05/11/2025 consent date: 05/22/2025 administer ed date: 05/22/2025 Educated by on 05/22/2025 TB 2 Step Mantoux Skin Test completed tuberculin skin test; unspecified formulation lotNumber: [id number] expiry: 09/02/2027 Mfg: sonifi Given 0.1 ml Right Forearm intradermally Step 1 of Multi-step with next step required 98 CVX created date: 05/08/2025 consent date: 05/08/2025 administer ed date: 05/08/2025 Influenza Seasonal 0.5mL completed Influenza, adjuvanted, inactivated, quadrivalent, injectable, preservative free 205 CVX created date: 05/04/2025 administer ed date: 04/20/2025 Shingles (unspecified) completed zoster vaccine, unspecified formulation 188 CVX created date: 05/04/2025 administer ed date: 10/18/2018 Shingles (unspecified) completed zoster vaccine, unspecified formulation 188 CVX created date: 05/04/2025 administer ed date: 01/17/2018 Pneumococcal PPSV23 completed pneumococcal polysaccharide vaccine, 23 valent 33 CVX created date: 05/04/2025 administer ed date: 01/17/2018 Tdap (Tetanus Diphtheria Pertussis) completed tetanus toxoid, reduced diphtheria toxoid, and acellular pertussis vaccine, adsorbed 115 CVX created date: 05/04/2025 administer ed date: 06/10/2021 COVID-19 Moderna completed SARS-COV-2 (COVID-19) vaccine, mRNA, spike protein, LNP, preservative free, 25 mcg/0.25 mL dose 311 CVX created date: 05/04/2025 administer ed date: 04/20/2025 [facility]I-[facility] completed Respiratory syncytial virus (RSV), vaccine, bivalent, protein subunit RSV prefusion F, diluent reconstituted, 0.5 mL, preservative free 305 CVX created date: 05/04/2025 administer ed date: 05/24/2023 Medications Section Medication Name Status Code CodeSystem Dose Route Frequency Admin Type Sig Text Start Date End Date Indication Apixaban Oral Tablet 2.5 MG aborted 33508 35 RXNORM 1 table t Oral two times a day Routin e Give 1 table t by mouth two times a day for DVT Proph ylaxi s 05/24 DVT Prophylaxis oxyCODONE HCl Oral Tablet 5 MG aborted 67960 21 RXNORM 1 table t Oral as needed PRN Give 1 table t by mouth every 4 hours as neede d for pain relat ed to PAIN, UNSPE CIFIE D (R52) 1 tab for pain 4-6/1 0 - secon d line AND Give 2 table t by mouth every 4 hours as neede d for pain relat ed to PAIN, UNSPE CIFIE D (R52) 2 tabs for pain 7-10/ 10 every four hours as neede d for pain- secon d line 05/11 pain 85599 21 RXNORM 2 table t Oral as needed PRN Give 1 table t by mouth every 4 hours as neede d for pain relat ed to PAIN, UNSPE CIFIE D (R52) 1 tab for pain 4-6/1 0 - secon d line AND Give 2 table t by mouth every 4 hours as neede d for pain relat ed to PAIN, UNSPE CIFIE D (R52) 2 tabs for pain 7-10/ 10 every four hours as neede d for pain- secon d line 05/11 pain Sennosides- Docusate Sodium Oral Tablet 8.6-50 MG aborted 96442 0 RXNORM 1 table t Oral two times a day Routin e Give 1 table t by mouth two times a day relat ed to DRUG INDUC ED CONST IPATI ON (K59. 03) To preve nt const ipati on in the posto perat soren timef rame and/o r while using opioi d pain medic ation s. Decre ase or disco ntinu e using if you devel op loose stool s. 05/24 - Fish Oil Oral Capsule aborted 2 capsu le Oral one time a day Routin e Give 2 capsu le by mouth one time a day for Suppl [facility] 05/04 Supplement Baclofen Oral Tablet 10 MG aborted 76388 1 RXNORM 1 table t Oral as needed PRN Give 1 table t by mouth as neede d for Muscl e Relax ant relat ed to CRAMP AND SPASM (R25. 2) 1 tab Bid PRN 05/04 Muscle Relaxant Turmeric Oral Tablet aborted 1 table t Oral one time a day Routin e Give 1 table t by mouth one time a day for Suppl [facility] 05/24 Supplement Cyanocobala min Oral Capsule 5000 MCG aborted 36787 80 RXNORM 1 capsu le Oral one time a day Routin e Give 1 capsu le by mouth one time a day for Suppl [facility] 05/24 Supplement Premarin Oral Tablet 0.625 MG aborted 30186 0 RXNORM 1 table t Oral one time a day Routin e Give 1 table t by mouth one time a day [facility] 05/24 [facility] Sesame Oil Nasal [place] Nasal Solution aborted 2 spray Nasal two times a day Routin e 2 spray in both nostr ils two times a day for Nasal Dryne ss Famil y will suppl y 05/24 Nasal Dryness Ferrous Sulfate Oral Tablet 27 MG aborted 88619 6 RXNORM 134 mg Oral one time a day Routin e Give 134 mg by mouth one time a day for Suppl ement 05/04 Supplement Tolterodine Tartrate Oral Tablet 2 MG aborted 04748 4 RXNORM 1 table t Oral two times a day Routin e Give 1 table t by mouth two times a day for Overa ctive Bladd er 05/24 Overactive Bladder Synthroid Oral Tablet 75 MCG aborted 31237 1 RXNORM 1 table t Oral one time a day Routin e Give 1 table t by mouth one time a day for Thyro id 05/05 Thyroid Acetaminoph en Oral Tablet 500 MG aborted 48297 0 RXNORM 1000 mg Oral every 6 hours Routin e Give 1000 mg by mouth every 6 hours relat ed to PAIN, UNSPE CIFIE D (R52) for 30 Days First line medic ation for p ain. Okay to take on a sched uled basis every 6 h ours in the days follo wing surge ry, then take on a n as -need ed basis as pain impro ves. Do not e xceed 4,000 mg of aceta minop hen from all s ource s in a day. 05/14 - Pantoprazol e Sodium Oral Tablet Delayed Release 40 MG aborted 02382 0 RXNORM 1 table t Oral in the morning Routin e Give 1 table t by mouth in the Touch Payments for Acid Reflu x for 30 Days Take befor e Skiin Fundementals Meal 05/24 Acid Reflux Multivitami n Oral Tablet aborted 1 table t Oral one time a day Routin e Give 1 table t by mouth one time a day for Suppl rand Multi vitam in with Iron 05/24 Supplement valACYclovi r HCl Oral Tablet 500 MG aborted 72124 5 RXNORM 1 table t Oral one time a day Routin e Give 1 table t by mouth one time a day for Antiv iral relat ed to HERPE SVIRA L VESIC ULAR DERMA TITIS (B00. 1) 05/24 Antiviral Calcium Carbonate-V it D-Min Oral Tablet aborted 2 table t Oral at bedtime Routin e Give 2 table t by mouth at bedti me for suppl ement 05/24 supplement Ondansetron Oral Tablet Disintegrat ing 4 MG aborted 01877 4 RXNORM 1 table t Oral as needed PRN Give 1 table t by mouth every 6 hours as neede d for Nause a & Vomit ing relat ed to NAUSE A (R11. 0) for 30 Days 05/24 Nausea & Vomiting Tuberculin PPD Solution 5 UNIT/0.1ML aborted 97030 2 RXNORM 0.1 ml Intrad ermal every evening shift Routin e Injec t 0.1 ml intra derma lly every eveni ng shift for TB (Tube rculo sis) Scree jus for 1 Admin istra tions AND Injec t 0.1 ml intra derma lly every eveni ng shift for TB (Tube rculo sis) Scree jus for 1 Admin istra tions 05/04 TB (Tuberculos is) Screening 39029 2 RXNORM 0.1 ml Intrad ermal every evening shift Routin e Injec t 0.1 ml intra derma lly every eveni ng shift for TB (Tube rculo sis) Scree jus for 1 Admin istra tions AND Injec t 0.1 ml intra derma lly every eveni ng shift for TB (Tube rculo sis) Scree jus for 1 Admin istra tions 05/04 TB (Tuberculos is) Screening Tranexamic Acid Oral Tablet 650 [place] [address] 6 RXNORM 3 table t Oral one time a day Routin e Give 3 table t by mouth one time a day for DVT Proph ylaxi s for 3 Days 05/08 DVT Prophylaxis Ferrous Sulfate Oral Tablet 27 MG aborted 05871 6 RXNORM 1 table t Oral as needed PRN Give 1 table t by mouth as neede d for suppl ement relat ed to NATASHA ASCENCIO (D64. 9) 134 mg QD 05/24 supplement Vitamin C Oral Tablet aborted 500 mg Oral one time a day Routin e Give 500 mg by mouth one time a day for Suppl ement 05/04 Supplement clonazePAM Oral Tablet 0.5 MG aborted 7 RXNORM 0.5 mg Oral three times a day Routin e Give 0.5 mg by mouth three times a day for anxie ty 05/24 anxiety Fish Oil Oral Capsule aborted 1000 mg Oral one time a day Routin e Give 1000 mg by mouth one time a day for Suppl ement 05/24 Supplement Vitamin C Oral Tablet aborted 500 mg Oral one time a day Routin e Give 500 mg by mouth one time a day for Suppl ement 500 mg = 1 table t 05/24 Supplement Synthroid Oral Tablet 75 MCG aborted 48514 1 RXNORM 1 table t Oral one time a day Routin e Give 1 table t by mouth one time a day for Thyro id 05/24 Thyroid oxyCODONE HCl Oral Tablet 5 MG aborted 68867 21 RXNORM 1 table t Oral two times a day Routin e Give 1 table t by mouth two times a day relat ed to PAIN, UNSPE CIFIE D (R52) 05/24 - Tuberculin PPD Solution 5 UNIT/0.1ML aborted 16920 2 RXNORM 0.1 ml Intrad ermal every evening shift Routin e Injec t 0.1 ml intra derma lly every eveni ng shift for TB (Tube rculo sis) Scree jus for 1 Admin istra tions AND Injec t 0.1 ml intra derma lly every eveni ng shift for TB (Tube rculo sis) Scree jus for 1 Admin istra tions 05/08 TB (Tuberculos is) Screening 64191 2 RXNORM 0.1 ml Intrad ermal every evening shift Routin e Injec t 0.1 ml intra derma lly every eveni ng shift for TB (Tube rculo sis) Scree jus for 1 Admin istra tions AND Injec t 0.1 ml intra derma lly every eveni ng shift for TB (Tube rculo sis) Scree jus for 1 Admin istra tions 05/08 TB (Tuberculos is) Screening Tuberculin PPD Solution 5 UNIT/0.1[place] [address] 2 RXNORM 0.1 ml Intrad ermal in the evening Routin e Injec t 0.1 ml intra derma lly in the eveni ng for TB (Tube rculo sis) Scree jus for 1 Admin istra tions AND Injec t 0.1 ml intra derma lly every eveni ng shift for TB (Tube rculo sis) Scree jus for 1 Admin istra tions 05/09 TB (Tuberculos is) Screening 97890 2 RXNORM 0.1 ml Intrad ermal every evening shift Routin e Injec t 0.1 ml intra derma lly in the eveni ng for TB (Tube rculo sis) Scree jus for 1 Admin istra tions AND Injec t 0.1 ml intra derma lly every eveni ng shift for TB (Tube rculo sis) Scree jus for 1 Admin istra tions 05/23 TB (Tuberculos is) Screening oxyCODONE HCl Oral Tablet 5 MG aborted 67795 21 RXNORM 1 table t Oral as needed PRN Give 1 table t by mouth every 4 hours as neede d for pain relat ed to PAIN, UNSPE CIFIE D (R52) 05/21 pain Tylenol 8 Hour Arthritis Pain Oral Tablet Extended Release 650 MG aborted 35194 40 RXNORM 2 table t Oral three times a day Routin e Give 2 table t by mouth three times a day relat ed to UNILA TERAL PRIMA RY OSTEO ARTHR ITIS, LEFT KNEE (M17. 12) 05/24 - oxyCODONE HCl Oral Tablet 5 MG aborted 78041 21 RXNORM 1 table t Oral as needed PRN Give 1 table t by mouth every 12 hours as neede d for pain relat ed to PAIN, UNSPE CIFIE D (R52) 05/22 pain oxyCODONE HCl Oral Tablet 5 MG aborted 46819 21 RXNORM 1 table t Oral as needed PRN Give 1 table t by mouth every 8 hours as neede d for for pain 05/24 for pain Mental Status Section Date Assessment Total Score Description 05/11/2025 BIMS 15 cognitively int act CAM 0 No delirium ind icated PHQ-9 06 mild depression Insurance Providers Plan of Treatment Section Interventions Intervention Code Code System Display Name Proposed D ate Problems Problem # Description Date of onset Resolved Date Code CodeSystem Concern Status 1 HYPOTHYROIDISM, UNSPECIFIED 05/14/[address] active 2 OVERACTIVE BLADDER 05/14/[address] active 3 ANEMIA, UNSPECIFIED 05/11/[address] active 4 CRAMP AND SPASM 05/04/[address] ac tive 5 DRUG INDUCED CONSTIPATION 05/04/[address] active 6 DYSPHAGIA, UNSPECIFIED 05/04/[address] active 7 ENCOUNTER FOR OTHER ORTHOPEDIC AFTERCARE 05/04/[address] active 8 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 05/04/[address] active 9 NAUSEA 05/04/[address] active 10 OTHER MALAISE 05/04/[address] act soren 11 PAIN, UNSPECIFIED 05/04/[address] active 12 PRESENCE OF LEFT ARTIFICIAL KNEE JOINT 05/04/[address] active 13 SPASTIC HEMIPLEGIA AFFECTING LEFT NONDOMINANT SIDE 05/04/[address] active 14 UNILATERAL PRIMARY OSTEOARTHRITIS, LEFT KNEE 05/04/[address] active Reason for Referral No Reasons for Referral Entered Social History Social History Observation Description Start Date End Date Code Code System Current Smoking Status Tobacco smoking consumption unknown 857906727 SNOMED CT Sex Assigned At Female 1945 79551-1 LOINC Gender Identity Female [id number] [address] Sexual Orientation Heterosexual (finding) 81890817 SNOMED CT Vital Signs Code Code System Vitals Name Values and Units Timing Information 64458-5 LOINC Pain Level Value=6.0 05/24/2025 9279-1 LOINC Respiratory Rate Value=18.0 Units=/m in 05/23/2025 8462-4 LOINC Blood Pressure-Diastolic Value=63 Un its=mmHg 05/23/2025 8480-6 LOINC Blood Pressure-Systolic Wvfwq=038 Un its=mmHg 05/23/2025 8310-5 LOINC Body Temperature Value=97.5 Units= F 05/23/2025 8867-4 LOINC Heart rate Value=84.0 Units=/min 96788-8 LOINC O2 % BldC Oximetry Value=93.0 Units= % 05/23/2025 53315-5 LOINC Weight Hbbmg=359.0 Units=Lbs 8302-2 LOINC Height Value=61.0 Units=Inches 05/05/2025
--- OUTSIDE RECORDS SUMMARY | 2025-06-14 18:36 | XMS_ITS | Encounter Summary ---
Author Organization [facility] Address [address] [place] [address] Care Team Providers Care Raw Products Director Name Role Phone Elsewhere, Pcp Primary Care Provider Unavailabl e Reason for Referral * Outpatient (Routine) - Authorized Specialty Diagnoses / Procedures Referred By Jamie hanna Referred To Contact Diagnoses Arthroplasty Total Knee Replacement Status Post Left Procedures DX Knee Left Standing 3 Views Jonny Cintron P.A.-C. [address] [place] [phone] Phone: tel: fax: [facility] Referral ID Status Reason Start Date Expiration Date V isits Requested Visits Authorized [id number] Authorized 05/09/2025 08/09/2026 1 1 * Outpatient (Routine) - Authorized Specialty Diagnoses / Procedures Referred By Jamie hanna Referred To Contact Orthopedic Surgery Diagnoses Arthroplasty Total Knee Replacement Status Post Left Jonny Cintron P.A.-C. [address] [place] [address] Phone: tel: fax: Eduardo Bahena M.D. [address] [place] [address] Phone: tel: fax: Referral ID Status Reason Start Date Expiration Date V isits Requested Visits Authorized [id number] Authorized 05/09/2025 11/08/2026 1 1 * Outpatient (Routine) - Authorized Specialty Diagnoses / Procedures Referred By Jamie t Referred To Contact Diagnoses Arthroplasty Total Knee Replacement Status Post Left Procedures DX Hip to Ankle Standing Jonny Cintron P.A.-C. [address] [place] [address] Phone: tel: fax: [facility] Referral ID Status Reason Start Date Expiration Date V isits Requested Visits Authorized [id number] Authorized 05/09/2025 08/09/2026 1 1 Reason for Visit * Reason Onset Date Comments Follow-up Orders 05/09/2025 Encounter Details Date Type Department Care Team (Latest Contact Info) Description 05/09/2025 Clinical Communication Department of Orthopedic Surgery in [place], [place] [address] [place] [address] Eduardo Bahena M.D. [address] [place] [phone] Follow-up Orders Social History Tobacco Use Types Packs/Day Years [...] things needed for daily living? No 04/27/2025 [facility] Utilities Answer Date Recorded In the past 12 months has [employer] electric, gas, oil, or water company threatened to shut off services in your home? No 04/27/2025 Housing Stability Answer Date Recorded What is your living situation today? I have a [facility] place to live 04/27/2025 Education Answer Date Recorded What is the highest level of school you have completed or the highest degree you have received? Associate degree: occupational, technical, or vocational program 03/16/2019 Comments No Sex and Gender Information Value Date Recorded Sex Assigned at Female 04/22/2021 5:18 PM CDT Legal Sex Female 4:49 AM SALON STYLIST Gender Identity Female 09/07/2022 7:24 PM SALON STYLIST Sexual Orientation Not on file documented as of this encounter Plan of Treatment Scheduled Orders Name Type Priority Associated Diagnoses Orde r Schedule DX Hip to Ankle Standing Imaging RAD - Routine (most inpatients and all outpatients) Arthroplasty Total Knee Replacement Status Post Left Expected: 07/27/2025, Expires: 08/09/2026 DX Knee Left Standing 3 Views Imaging RAD - Routine (most inpatients and all outpatients) Arthroplasty Total Knee Replacement Status Post Left Expected: 07/27/2025, Expires: 08/09/2026 Scheduled Referrals Name Type Priority Associated Diagnoses Orde r Schedule Orthopedic Surgery Post Op (clinic) Outpatient Referral Routine Arthroplasty Total Knee Replacement Status Post Left Expected: 07/27/2025, Expires: 08/09/2026 documented as of this encounter Visit Diagnoses Diagnosis Arthroplasty Total Knee Replacement Status Post Left- Primary documented in this encounter Additional Health Concerns Assessment Noted Time PHQ-9 Depression Total Score: 16 006 12:53 PM SALON STYLIST documented as of this encounter Care Teams Raw Products Director Relationship Specialty Start Date End Date Elsewhere, Pcp PCP - General Internal Medicine 11/24/24 documented as of this encounter
--- OUTSIDE RECORDS SUMMARY | 2025-06-14 18:36 | XMS_ITS | Clinical Summary ---
Author Organization [facility] Address [address] [place] [address] Care Team Providers Care Media Sales Representative Name Role Phone Kymberly Shannon MD Primary Care Provider [phone] Allergies Active Allergy Reactions Criticality Noted Date Comments Bupropion Shortness Of Breath,Rash 12/19/2015 [facility] Carbamazepine Rash 12/19/2015 SEVERE; Difficulty Breathing Escitalopram Shortness Of Breath,Rash 12/19/2015 [facility] Phenobarbital Rash 12/19/2015 SEV[facility]; Difficulty Breathing Phenytoin Rash 12/19/2015 SEVERE; Difficulty Breathing Medications SYNTHROID 75 mcg tablet Take 75 mcg by mouth once daily. 0 5 Active PREMARIN 0.625 mg tablet Take 0.625 mg by mouth once daily. 3 5 Active hydroxychloroquin e (PLAQUENIL) 200 mg tablet Take 200 mg by mouth 2 times daily. 2 5 Active clonazePAM (KLONOPIN) 0.5 mg tablet Take 0.5-1 mg by mouth 3 times daily. 0 5 Active Calcium-Magnesium -Zinc tab Take 2 Tabs by mouth at bedtime. 0 5 Active Ferrous Sulfate 134 mg (27 mg iron) tablet Take 134 mg by mouth. Take every other day as needed. 0 5 Active eucalyptus-pepper mint oil (PONARIS) solnIndications:N tom septal perforation,Nonal lergic rhinitis Use 3 drops in each nostril bid. 15 mL 11 5 Active MOXIFLOXACIN 0.1% INTRACAMERAL INJECTION (CHINEDU AMB MIX) Use as directed for procedure. Expires: 0.2 mL 12/18/2015 3:00 PM CDT 6 Active spironolactone (ALDACTONE) 50 mg tablet Take 50 mg by mouth 2 times daily. Patient takes 2 tablets in AM and 1 tablet in PM. Active VALACYCLOVIR HCL (VALTREX ORAL) Take 1,000 mg by mouth once daily if needed. Take 2 Tablets. Active OMEGA-3S/DHA/EPA/ FISH OIL (OMEGA 3 ORAL) Take 2 capsules by mouth once daily. Active multivitamins-iro n tablet Take 1 tablet by mouth once daily. Active Encounters Date Type Department Care Team Description 05/22/2025 Lab Requisition [facility] [address] [place] [address] Samara Alba NP 05/11/2025 Lab Requisition [facility] [phone] Samara Alba NP 05/08/2025 Lab Requisition [facility] [address] [place] [address] Samara Alba NP 05/08/2025 Lab Requisition [facility] [phone] Samara Alba NP from Last 3 Months Immunizations Immunization Administration Dates Next Due AMB Influenza, IIV3 (Age >=3 years)(Flu Clinic [facility]) 05/14/2009,05/25/2008 Influenza, IIV3 (Age >=3 years) 05/24/2007 Social History Tobacco Use Types Packs/Day Years Used Date Smoking Tobacco: Never Smokeless Tobacco: Never Tobacco Cessation:Counseling Given: Yes Alcohol Use Standard Drinks/Week Comments No 0 (1 standard drink = 0.6 oz pur e alcohol) Comments No Sex and Gender Information Value Date Recorded Sex Assigned at Not on file Legal Sex Female 5:23 AM POT MAKER Gender Identity Not on file Sexual Orientation Not on file Obstetrics History Last Filed Vital Signs Vital Sign Reading Time Taken Comments Blood Pressure 123/90 01/07/2016 8:37 AM CDT Pulse 74 01/07/2016 8:37 AM CDT Temperature 35.9 C (96.6 F) 01/07/2016 6:00 AM CDT Respiratory Rate 16 01/07/2016 8:37 AM CDT Oxygen Saturation 94% 01/07/2016 8:37 AM CDT Inhaled Oxygen Concentration - - Weight 50.8 kg (112 lb) 01/06/2016 4:26 PM CDT Height 154.9 cm (5' 1) 01/06/2016 4:26 PM CDT Body Mass Index 21.16 01/06/2016 4:26 PM CDT Plan of Treatment Health Maintenance Due Date Last Done Comments Tetanus booster 1955 Depression screening for age 12+ 1956 BMI (ht and wt on same day) for age 18+ 1962 Pneumococcal series for age 50+ (1 of 1 - PCV) 1994 Zoster (shingles) series for age 50+ (1 of 2) 1994 DEXA/DXA scan for age 65+ 2009 RSV vaccine for adults or (1 - 1-dose 75+ series) 2019 Influenza Vaccine (#1) 2025 9, 05/25/2008, 05/24/2007 Hepatitis B series for 19+ Aged Out N o longer eligible based on patient's age to complete this topic Medical Devices Implanted Type Area Folder Taper Operator Device Identifier Shelf Expiration Date Model / Serial / Lot Lens Iol Zlb00 21.5 - [id number] Implanted:Qty: 1 on 01/07/2016 by Modesto Mireles MD at [facility] Right: Eye [employer] 04/08/2019 [id number]# / [id number] / Procedures Procedure Name Priority Date/Time Associated Diagnosis Comments CBC WITH AUTO DIFFERENTIAL Routine 05/22/2025 7:57 AM CDT Anemia, unspecified CBC WITH AUTO DIFFERENTIAL Routine 05/22/2025 7:57 AM CDT Anemia, unspecified CBC WITH AUTO DIFFERENTIAL Routine 05/15/2025 7:08 AM CDT Anemia, unspecified CBC WITH AUTO DIFFERENTIAL Routine 05/15/2025 7:08 AM CDT Anemia, unspecified CBC WITH AUTO DIFFERENTIAL Routine 05/08/2025 7:26 AM CDT Anemia, unspecified CBC WITH AUTO DIFFERENTIAL Routine 05/08/2025 7:26 AM CDT Anemia, unspecified from Last 3 Months Results * (ABNORMAL) CBC WITH AUTO DIFFERENTIAL (05/22/2025 7:57 AM CDT) Only the most recent of3 resultswithin the time period is included. WHITE BLOOD COUNT 6.9 4.5 - 11.0 thou/cu mm 05/22/2025 9:42 AM [facility] RED BLOOD COUNT 3.73(L) 4.00 - 5.20 mil/cu mm 05/22/2025 9:42 AM [facility] HEMOGLOBIN 12.0 12.0 - 16.0 g/dL 05/22/2025 9:42 AM [facility] HEMATOCRIT 36.8 33.0 - 51.0 % 05/22/2025 9:42 AM [facility] MCV 99 80 - 100 fL 05/22/2025 9:42 AM [facility] MCH 32.2 26.0 - 34.0 pg 05/22/2025 9:42 AM [facility] MCHC 32.6 32.0 - 36.0 g/dL 05/22/2025 9:42 AM [facility] RDW 16.4(H) 11.5 - 15.5 % 05/22/2025 9:42 AM [facility] PLATELET COUNT 537(H) 140 - 440 thou/cu mm 05/22/2025 9:42 AM [facility] MPV 8.9 6.5 - 11.0 fL 05/22/2025 9:42 AM [facility] % NEUT 59.2 % 05/22/2025 9:42 AM [facility] % LYMPH 25.0 % 05/22/2025 9:42 AM [facility] % MONO 10.2 % 05/22/2025 9:42 AM [facility] % EOS 5.3 % 05/22/2025 9:42 AM CDT [facility] % BASO 0.3 % 05/22/2025 9:42 AM CDT [facility] ABSOLUTE NEUTROPHILS 4.1 1.7 - 7.0 thou/cu mm 05/22/2025 9:42 AM CDT [facility] ABSOLUTE LYMPHOCYTES 1.7 0.9 - 2.9 thou/cu mm 05/22/2025 9:42 AM CDT [facility] ABSOLUTE MONOCYTES 0.7 <0.9 thou/cu mm 05/22/2025 9:42 AM CDT [facility] ABSOLUTE EOSINOPHILS 0.4 <0.5 thou/cu mm 05/22/2025 9:42 AM CDT [facility] ABSOLUTE BASOPHILS 0.0 <0.3 thou/cu mm 05/22/2025 9:42 AM CDT [facility] Blood BLOOD SPECIMEN / Unknown Venipuncture / Unknown 05/22/2025 7:57 AM CDT 05/22/2025 9:25 AM CDT us Samara Alba NP HEMATOLOGY Final Resul t [facility] [address] [place] [address] from Last 3 Months Insurance MEDICARE PB ONLY [facility] MEDICARE PART B HB ONLY MEDICARE PART A HB ONLY Advance Directives * Full Code (Latest Code Status on File) Date Activated Date Inactivated Comments 01/07/2016 6:37 AM 01/07/2016 10:53 AM Care Teams Media Sales Representative Relationship Specialty Start Date End Date Kymberly Shannon MD [address] [place] [id number] PCP - General Internal Medicine 01/02/16
--- OUTSIDE RECORDS SUMMARY | 2025-06-14 18:36 | XMS_ITS | Encounter Summary ---
Author Organization [facility] Address [address] [place] [address] Care Team Providers Care Blood Donor Unit Assistant Name Role Phone Elsewhere, Pcp Primary Care Provider Unavailabl e Encounter Details Date Type Department Care Team (Late st Contact Info) Description 09/22/2018 [facility] [address] [place] [address] Kymberly Shannon M.D. [address] [place] [phone] Social History Tobacco Use Types Packs/Day Years Used Date Smoking Tobacco: Never Smokeless Tobacco: Never Comments Unknown Sex and Gender Information Value Date Recorded Sex Assigned at Female 04/22/2021 5:18 PM CDT Legal Sex Female 4:49 AM FAMILY RESOURCE COORDINATOR Gender Identity Female 09/07/2022 7:24 PM FAMILY RESOURCE COORDINATOR Sexual Orientation Not on file documented as of this encounter Plan of Treatment Not on file documented as of this encounter Visit Diagnoses Not on filedocumented in this encounter Additional Health Concerns Assessment Noted Time PHQ-9 Depression Total Score: 16 006 12:53 PM FAMILY RESOURCE COORDINATOR documented as of this encounter Care Teams Blood Donor Unit Assistant Relationship Specialty Start Date End Date Elsewhere, Pcp PCP - General Internal Medicine 11/24/24 documented as of this encounter
--- OUTSIDE RECORDS SUMMARY | 2025-06-14 18:37 | XMS_ITS | Encounter Summary ---
Author Organization [facility] Address [address] [place] [address] Care Team Providers Care Commercial Account Executive Name Role Phone Elsewhere, Pcp Primary Care Provider Unavailabl e Encounter Details Date Type Department Care Team (Late st Contact Info) Description 09/23/2009 Historical Ophthalmology [facility] Jay Peña O.D. [address] [place] [address] Social History Tobacco Use Types Packs/Day Years Used Date Smoking Tobacco: Never Assessed Comments Unknown Sex and Gender Information Value Date Recorded Sex Assigned at Female 04/22/2021 5:18 PM CDT Legal Sex Female 4:49 AM RN CAMP Gender Identity Female 09/07/2022 7:24 PM RN CAMP Sexual Orientation Not on file documented as of this encounter Progress Notes * Jay Peña O.D. - 09/23/2009 1:38 PM CST Eye General CHIEF COMPLAINT Plaquenil check HISTORY OF PRESENT ILLNESS Blurred vision at distance; both eyes; x 6 months; on and off; symptoms are minimal. Patient deniesocular pain. Denies flashes or floaters. History of dry eyes. Off plaquenil two days, will re-evaluate in one month. Plaquenil has been discontinued at this time. IMPRESSION / REPORT / PLAN #1 Dry eye syndrome She is pleased with the results of the Restasis. Continue with Restasis one drop each eye twice a day. #2 Cataract, both eyes, not visually significant. Plan: monitor periodically. #3 Plaquenil check No evidence of toxicity, monitor periodically. DIAGNOSIS #1 Dry eye syndrome #2 Cataract, both eyes, not visually significant. #3 Plaquenil check CDM Reports - EYEGEN Id: [id number] Status: Fnl documented in this encounter Plan of Treatment Not on file documented as of this encounter Visit Diagnoses Not on filedocumented in this encounter Additional Health Concerns Assessment Noted Time PHQ-9 Depression Total Score: 16 006 12:53 PM RN CAMP documented as of this encounter Care Teams Commercial Account Executive Relationship Specialty Start Date End Date Elsewhere, Pcp PCP - General Internal Medicine 11/24/24 documented as of this encounter
--- OUTSIDE RECORDS SUMMARY | 2025-06-14 18:37 | XMS_ITS | Encounter Summary ---
Author Organization [facility] Address [address] [place] [address] Care Team Providers Care Airport Maintenance Chief Name Role Phone Elsewhere, Pcp Primary Care Provider Unavailabl e Encounter Details Date Type Department Care Team (Late st Contact Info) Description 07/12/2007 Historical Ophthalmology [facility] Milan Harmon O.D. [address] [place] [phone] Social History Tobacco Use Types Packs/Day Years Used Date Smoking Tobacco: Never Assessed Comments Unknown Sex and Gender Information Value Date Recorded Sex Assigned at Female 04/22/2021 5:18 PM CDT Legal Sex Female 4:49 AM SEWER CONTRACTOR Gender Identity Female 09/07/2022 7:24 PM SEWER CONTRACTOR Sexual Orientation Not on file documented as of this encounter Progress Notes * Milan Harmon O.D. - 07/12/2007 10:39 AM CST Eye General CHIEF COMPLAINT yearly exam for plaquinel use HISTORY OF PRESENT ILLNESS No visual complaints. uses +2.75 OTC readers eyes red and dry, as before IMPRESSION / REPORT / PLAN #1 Dry eye syndrome both eyes (left>right) with possible nocturnal exposure left eye Plan: use Refresh Tears daily and Refresh Liquigel hs, d/c Patanol for there is no allergic component. #2 Refractive error (mixed astigmatism, presbyopia). Plan: spectacle prescription (Refraction 2) given, ok to continue with OTC readers #3 No ocular manifestations of plaqenil treatment Plan: continue to monitor annually Return every 1 year for vision, tonometry, and dilation. DIAGNOSIS #1 Dry eye syndrome both eyes (left>right) with possible nocturnal exposure left eye #2 Refractive error (mixed astigmatism, presbyopia). #3 No ocular manifestations of plaqenil treatment CDM Reports - EYEGEN Id: [id number] Status: Fnl documented in this encounter Plan of Treatment Not on file documented as of this encounter Visit Diagnoses Not on filedocumented in this encounter Additional Health Concerns Assessment Noted Time PHQ-9 Depression Total Score: 16 006 12:53 PM SEWER CONTRACTOR documented as of this encounter Care Teams Airport Maintenance Chief Relationship Specialty Start Date End Date Elsewhere, Pcp PCP - General Internal Medicine 11/24/24 documented as of this encounter
--- OUTSIDE RECORDS SUMMARY | 2025-06-14 18:37 | XMS_ITS | Encounter Summary ---
Author Organization [facility] Address [address] [place] [address] Care Team Providers Care Receiving Inspector Name Role Phone Elsewhere, Pcp Primary Care Provider Unavailabl e Encounter Details Date Type Department Care Team (Late st Contact Info) Description 09/20/2008 Historical Ophthalmology [facility] Toney Sommer M.D. [address] [place] [address] Social History Tobacco Use Types Packs/Day Years Used Date Smoking Tobacco: Never Assessed Comments Unknown Sex and Gender Information Value Date Recorded Sex Assigned at Female 04/22/2021 5:18 PM CDT Legal Sex Female 4:49 AM WAREHOUSE DRIVER Gender Identity Female 09/07/2022 7:24 PM WAREHOUSE DRIVER Sexual Orientation Not on file documented as of this encounter Progress Notes * Toney Sommer M.D. - 09/20/2008 2:25 PM CST Eye General CHIEF COMPLAINT Plaquenil eye examination HISTORY OF PRESENT ILLNESS The patient describes blurred vision for the past 6 months, which is constant, moderate in the distance. Patient also notes ringing in her head since six months ago. Patient denies flashes, floaters,diplopia. Plaquenil therapy has been intermittent. IMPRESSION / REPORT / PLAN #1 Plaquenil therapy No evidence of ocular toxicity, recommend annual exams #2 Cataracts both eyes Mild, observe #3 Dry eyes Continue Restasis and artificial tears DIAGNOSIS #1 Plaquenil therapy #2 Cataracts both eyes #3 Dry eyes CDM Reports - EYEGEN Id: [id number] Status: Fnl documented in this encounter Plan of Treatment Not on file documented as of this encounter Visit Diagnoses Not on filedocumented in this encounter Additional Health Concerns Assessment Noted Time PHQ-9 Depression Total Score: 16 006 12:53 PM WAREHOUSE DRIVER documented as of this encounter Care Teams Receiving Inspector Relationship Specialty Start Date End Date Elsewhere, Pcp PCP - General Internal Medicine 11/24/24 documented as of this encounter
--- OUTSIDE RECORDS SUMMARY | 2025-06-14 18:37 | XMS_ITS | Encounter Summary ---
Author Organization [facility] Address [address] [place] [address] Care Team Providers Care Crop Grain Or Livestock Farmer Name Role Phone Elsewhere, Pcp Primary Care Provider Unavailabl e Encounter Details Date Type Department Care Team (Late st Contact Info) Description 09/24/2010 Historical Ophthalmology [facility] Maurisio Galvez M.D. [address] [place] [address] Social History Tobacco Use Types Packs/Day Years Used Date Smoking Tobacco: Never Assessed Comments Unknown Sex and Gender Information Value Date Recorded Sex Assigned at Female 04/22/2021 5:18 PM CDT Legal Sex Female 4:49 AM FITNESS COORDINATOR Gender Identity Female 09/07/2022 7:24 PM FITNESS COORDINATOR Sexual Orientation Not on file documented as of this encounter Progress Notes * Maurisio Galvez M.D. - 09/24/2010 1:53 PM CST Eye General CHIEF COMPLAINT Decreased distance vision; Plaquenil use HISTORY OF PRESENT ILLNESS Blurred vision; both eyes; x several months; constantly; symptoms are moderate. Pain; both eyes (left > right); x 1 year; intermittently; symptoms reported at level of 2/10. Dryness; mattering; both eyes ; x 1 year; intermittently; symptoms are moderate. Denies flashes, floaters and diplopia. IMPRESSION / REPORT / PLAN #1 plaquenil no signs of toxicity, follow #2 cataracts no rx yet #3 dry eyes continue with Rhestasis art tears. DIAGNOSIS #1 plaquenil #2 cataracts #3 dry eyes CDM Reports - EYEGEN Id: [id number] Status: Fnl documented in this encounter Plan of Treatment Not on file documented as of this encounter Visit Diagnoses Not on filedocumented in this encounter Additional Health Concerns Assessment Noted Time PHQ-9 Depression Total Score: 16 006 12:53 PM FITNESS COORDINATOR documented as of this encounter Care Teams Crop Grain Or Livestock Farmer Relationship Specialty Start Date End Date Elsewhere, Pcp PCP - General Internal Medicine 11/24/24 documented as of this encounter
--- OUTSIDE RECORDS SUMMARY | 2025-06-14 18:37 | XMS_ITS | Encounter Summary ---
Author Organization [facility] Address [address] [place] [address] Care Team Providers Care Mold Car Pusher Name Role Phone Elsewhere, Pcp Primary Care Provider Unavailabl e Encounter Details Date Type Department Care Team (Late st Contact Info) Description 03/03/2018 [facility] [address] [place] [address] Kymberly Shannon M.D. [address] [place] [phone] Screening Mammogram Breast Cancer (Primary Dx) Social History Tobacco Use Types Packs/Day Years Used Date Smoking Tobacco: Never Comments Unknown Sex and Gender Information Value Date Recorded Sex Assigned at Female 04/22/2021 5:18 PM CDT Legal Sex Female 4:49 AM TYPER Gender Identity Female 09/07/2022 7:24 PM TYPER Sexual Orientation Not on file documented as of this encounter Plan of Treatment Not on file documented as of this encounter Visit Diagnoses Diagnosis Screening Mammogram Breast Cancer- Primary documented in this encounter Additional Health Concerns Assessment Noted Time PHQ-9 Depression Total Score: 16 006 12:53 PM TYPER documented as of this encounter Care Teams Mold Car Pusher Relationship Specialty Start Date End Date Elsewhere, Pcp PCP - General Internal Medicine 11/24/24 documented as of this encounter
--- OUTSIDE RECORDS SUMMARY | 2025-06-14 18:37 | XMS_ITS | Encounter Summary ---
Author Organization [facility] Address [address] [place] [id number] Care Team Providers Care Structural Steel Painter Name Role Phone Elsewhere, Pcp Primary Care Provider Unavailabl e Encounter Details Date Type Department Care Team (Late st Contact Info) Description 05/04/2025 Orders Only Department of Orthopedic Surgery in [place], [place] [address] [place] [phone] Josef Pavon M.D. [address] [place] [phone] Social History Tobacco Use Types Packs/Day Years [...] money to buy more. Never true 04/27/20 Within the past 12 months, t he [...] things needed for daily living? No 04/27/2025 [facility] Utilities Answer Date Recorded In the past 12 months has [employer] electric, gas, oil, or water company threatened to shut off services in your home? No 04/27/2025 Housing Stability Answer Date Recorded What is your living situation today? I have a [facility] place to live 04/27/2025 Education Answer Date Recorded What is the highest level of school you have completed or the highest degree you have received? Associate degree: occupational, technical, or vocational program 03/16/2019 Comments No Sex and Gender Information Value Date Recorded Sex Assigned at Female 04/22/2021 5:18 PM CDT Legal Sex Female 4:49 AM SECURITY ASSOCIATE Gender Identity Female 09/07/2022 7:24 PM SECURITY ASSOCIATE Sexual Orientation Not on file documented as of this encounter Plan of Treatment Not on file documented as of this encounter Visit Diagnoses Not on filedocumented in this encounter Additional Health Concerns Assessment Noted Time PHQ-9 Depression Total Score: 16 006 12:53 PM SECURITY ASSOCIATE documented as of this encounter Care Teams Structural Steel Painter Relationship Specialty Start Date End Date Elsewhere, Pcp PCP - General Internal Medicine 11/24/24 documented as of this encounter
--- OUTSIDE RECORDS SUMMARY | 2025-06-14 18:37 | XMS_ITS | Encounter Summary ---
Author Organization [facility] Address [address] [place] [id number] Care Team Providers Care Project Structural Engineer Name Role Phone Elsewhere, Pcp Primary Care Provider Unavailabl e Encounter Details Date Type Department Care Team (Late st Contact Info) Description 01/17/2018 [facility] [address] [place] [phone] Kymberly Shannon M.D. 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
--- OUTSIDE RECORDS SUMMARY | 2025-06-14 18:37 | XMS_ITS | Clinical Summary ---
Author Organization [facility] Address [address] [place] [id number] Care Team Providers Care Animal Care Worker Name Role Phone Elsewhere, Pcp Primary Care Provider Unavailabl e Source Comments Patient records contain information from all sites at [facility]. For routine questions regarding patient records, call [phone] during business hours, M-F 8:00 AM - 5:00 PM Central Time. Record requests for emergency care only can be directed to [phone] at any time.[facility] Allergies Active Allergy Reactions Criticality Noted Date Comments Bupropion Other (see comments),Rash,Shortness of breath (Reselect Reaction) 08/06/2004 agitation SEVERE Carbamazepine Shortness of breath (Reselect Reaction),Rash High 06/02/2002 Duloxetine Other (see comments) High 06/18/2023 Edema feet, around eyes Escitalopram Other (see comments) 08/06/2004 Intolerance with Sedation Phenobarbital Shortness of breath (Reselect Reaction),Rash High 06/02/2002 Phenytoin Shortness of breath (Reselect Reaction),Rash High 06/05/2002 Medications * This document contains information received from the source organization and may not represent a complete record from that organization. levothyroxine (SYNTHROID) 75 mcg tablet Take 1 tablet by mouth daily. 11/22/19 15 Active baclofen (LIORESAL) 10 mg tablet Take 1 tablet by mouth 2 (two) times a day as needed. Muscle relaxant as needed 06/20/20 14 Active calcium carb/D3/magnesium/ zinc (CALCIUM CARB-D3-MAG [id number]) [phone] bu-mgeo-ig-mg tablet Take 2 tablets by mouth at bedtime. 11/27/19 12 Active MULTIVITAMIN WITH IRON ORAL Take 1 tablet by mouth daily. 09/21/19 09 Active docosahexanoic acid/epa (FISH OIL ORAL) Take 2 capsules by mouth daily. 06/28/20 08 Active ferrous sulfate 134 mg (27 mg iron) tablet Take 134 mg by mouth. 07/03/20 15 Active estrogens, conjugated, (PREMARIN) 0.625 mg tablet Take 0.625 mg by mouth. 05/16/20 15 Active valACYclovir (VALTREX) 500 mg tablet Take 1 tablet (500 mg total) by mouth daily. 90 tablet 12/16/19 23 Active Additional Information Patient taking differently:500 mg oral Daily,For prophylaxis of cold sore, Informant: Self, Family Member, Reported on 04/27/2025 sesame oil with daphne geranium oil (50 mL) Administer 2 sprays into each nostril 2 (two) times a day. 50 mL 11 5 11:34 AM CDT 06/26/20 24 Active tolterodine (DetroL) 2 mg tablet Take 1 tablet by mouth 2 (two) times a day. 11/02/19 25 Active ascorbic acid (VITAMIN C ORAL) Take 1 tablet by mouth daily. Active TURMERIC ORAL Take 1 tablet by mouth daily. Active cyanocobalamin, vitamin B-12, 5,000 mcg tablet, IR & ER, biphasic Take 1 tablet by mouth daily. Active apixaban (Eliquis) 2.5 mg tablet Take 1 tablet (2.5 mg total) by mouth 2 (two) times a day. 60 tablet 05/04/20 25 Active acetaminophen (TylenoL) 500 mg tablet Take 2 [...] all sources in a day. 200 tablet 05/04/20 25 Active sennosides-docusat e sodium (Senokot-S) 8.6-50 mg per tablet Take 1 tablet by mouth 2 (two) times a day. To prevent constipation in the postoperative timeframe and/or while using opioid pain medications. Decrease or discontinue using if you develop loose stools. 05/04/20 25 Active oxyCODONE (Roxicodone) 5 mg immediate release tabletIndications: Acute Pain Exception Indication: Acute Pain Exception. 1 tab for pain 4-6/10, 2 tabs for pain 7-10/10 every four hours as needed for pain- second line 25 tablet 05/04/20 25 Active clonazePAM (KlonoPIN) 0.5 mg tablet Take 1 tablet (0.5 mg total) by mouth 3 (three) times a day. 90 tablet 05/04/20 25 Active ondansetron ODT (Zofran-ODT) 4 mg disintegrating tablet Dissolve 1 tablet (4 mg total) in the mouth every 6 (six) hours as needed for nausea or vomiting for up to 30 days. 05/04/20 25 025 pantoprazole (Protonix) 40 mg EC tablet Take 1 tablet (40 mg total) by mouth daily before morning meal for 30 days. 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 Follow-up Orders 05/04/2025 Orders Only Department of Orthopedic Surgery in [place], [place] [address] [place] [address] Josef Pavon M.D. 05/01/2025 11:40 AM CDT Ancillary Procedure Department of Orthopedic Surgery 04/27/2025 7:13 AM CDT Anesthesia Event [facility] [address] [place] [address] Paola Aparicio M.D. Pint, Matthew B, R.N. 04/27/2025 6:55 AM CDT - 04/27/2025 10:43 AM CDT Surgery [facility] [address] [place] [address] Eduardo Bahena M.D. COMPLEX PRIMARY LEFT TOTAL KNEE ARTHROPLASTY WITH HINGE CONSTRUCT 04/27/2025 5:45 AM CDT - 05/04/2025 1:11 PM CDT Hospital Encounter [facility], [facility], Ninth Floor [address] [place] [address] Eduardo Bahena M.D. Decline Functional Status [R53.81] (Primary Dx); Dysphagia [R13.10]; Secondary Osteoarthritis Knee Left Discharge Disposition: Alf Facility 04/20/2025 1:00 PM CDT Comprehensive Visit Preoperative Evaluation Center in [place], [place] [address] [place] [address] Maurisio Samuel M.D. Bearden, Rylan D, P.A.-C. 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 Primary Osteoarthritis Knee Left (Primary Dx) 04/20/2025 8:22 AM CDT - 04/20/2025 11:59 PM CDT Hospital Encounter Department of Laboratory Medicine and Pathology, [facility] in [place], [place] [address] [place] [address] Maurisio Samuel M.D. Primary Osteoarthritis Knee Left Discharge Disposition: Home or Self Care 04/18/2025 9:30 AM CDT Clinical Communication Virtual Review in [place], [place] [address] [place] [address] Pre-visit Intake from Last 3 Months Immunizations Immunization Administration Dates Next Due H1N1 Inj 09/23/2009 HZV (ZOSTAVAX) 01/20/2011 Influenza Split 05/06/2011, 0,05/02/2009,2007 Influenza, Seasonal, Injectable 06/23/2005,06/01 Influenza, Unspecified 04/26/2012,2008,05/25/2008,2006,06/15/2006 PPSV23 09/23/2009,06/01/2002,05/25/1995 SARS-COV-2 (COVID-19) - PFIZ ER (Discontinued)(12 years or older) 06/11/2021 Td, (Adult) Unspecified 05/02/2002,09/15/1991 Tdap 10/27/2010 influenza trivalent high dos e (HD)(PF) 05/30/2014,05/11/2013 Family History Medical History Relation Name Comments Asthma Brother 1 Ayad Arevalo (yap lf brother Stroke from Type 2 Diabetes and being obese Colon cancer Brother 1 Ayad Arevalo (yap lf brother from stroke caused by Type 2 diabetes and being obese Asthma Brother 2 Anton at 11 alverto hs old. from Meningitis Alcohol abuse Brother 3 Ayad Castro Diabetes Brother 3 Ayad Castro Obesity Brother 3 Ayad Castro Stroke Brother 3 Ayad Castro Cancer Father Emile Castro Multiple Myelom a Colon cancer Father Emile Castro from colon csncer and Multiple Myeloma at agr 85 Colon polyps Father Emile Castro Asthma Father's Sister 1 Iveth Orozco from Multiple Myeloma at age 92 Colon cancer Father's Sister 1 Iveth Orozco from Multiple Myeloma at age 92 Arthritis Father's Sister 2 Iveth Egan Alcohol abuse Mother Elizabeth Castro Cancer Mother Elizabeth Castro Stomach CA Colon cancer Mother Elizabeth Castro from sto mach cancer. at age 77 Asthma Mother's Sister Mala Chowdhury at 92 f rom old age Asthma Sister Monica Blevins Sister from Covid in 2020 Colon cancer Sister Monica Blevins Dued from C ovid at age 79 kn 2020 Relation Name Status Comments Brother 1 Ayad Arevalo (half brother Alive Brother 2 Anton Alive Brother 3 Ayad Castro Alive Father Emile Castro Alive Father's Sister 1 Iveth Orozco Alive Father's Sister 2 Iveth Egan Alive Mother Elizabeth Castro Mother's Sister Mala Chowdhury Alive Sister Monica Blevins Alive Social History Tobacco Use Types Packs/Day Years [...] things needed for daily living? No 04/27/2025 [facility] Utilities Answer Date Recorded In the past 12 months has e electric, gas, oil, or water [email or web address] threatened to shut off services in your home? No 04/27/2025 Housing Stability Answer Date Recorded What is your living situation today? I have a vin place to live 04/27/2025 Education Answer Date Recorded What is the highest level of school you have completed or the highest degree you have received? 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 Sexual Orientation Not on file Last Filed Vital Signs Vital Sign Reading [...] Mass Index 21.5 04/27/2025 6:46 AM CDT Plan of Treatment Health Maintenance Due Date Last Done Comments Thyroid Stimulating Hormone (TSH) test for thyroid function 05/24/2021 05/24/2020, 12/29/2018, 09/03/2015, Additional history exists Depression Screening (Annual PHQ-2) 08/02/2024 COVID-19 Vaccine ( season) 2025 06/22/2024, 05/24/2023, 06/02/2022, Additional history exists Influenza Vaccine (#1) 2025 , 05/24/2023, 06/02/2022, Additional history exists DTaP,Tdap,and Td Vaccines (3 - Td or Tdap) 06/10/2031 06/10/2021, 10/27/2010, 05/02/2002, Additional history exists Pneumococcal vaccine (50+ years) Completed 01/17/2018, 03/07/2015, 09/23/2009, Additional history exists Zoster Vaccines Completed 10/18/2018, 12/31, 01/20/2011 RSV vaccine - (32-36 weeks) or 50+ years Completed 05/24/2023 Mammogram Discontinued 09/28/2024, 08/02, 07/30/2022, Additional history exists Fall Risk Screen (Annual) Completed 04/27/2025 IPV Vaccines Aged Out No longer eligi ble based on patient's age to complete this topic Medical Devices Implanted Type Area Batch And Furnace Operator Device Identifier Shelf Expiration Date Model / Serial / Lot Cmnt Bn Smp 40gm - [id number] Implanted:Qty: 1 on 04/27/2025 by Eduardo Bahena M.D. at [facility] Bone Cement Left: Knee [place] 6191-1-001 / / Cmnt Bn Smp 40gm - [id number] Implanted:Qty: 1 on 04/27/2025 by Eduardo Bahena M.D. at [facility] Bone Cement Left: Knee Charley 6191-1-001 / / Cmnt Bn Smp 40gm - [id number] Implanted:Qty: 1 on 04/27/2025 by Eduardo Bahena M.D. at [facility] Bone Cement Left: Knee Charley 6191-1-001 / / K-Wire Ss Thr Single 9 .062 - [id number] Implanted:Qty: 2 on 01/31/2003 Hardware e.g. pins/screw s/rods Cranial [place] Description:Device Manufactu rer - [place] Kimberly.. Device Status Text - HARDWARE- 8938. head Hip [facility] Cmnt 24 - [id number] - [id number] Implanted:Qty: 1 on 04/27/2025 by Eduardo Bahena M.D. at [facility] Hardware e.g. pins/screw s/rods Left: Knee Charley [id number] 04/04/2029 E867-4317 / [id number] / [id number] Hip [facility] Cmnt 24 - [id number] - [id number] Implanted:Qty: 1 on 04/27/2025 by Eduardo Bahena M.D. at [facility] Hardware e.g. pins/screw s/rods Left: Knee [place] [id number] 06/16/2029 [id number] / [id number] / [id number] S-Rom Noiles Femoral Rotating Hinge Cemented Left X-Small Implanted:Qty: 1 on 04/27/2025 by Eduardo Bahena M.D. at [facility] Knee Implant Left: Knee Depuy Synthes [id number] 04/01/2029 [id number] / / [id number] Tib Att Lps Xsm 12 - [id number] Implanted:Qty: 1 on 04/27/2025 by Eduardo Bahena M.D. at [facility] Knee Implant Left: Knee Depuy Synthes [id number] 12/30/2026 [id number] / / [id number] Kn Fem Prc Univ 20 - [id number] Implanted:Qty: 1 on 04/27/2025 by Eduardo Bahena M.D. at [facility] Knee Implant Left: Knee Depuy Synthes [id number] 08/01/2032 5 / / [id number] Kn Stm Pfc Sg Tib 13x30 - [id number] Implanted:Qty: 1 on 04/27/2025 by Eduardo Bahena M.D. at [facility] Knee Implant Left: Knee Depuy Synthes [id number] 09/29/2033 86-6401 / / [id number] Bsplt Tib Att Crs Rp Cmnt Sz 3 - [id number] Implanted:Qty: 1 on 04/27/2025 by Eduardo Bahena M.D. at [facility] Knee Implant Left: Knee Depuy Synthes 11/29/2034 [id number] / / [id number] Procedures Procedure Name Priority Date/Time Associated Diagnosis Comments ORTHOPEDIC SURGERY IMAGE EXAM Routine 05/01/2025 11:39 AM CDT US LOWER EXTREMITY VEINS LEFT RAD - Timed (for specific dates/times) 05/01/2025 9:17 AM CDT POCT NONINVASIVE HGB Routine 04/30/2025 7:21 AM CDT POCT NONINVASIVE HGB Routine 04/29/2025 7:24 AM CDT RENAL FUNCTION PANEL, S Routine 04/29/2025 6:55 AM CDT POCT NONINVASIVE HGB Routine 04/28/2025 4:33 AM CDT BASIC METABOLIC PANEL, S/P Routine 04/28/2025 2:41 AM CDT CBC WITH DIFFERENTIAL, B Routine 04/28/2025 2:41 AM CDT PULSE OXIMETRY WITH REMOTE OVERVIEW Routine 04/27/2025 11:03 AM CDT ADULT OXYGEN THERAPY Routine 04/27/2025 10:02 AM CDT DX KNEE LEFT 2 VIEWS RAD - Routine (most inpatients and all outpatients) 04/27/2025 9:58 AM CDT LDA ANE ENDOTRACHEAL AIRWAY Routine 04/27/2025 7:37 AM CDT MT INJ ANES FEM NERVE W GUIDANCE Routine 04/27/2025 7:22 AM CDT ARTHROPLASTY REPLACEMENT TOTAL KNEE 04/27/2025 6:53 AM CDT Primary Osteoarthritis Knee Left ECG Routine 04/20/2025 2:11 PM CDT Stroke Cerebrovascular Accident Personal History CBC WITHOUT DIFFERENTIAL, B Routine 04/20/2025 8:32 AM CDT Primary Osteoarthritis Knee Left CREATININE WITH EGFR, S/P Routine 04/20/2025 8:32 AM CDT Primary Osteoarthritis Knee Left BI BREAST SCREENING BILATERAL WITH TOMOSYNTHESIS RAD - Routine (most inpatients and all outpatients) 09/28/2024 3:51 PM 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 Link [email or web address] Procedure Note Maurisio Merchant M.D. - 05/01/2025 [...] thrombosis and management can be found on the[employer] site. [email or web address] IMPRESSION: Mural thickening within the left upper femoral vein with suggestion ofsome associated echogenic material is favored to represent chronicpostthrombotic change as opposed to subacute thrombus. Consider follow-upin 1-2 weeks to assess temporal evolution. Otherwise, negative for acutedeep venous thrombosis. Christiano Robles M.D. IMG US PROCEDURES Final R esult * (ABNORMAL) Noninvasive HGB, POCT (04/30/2025 7:21 AM CDT) Only the most recent of3 resultswithin the time period is included. Noninvasive HGB, POCT 11.2.(A) 11.6 - 15.0 g/dL Skin 04/30/2025 7:21 AM CDT Juliette Manriquez M.D. LAB POCT ORDERABLES-THIEN L Final Result * (ABNORMAL) Renal Function Panel (04/29/2025 6:55 AM CDT) Potassium, S 4.2 3.6 - 5.2 mmol/L [...] M.D. LAB BLOOD ADD-ON Final Resul t [facility] [address] [place] [id number] DTL [facility] [address] [place] [address] * (ABNORMAL) CBC with Differential, Blood (04/28/2025 2:41 AM CDT) Hemoglobin 10.3(L) 11.6 - 15.0 g/dL 04/28/2025 [...] M.D. LAB BLOOD ADD-ON Final Re sult [facility] [address] [place] [address], [facility] DTL [facility] [address] [place] [address] [facility] [address] [place] [address] * (ABNORMAL) Basic Metabolic Panel (04/28/2025 2:41 AM CDT) Pathologist [facility] Potassium, S 4.6 3.6 - 5.2 mmol/L [...] M.D. LAB BLOOD ADD-ON Final Re sult [facility] [address] [place] [address], [facility] DTL [facility] [address] [place] [address] * DX Knee Left 2 Views (04/27/2025 [...] IMG DIAGNOSTIC IMAGING PRO CEDURES Final Result * LDA ANE ENDOTRACHEAL AIRWAY (04/27/2025 7:37 AM CDT) Narrative Keaton Matt R.N. - 04/27/2025 7:37 AM CDT Keaton Matt R.N. 04/27/2025 8:24 AM Airway Date/Time: 04/27/2025 7:37 AM Performed by: Keaton Matt R.N. Authorized by: Modesto Souza M.D., Ph.D. Patient location during procedure: OR / Procedure Area PROCEDURE DETAILS: Mask difficulty assessment: easy mask Final airway type: video laryngoscope Laryngeal Manipulation: no Final best view of glottic structures - Cormack/Lehane Score: grade 2A ETT location: oral VL device: glide scope [place] scope blade size: 3 Tube size: 6.5 ETT distance at teeth/gum: 20 Oral tube type: standard ETT Cuffed: yes Leak Test Performed: no Number of attempt to successful placement: 1 Airway confirmation: bilateral breath sounds, positive ETCO2 and bilateral chest rise Other previous techniques attempted: none PRE PROCEDURE DETAILS: Pre evaluation for airway management: procedure Urgency: elective Preop assessment of probable difficulty: no difficulty anticipated Preoxygenation: bag valve mask SEDATION / ANESTHESIA Anesthesia method: anesthesia POST PROCEDURE DETAILS: Procedure outcome: successful Notable Events: no complications Modesto Souza M.D., Ph.D. ANESTHESIA ORDERABLES Edited Result - Final * MT INJ ANES FEM NERVE W GUIDANCE (04/27/2025 7:22 AM CDT) Narrative Modesto Souza M.D., Ph.D. - 04/27/2025 7:22 AM CDT Modesto Souza M.D., Ph.D. 04/27/2025 7:42 AM Regional Block Date/Time: 04/27/2025 7:22 AM Performed by: Modesto Souza M.D., Ph.D. Authorized by: Modesto Souza M.D., Ph.D. Location: OR PROCEDURE DETAILS: Block Indication: post-op pain block Block indication comment: Post-Op pain block at request of surgeon Block Type - Lower extremity: adductor canal Positioning: supine Laterality: left Block technique: ultrasound guided Ultrasound image guidance used to localize target, identify at risk structures, and dynamically used to direct therapy to the target. Procedure was performed under sterile conditions.Image(s) acquired and saved Injection technique: single injection Needle type: echogenic Gauge: 20G Length: 10 Test dose: yes- negative test dose Incremental injection of local anesthetic with aspiration every:5cc Pain with needle advancement or injection of local anesthetic: no Injected Medications: Injection(s), anesthetic agent(s) and/or steroid; See MAR UNIVERSAL PROTOCOL All relevant documentation and testing were reviewed and available. All required blood products, implants, devices and or special equipment were made available as applicable. Pre-procedure verification was conducted and the correct site was marked if required. A fire risk and smoke assessment were done as applicable. The procedural time-out to verify correct patient, correct side/site, and procedure was conducted prior to performing the procedure and confirmed in a procedural pause. PRE-PROCEDURE DETAILS: Appropriate hand hygiene, gown, cap, mask, protective eyewear, sterile gloves, skin preparation, sterile drape, and strict aseptic technique were utilized as applicable for the procedure.: yes Skin prep: chlorhexidine / alcohol SEDATION / ANESTHESIA Anesthesia method: local infiltration Local infiltrate type: lidocaine POST-PROCEDURE DETAILS: Procedure completed successfully: successful procedure Notable Events: none Modesto Souza M.D., Ph.D. PROCEDURE/MINOR SURGI KIMI ORDERABLES Final Result * ECG 12 Lead (04/20/2025 2:11 PM CDT) Ventricular Rate ECG/Min 88 BPM MUSE MT Interval 238 ms MUSE QRSD Interval 70 ms MUSE QT Interval 370 ms MUSE QTC Interval 447 ms MUSE P [place] 52 degrees MUSE R [place] -7 degrees MUSE T Wave [place] 45 degrees MUSE 04/20/2025 2:11 PM CDT 04/20/2025 2:22 PM CDT Impressions MUSE - 04/20/2025 2:22 PM CDT Sinus rhythm with 1st degree A-V block Otherwise normal ECG When compared with ECG of 20-Dec-2012 09:13, MT interval has increased Reviewed by VIDAL Rapp Narrative Procedure Note Rafat Lisa Jr., M.D. - 04/20/2025 IMPRESSION: Sinus rhythm with 1st degree A-V block Otherwise normal ECG When compared with ECG of 20-Dec-2012 09:13, MT interval has increased Reviewed by VIDAL Rapp Nathan Orozco P.A.-C. ECG ORDERABLES Edited R esult - Final MUSE NA * CBC without Differential (04/20/2025 8:32 AM CDT) Hemoglobin 13.6 11.6 - 15.0 g/dL 04/20/2025 9:18 AM CDT DTL Hematocrit 41.1 35.5 - 44.9 % 04/20/2025 9:18 AM CDT DTL Erythrocytes 4.29 3.92 - 5.13 x10(12)/L 04/20/2025 9:18 AM CDT DTL MCV 95.8 78.2 - 97.9 fL 04/20/2025 9:18 AM CDT DTL RBC Distrib Width 13.9 12.2 - 16.1 % 04/20/2025 9:18 AM CDT DTL Platelet Count 286 157 - 371 x10(9)/L 04/20/2025 9:18 AM CDT DTL Leukocytes 7.3 3.4 - 9.6 x10(9)/L 04/20/2025 9:18 AM CDT DTL Blood (Blood, Venous) 04/20/2025 8:32 AM CDT 04/20/2025 8:56 AM CDT Maurisio Samuel M.D. LAB BLOOD ADD-ON Final Res ult Performing Organization Address City/[facility] Co de Phone Number [facility] [address] [place] [address] * Creatinine with Estimated GFR (04/20/2025 8:32 AM CDT) Creatinine 0.83 0.59 - 1.04 mg/dL 04/20/2025 9:30 AM CDT DTL Estimated GFR (eGFR) 71 >=60 mL/min/BSA 04/20/2025 9:30 AM CDT DTL Comment: Estimated GFR calculated using the 2020 CKD_EPI creatinine equation. Blood (Blood, Venous) 04/20/2025 8:32 AM CDT 04/20/2025 8:56 AM CDT Maurisio Samuel M.D. 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 RECOMMENDATION: Annual Screening Mammogram ASSESSMENT: BI-RADS: 1: Negative. 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 INDICATION: Screening mammogram. COMPARISON: Prior exam(s) were available and reviewed for comparison. DENSITY: c. The breast(s) are heterogeneously dense, which may obscure small masses. FINDINGS: No findings of malignancy. No significant change since prior exam. Procedure Note Сергей Mark M.D. - 09/28/2024 EXAM: BI BREAST SCREENING BILATERAL WITH TOMOSYNTHESIS Current study was evaluated with a Computer Aided Detection (CAD) system. INDICATION: Screening mammogram. COMPARISON: Prior exam(s) were available and reviewed for comparison. DENSITY: c. The breast(s) are heterogeneously dense, which may obscuresmall masses. FINDINGS: No findings of malignancy. No significant change since priorexam. IMPRESSION: Negative. RECOMMENDATION: Annual Screening Mammogram ASSESSMENT: BI-RADS: 1: Negative. Modesto Elliott M.D. IMG BI PROCEDURES Final Re sult * S-TSH (Thyroid-Stimulating Hormone - Sensitive) (05/24/2020 4:12 PM CDT) TSH, Sensitive 2.6 0.3 - 4.2 mIU/L 05/24/2020 5:16 PM CDT DTL Blood (Blood, Venous) 05/24/2020 4:12 PM CDT 05/24/2020 4:53 PM CDT us Lela Adorno M.D. LAB BLOOD ADD-ON Final Resu lt [facility] [address] [place] [address], [facility] [address] [place] [address] from Last 3 Months or Most Recently Relevant to Health Maintenance Insurance [facility] MEDICARE Advance Directives For more information, please contact: [phone] * Full Code (Latest Code Status on File) Date Activated Date Inactivated Comments 04/27/2025 12:51 PM 05/04/2025 3:21 PM Question Answer Comments Full Code: Discussed Care Teams Animal Care Worker Relationship Specialty Start Date End Date Elsewhere, Pcp PCP - General Internal Medicine 11/24/24
--- OUTSIDE RECORDS SUMMARY | 2025-06-14 18:37 | XMS_ITS | Encounter Summary ---
Author Organization [facility] Address [address] [place] [id number] Care Team Providers Care Business Law Instructor Name Role Phone Elsewhere, Pcp Primary Care Provider Unavailabl e Encounter Details Date Type Department Care Team (Late st Contact Info) Description 10/01/2005 Historical Ophthalmology RST OPH Jay Peña O.D. [address] [place] [address] Social History Tobacco Use Types Packs/Day Years Used Date Smoking Tobacco: Never Assessed Comments Unknown Sex and Gender Information Value Date Recorded Sex Assigned at Female 04/22/2021 5:18 PM CDT Legal Sex Female 4:49 AM CERTIFIED CODING SPECIALIST Gender Identity Female 09/07/2022 7:24 PM CERTIFIED CODING SPECIALIST Sexual Orientation Not on file documented as of this encounter Progress Notes * Jay Peña O.D. - 10/01/2005 12:00 AM CST Eye General CHIEF COMPLAINT baseline eye exam prior to starting plaquenil HISTORY OF PRESENT ILLNESS 60 year old female here for a baseline eye exam prior to starting plaquenil for morphia. She statesher distance vision has been stable. She is having increased difficulty with her near vision. She currently wear readers only. Flashes, floaters and diplopia are denied. Since her stroke in 1991 she is not able to close her left eye well and does have dryness. The use of artificial tears is beneficial. IMPRESSION / REPORT / PLAN #1 Refractive error (mixed astigmatism, presbyopia). Plan: spectacle prescription (Refraction 1) given. #2 Screen for ocular manifestation of systemic treatment Normal macula at this time. DIAGNOSIS #1 Refractive error (mixed astigmatism, presbyopia). #2 Screen for ocular manifestation of systemic treatment CDM Reports - EYEGEN Id: [id number] Status: Fnl documented in this encounter Plan of Treatment Not on file documented as of this encounter Visit Diagnoses Not on filedocumented in this encounter Care Teams Business Law Instructor Relationship Specialty Start Date End Date Elsewhere, Pcp PCP - General Internal Medicine 11/24/24 documented as of this encounter
[2025-06-14 18:39] VITALS: BP 132/74; PULSE 83; RESP 20; TEMP 36.6; O2SAT 96; BMI 21.7
--- NOTE | 2025-06-14 18:44 | CRLHL7_ITS ---
For Patients: As a result of the Century Cures Act, medical imaging exams and procedure reports are released immediately into your electronic medical record. You may view this report before your referring provider. If you have questions, please contact your health care provider. INDICATION: Pain and swelling TECHNIQUE: Ultrasound venous duplex lower left extremity. Compression venous exam was performed using agrawal-scale, color Doppler, and spectral Doppler analysis. COMPARISON: None FINDINGS: Sonographic imaging demonstrates the left common femoral, deep femoral, superficial femoral, popliteal, posterior tibial and greater saphenous and the contralateral right common femoral veins to be fully compressible with normal color Doppler blood flow. IMPRESSION: No convincing radiographic evidence of deep vein thrombosis within the visualized left lower extremity. Dictated by Fermin Hines MD @ 06/14/2025 8:03:59 PM (Electronically Signed)
--- NOTE | 2025-06-14 21:14 | CRLHL7_ITS ---
For Patients: As a result of the Century Cures Act, medical imaging exams and procedure reports are released immediately into your electronic medical record. You may view this report before your referring provider. If you have questions, please contact your health care provider. INDICATION: Knee pain and swelling, status post knee replacement on 04/27. TECHNIQUE: Left knee 2 view. COMPARISON: None available. FINDINGS: Bones: No acute fracture or dislocation. Few small chronic appearing osseous densities about the knee joint. Joints: Left total knee arthroplasty appears intact without radiographic evidence of loosening. Probable small knee joint effusion. Soft tissues: Diffuse soft tissue swelling. IMPRESSION: 1. Left TKA appears intact without evidence of hardware failure. No fracture identified. 2. Diffuse soft tissue swelling and probable small knee joint effusion. Dictated by Dulce Johnson MD @ 06/14/2025 10:49:46 PM (Electronically Signed)
--- NOTE | 2025-06-14 21:30 | ED.LOWEXIN ---
HPI - Extremity Injury (Lower) General Date Seen: 06/14/25 Chief Complaint: Extremity Pain/Injury, Lower Stated Complaint: worried about blood clot Time Seen by Provider: 06/14/25 18:37 Source: patient Mode of arrival: ambulatory Limitations: no limitations History of Present Illness HPI Narrative: Patient is an 79-year-old female presenting to the emergency department for left knee pain. She had surgery for a knee replacement at [facility] on 04/27/25. Since then she has not had much movement to her left knee. She states for the past few days she feels like there has been more swelling to the knee and the leg appears red. Has not noticed more pain. Has not noticed any change and the amount of movement she has. Her 1st follow-up with her surgeon is in July. She is concerned about a blood clot as she has had blood clots in the past. She is currently on Eliquis. Denies any chest pain or shortness of breath. No other concerns noted. Related Data Home Medications ?Medication ?Instructions ?Recorded ?Confirmed calcium 333 mg-vit D3 200 1 tab PO QDAY 06/17/23 06/22/24 unit-magnesium 133 mg-zinc 5 mg tablet multivitamin 1 tab PO QDAY 06/17/23 06/22/24 omega-3 fatty acids 1,000 mg 1,000 mg PO QDAY 06/17/23 06/22/24 capsule vitamin B complex 1 tab PO QDAY 06/17/23 06/22/24 apixaban 2.5 mg tablet (Eliquis) 2.5 mg PO BID 06/14/25 06/14/25 Previous Rx's ?Medication ?Instructions ?Recorded olopatadine 0.2 % eye drops 1 drp ophthalmic (eye) QDAY #2.5 mL 06/18/23 (Pataday Once Daily Relief) baclofen 10 mg tablet 10 mg PO TID PRN spasm #90 tabs 06/22/24 ciprofloxacin HCl 500 mg tablet 500 mg PO BID #20 tabs 06/22/24 (Cipro) conjugated estrogens 0.625 mg 0.625 mg PO QDAY #90 tabs 06/22/24 tablet (Premarin) hydrocortisone 2.5 % topical cream 1 applic topical BID #30 grams 06/22/24 hydroxychloroquine 200 mg tablet 200 mg PO BID #180 tabs 06/22/24 spironolactone 25 mg tablet 25 mg PO QDAY #90 tabs 06/22/24 valacyclovir 500 mg tablet 500 mg PO QDAY #90 tabs 06/22/24 (Valtrex) Synthroid 75 mcg tablet 75 mcg PO QDAY #90 tabs 07/18/24 (levothyroxine) clonazepam 1 mg tablet 1 mg PO TID #90 tabs 04/24/25 tolterodine 2 mg tablet (Detrol) 2 mg PO BID #60 tabs 04/24/25 Allergies Allergy/AdvReac Type Severity Reaction Status Date / Time carbamazepine (From Tegretol) Allergy Severe Rash Verified 06/22/24 11:44 phenobarbital Allergy Severe Rash Verified 06/22/24 11:44 phenytoin (From Dilantin) Allergy Severe Rash Verified 06/22/24 11:44 duloxetine (From Cymbalta) Allergy Intermediate swelling Verified 06/22/24 11:44 Review of Systems Narrative: Pertinent systems reviewed and were negative unless stated in HPI PFSH PFS Medical History History of cerebral hemorrhage (1991) ?Z86.79 - Personal history of other diseases of the circulatory system (ICD-10) Overactive bladder ?N32.81 - Overactive bladder (ICD-10) 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.1 - Herpesviral vesicular dermatitis (ICD-10) Generalized anxiety disorder ?F41.1 - Generalized anxiety disorder (ICD-10) Osteopenia ?M85.80 - Other specified disorders of bone density and structure, unspecified site (ICD-10) Adenomatous colon polyp ?D12.6 - Benign neoplasm of colon, unspecified (ICD-10) 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 (ICD-10) Hypothyroidism ?E03.9 - Hypothyroidism, unspecified (ICD-10) Dystonia ?G24.9 - Dystonia, unspecified (ICD-10) Surgical History History of total hysterectomy with bilateral salpingo-oophorectomy (BSO) ?Z90.710 - Acquired absence of both cervix and uterus (ICD-10) ?Z90.722 - Acquired absence of ovaries, bilateral (ICD-10) ?Z90.79 - Acquired absence of other genital organ(s) (ICD-10) History of cataract surgery ?Z98.49 - Cataract extraction status, unspecified eye (ICD-10) History of appendectomy ?Z90.49 - Acquired absence of other specified parts of digestive tract (ICD-10) Family History Father Colon cancer Social History Narrative: , retired, nonsmoker What is your current living situation?: I presently have a place to live Problems where you live: no known problems In the past 12 months, utilities in danger of being shut off: no In past 12 months, lack of transportation kept you from medical appts, meetings, work, or getting things needed for daily living: no In the past 12 mos, have been you worried that your food would run out before you had money to buy more?: never true In the past 12 mos, the food you bought just didn't last and you didn't have money to buy more?: never true Smoking Status: Never smoker How often do you have a drink containing alcohol: never AUDIT-C Alcohol total score: 0 Non-prescribed substance use: denies use How often does anyone, including family, friends and others, physically hurt you: never How often does anyone, including family, friends and others, insult or talk down to you: never How often does anyone, including family, friends and others, threaten you with harm: never How often does anyone, including family, friends and others, scream or curse at you: never Exam Narrative: Exam Narrative: Const: Well-nourished, Well-developed, in mild distress Eyes: PERRL, no conjunctival injection, and symmetrical lids HENT: Atraumatic external nose and ears. Moist mucous membranes. MSK: Swollen left lower extremity as very mildly warm compared to the right. The swelling goes from the knee all the way down to the ankle. There is a well-healing surgical site. Sutures are still in place. Skin: Warm, Dry. No rashes or lesions. Neuro: Normal Muscle tone, No focal neurological deficits. Psych: Awake, Alert, & Oriented x3. Appropriate mood and affect. Const: Vital Signs, click to edit/add: Vital Signs - 24 hr 06/14/25 18:39 Temperature 97.8 F Pulse Rate [Pulse Oximeter] 83 Respiratory Rate 20 Blood Pressure [Ri ght Upper Arm] 132/74 Pulse Oximetry 96 Oxygen Delivery Me thod Room Air Course Vital Signs Vital signs: Initial Vital Signs Temperature 97.8 F 06/14/25 18:39 Temperature Source Temporal Artery Scan 06/14/25 18:39 Pulse Rate 83 06/14/25 18:39 Respiratory Rate 20 06/14/25 18:39 Blood Pressure 132/74 06/14/25 18:39 Blood Pressure Mean 93 06/14/25 18:39 Blood Pressure Position Sitting 06/14/25 18:39 Pulse Oximetry 96 06/14/25 18:39 Oxygen Delivery Method Room Air 06/14/25 18:39 Vital Signs Temperature 97.8 F 06/14/25 18:39 Pulse Rate 83 06/14/25 18:39 Respiratory Rate 20 06/14/25 18:39 Blood Pressure 132/74 06/14/25 18:39 Pulse Oximetry 96 06/14/25 18:39 Oxygen Delivery Method Room Air 06/14/25 18:39 Temperature 97.8 F 06/14/25 18:39 Pulse Rate 83 06/14/25 18:39 Respiratory Rate 20 06/14/25 18:39 Blood Pressure 132/74 06/14/25 18:39 Pulse Oximetry 96 06/14/25 18:39 Oxygen Delivery Method Room Air 06/14/25 18:39 MDM - Extremity Injury (Lower) MDM Narrative Medical decision making narrative: Patient is an 79-year-old female presenting for left leg swelling. She is concerned about a blood clot and a ultrasound will be ordered. I relatively low concern for a septic joint as she is not overtly tender in the redness and swelling of the entire leg. This is more likely postop swelling. Will do an ESR, CRP, CBC and an x-ray of the knee to look for any joint effusion. Ultrasound did not show any signs of a blood clot. Patient's CBC returned showing no concerning abnormalities. Prior to the patient's ESR, CRP, knee x-ray results returning patient wanted to leave AMA. The patient is clinically not intoxicated, free from distracting pain, appears to have intact insight, judgment and reason and in my medical opinion has the capacity to make decisions. The patient is also not under any duress to leave the hospital. In this scenario, it would be battery to subject a patient to treatment against his/her will. I have voiced my concerns for the patient's health given that a full evaluation and treatment had not occurred. I have discussed the need for continued evaluation to determine if their symptoms are caused by a condition that present risk of or morbidity. Risks including but not limited to , permanent disability, prolonged hospitalization, prolonged illness, were discussed. I discussed the specific benefits of additional treatment, as well as tried offering alternative options in hopes that the patient might be amenable to partial evaluation and treatment which would be medically beneficial to the patient. However, the patient declined my options and insisted on leaving. Because I have been unable to convince the patient to stay, I answered all of their questions about their condition and asked them to return to the ED as soon as possible to complete their evaluation, especially if their symptoms worsen or do not improve. I emphasized that leaving against medical advice does not preclude returning here for further evaluation. I asked the patient to return if they change their mind about the further evaluation and treatment. I strongly encouraged the patient to return to this Emergency Department or any Emergency Department at any time, particularly with worsening symptoms. Will call her if results show any concerning findings. The x-ray interpreted by myself and the radiologist showed a possible small knee effusion but no other acute abnormalities. CRP is very mildly elevated 1.8 mg/dland below the 20 mg per L caught up to the 92% sensitivity to rule out septic arthritis. Her ESR is 29 which is above the cutoff. Considering the CRP is below the cut off and ESR still relatively low I am comfortable ruling out septic arthritis with the small knee effusion. Lab Data Labs: Lab Results 06/14/25 Range/Units 22:07 WBC 5.94 (4.50-11.00) K/uL RBC 4.12 (4.00-5.20) m/uL Hgb 12.9 (12.0-16.0) gm/dL Hct 41.0 (33.0-51.0) % MCV 100 (80-100) fL MCH 31 (26-34) pg MCHC 32 (32-36) gm/dL RDW Coeff of Lupe 14.6 (11.5-15.5) % Plt Count 374 (140-440) K/uL Neut % (Auto) 57.5 (42.0-72.0) % Lymph % (Auto) 25.3 (20-44) % [place] % (Auto) 13.3 H (0.0-11.0) % Eos % (Auto) 3.0 (0.0-7.0) % Baso % (Auto) 0.7 (0.0-3.0) % Neut # (Auto) 3.42 (1.7-7.0) K/uL Lymph # (Auto) 1.50 (0.90-2.90) K/uL [place] # (Auto) 0.80 (0.00-0.90) K/UL Eos # (Auto) 0.18 (0.00-0.50) K/uL Baso # (Auto) 0.04 (0.00-0.30) K/uL Abs Immat Gran (auto) 0.01 (0.00-0.30) K/uL Imm/Tot Granulo (auto) 0.2 % ESR 29 H (2-20) mm/hr C-Reactive Protein 1.8 H (0.5-1.0) mg/dL Imaging Data Venous US: Attestation: I have reviewed the pertinent imaging results. Radiologist's impression: No convincing radiographic evidence of deep vein thrombosis within the visualized left lower extremity. Dictated by Fermin Hines MD @ 06/14/2025 8:03:59 PM Left knee x-ray: Attestation: I have reviewed the pertinent imaging results. Radiologist's impression: 1. Left TKA appears intact without evidence of hardware failure. No fracture identified. 2. Diffuse soft tissue swelling and probable small knee joint effusion. Dictated by Dulce Johnson MD @ 06/14/2025 10:49:46 PM Discharge Plan Discharge Clinical Impression: Left leg swelling Patient Disposition: Left Against Medical Advice Condition: Stable Additional Instructions: There is no signs of blood clots. I will let you know if there is any concerning findings in your blood work or imaging. I do recommend calling your orthopedic surgeon in the morning to try and get closer follow-up Prescriptions: No Action omega-3 fatty acids 1,000 mg capsule 1,000 mg PO QDAY multivitamin Tablet 1 tab PO QDAY calcium carb-D3-mag [id number]-mg tablet 1 tab PO QDAY Rx Instructions: administer with a meal vitamin B complex Tablet 1 tab PO QDAY olopatadine [Pataday Once Daily Relief] 0.2 % drops 1 drp ophthalmic (eye) QDAY Qty: 2.5 5RF ciprofloxacin HCl [Cipro] 500 mg tablet 500 mg PO BID Qty: 20 0RF hydrocortisone 2.5 % cream 1 applic topical BID Qty: 30 2RF hydroxychloroquine 200 mg tablet 200 mg PO BID Qty: 180 1RF spironolactone 25 mg tablet 25 mg PO QDAY Qty: 90 3RF baclofen 10 mg tablet 10 mg PO TID PRN (Reason: spasm) Qty: 90 3RF Premarin 0.625 mg tablet 0.625 mg PO QDAY Qty: 90 3RF valacyclovir [Valtrex] 500 mg tablet 500 mg PO QDAY Qty: 90 3RF Eliquis 2.5 mg tablet 2.5 mg PO BID levothyroxine [Synthroid] 75 mcg tablet 75 mcg PO QDAY Qty: 90 3RF tolterodine [Detrol] 2 mg tablet 2 mg PO BID Qty: 60 2RF clonazepam 1 mg tablet 1 mg PO TID Qty: 90 2RF Follow Up/Referrals: Modesto Elliott MD [Primary Care Provider, Family Practice] Stand Alone Forms: MyHealth Info Instructions
[2025-06-14 22:14] LABS: Hematocrit* 41.0 % (33.0-51.0); Hemoglobin* 12.9 gm/dL (12.0-16.0); Immature Granulocytes Abs Auto 0.01 K/uL (0.00-0.30); Immature Granulocytes Pct Auto 0.2 %; Lymphocytes Absolute Auto 1.50 K/uL (0.90-2.90); Mean Corpuscular HGB Conc 32 gm/dL (32-36); Mean Corpuscular Hemoglobin 31 pg (26-34); Mean Corpuscular Volume 100 fL (80-100); RDW Coefficient of Variation % 14.6 % (11.5-15.5); Red Blood Count* 4.12 m/uL (4.00-5.20); White Blood Count* 5.94 K/uL (4.50-11.00)
[2025-06-14 22:23] LABS: Slide Review Reflex No
[2025-06-14 23:01] LABS: Erythrocyte SedimentationRate* 29 mm/hr (2-20)
== END 2025-06-14 22:32 | disposition left against medical advice (07) ==
PROVIDERS: Emergency Provider Student in an Organized Health Care Education/Training Program; PCP Family Medicine
DX: R22.42 Localized swelling, mass and lump, left lower limb (principal); Z96.652 Presence of left artificial knee joint
CPT/HCPCS: 36415; 73560; 85025; 85651; 86140; 93971; 99283; 99284; 99285

== ENCOUNTER 2025-07-09 08:54 | Emergency (ER) | payer MEDICARE, BC, SELFPAY ==
[2025-07-09] VITALS (51 sets, daily range): BP systolic 97–168; BP diastolic 53–96; PULSE 92–156; RESP 13–30; TEMP 37.3; O2SAT 84–97; BMI 26.6
--- NOTE | 2025-07-09 09:31 | ED.GENADULT ---
HPI - General Adult General Date Seen: 07/09/25 Chief complaint: Fall/Minor Trauma Stated complaint: Fall Time Seen by Provider: 07/09/25 09:31 History of Present Illness HPI narrative: 80-year-old female with a left knee replacement about 2 months ago on 04/24. 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 She was apparently found on the floor and had been there for about 12 hours. She had been seen in the ER about month ago with left knee pain. Apparently she had been having knee pain and limited mobility ever since her knee surgery done at [facility] in April. Related Data Home Medications ?Medication ?Instructions ?Recorded ?Confirmed calcium 333 mg-vit D3 200 1 tab PO DAILY 06/17/23 07/09/25 unit-magnesium 133 mg-zinc 5 mg tablet multivitamin 1 tab PO DAILY 06/17/23 07/09/25 omega-3 fatty acids 1,000 mg 1,000 mg PO DAILY 06/17/23 07/09/25 capsule vitamin B complex 1 tab PO DAILY 06/17/23 07/09/25 conjugated estrogens 0.625 mg 0.625 mg PO DAILY 07/09/25 07/09/25 tablet (Premarin) levothyroxine 75 mcg tablet 75 mcg PO DAILY 07/09/25 07/09/25 (Synthroid) olopatadine 0.2 % eye drops 1 drp ophthalmic (eye) DAILY 07/09/25 07/09/25 (Pataday Once Daily Relief) oxycodone 5 mg tablet mg PO 07/09/25 spironolactone 25 mg tablet 25 mg PO DAILY 07/09/25 07/09/25 valacyclovir 500 mg tablet 500 mg PO DAILY 07/09/25 07/09/25 (Valtrex) Previous Rx's ?Medication ?Instructions ?Recorded baclofen 10 mg tablet 10 mg PO TID PRN spasm #90 tabs 06/22/24 clonazepam 1 mg tablet 1 mg PO TID #90 tabs 04/24/25 tolterodine 2 mg tablet (Detrol) 2 mg PO BID #60 tabs 04/24/25 Allergies Allergy/AdvReac Type Severity Reaction Status Date / Time carbamazepine (From Tegretol) Allergy Severe Rash Verified 07/09/25 11:20 phenobarbital Allergy Severe Rash Verified 07/09/25 11:20 phenytoin (From Dilantin) Allergy Severe Rash Verified 07/09/25 11:20 duloxetine (From Cymbalta) Allergy Intermediate swelling Verified 07/09/25 11:20 [facility] Medical History History of cerebral hemorrhage (1991) ?Z86.79 - Personal history of other diseases of the circulatory system (ICD-10) Overactive bladder ?N32.81 - Overactive bladder (ICD-10) 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.1 - Herpesviral vesicular dermatitis (ICD-10) Generalized anxiety disorder ?F41.1 - Generalized anxiety disorder (ICD-10) Osteopenia ?M85.80 - Other specified disorders of bone density and structure, unspecified site (ICD-10) Adenomatous colon polyp ?D12.6 - Benign neoplasm of colon, unspecified (ICD-10) 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 (ICD-10) Hypothyroidism ?E03.9 - Hypothyroidism, unspecified (ICD-10) Dystonia ?G24.9 - Dystonia, unspecified (ICD-10) Surgical History History of total hysterectomy with bilateral salpingo-oophorectomy (BSO) ?Z90.710 - Acquired absence of both cervix and uterus (ICD-10) ?Z90.722 - Acquired absence of ovaries, bilateral (ICD-10) ?Z90.79 - Acquired absence of other genital organ(s) (ICD-10) History of cataract surgery ?Z98.49 - Cataract extraction status, unspecified eye (ICD-10) History of appendectomy ?Z90.49 - Acquired absence of other specified parts of digestive tract (ICD-10) Family History Father Colon cancer Social History Narrative: , retired, nonsmoker What is your current living situation?: I presently have a place to live Problems where you live: no known problems In the past 12 months, utilities in danger of being shut off: no In past 12 months, lack of transportation kept you from medical appts, meetings, work, or getting things needed for daily living: no In the past 12 mos, have been you worried that your food would run out before you had money to buy more?: never true In the past 12 mos, the food you bought just didn't last and you didn't have money to buy more?: never true Smoking Status: Never smoker How often do you have a drink containing alcohol: never AUDIT-C Alcohol total score: 0 Non-prescribed substance use: denies use How often does anyone, including family, friends and others, physically hurt you: never How often does anyone, including family, friends and others, insult or talk down to you: never How often does anyone, including family, friends and others, threaten you with harm: never How often does anyone, including family, friends and others, scream or curse at you: never Exam Const: Vital Signs, click to edit/add: Vital Signs - 24 hr 07/09/25 09:00 07/09/25 09:30 07/09/25 09:30 Temperature 99.2 F Pulse Rate Pulse Rate [Pulse Oximeter] 109 H 140 H Respiratory Rate 18 16 Blood Pressure Blood Pressure [Le ft Upper Arm] 124/73 101/72 Pulse Oximetry 87 L 92 84 L Oxygen Delivery Me thod Room Air Nasal Cannula Room Air Oxygen Flow Rate 2 07/09/25 10:00 07/09/25 11:15 07/09/25 11:32 Temperature Pulse Rate 128 H Pulse Rate [Pulse Oximeter] 120 H 101 H Respiratory Rate 16 29 H Blood Pressure Blood Pressure [Le ft Upper Arm] 120/68 124/78 Pulse Oximetry 94 94 95 Oxygen Delivery Me thod Nasal Cannula Nasal Cannula Oxygen Flow Rate 07/09/25 11:45 07/09/25 11:51 07/09/25 12:00 Temperature Pulse Rate 131 H 118 H 107 H Pulse Rate [Pulse Oximeter] Respiratory Rate 27 H 30 H Blood Pressure 141/72 H Blood Pressure [Le ft Upper Arm] Pulse Oximetry 94 94 97 Oxygen Delivery Me thod Oxygen Flow Rate 07/09/25 12:15 07/09/25 12:30 07/09/25 12:32 Temperature Pulse Rate 128 H 151 H 153 H Pulse Rate [Pulse Oximeter] Respiratory Rate 18 Blood Pressure 115/72 Blood Pressure [Le ft Upper Arm] Pulse Oximetry 95 94 96 Oxygen Delivery Me thod Oxygen Flow Rate 07/09/25 12:45 07/09/25 13:00 07/09/25 13:02 Temperature Pulse Rate 121 H 119 H 120 H Pulse Rate [Pulse Oximeter] Respiratory Rate 28 H 18 Blood Pressure 132/74 Blood Pressure [Le ft Upper Arm] Pulse Oximetry 96 95 96 Oxygen Delivery Me thod Oxygen Flow Rate 07/09/25 13:15 07/09/25 13:30 07/09/25 13:32 Temperature Pulse Rate 137 H 115 H 156 H Pulse Rate [Pulse Oximeter] Respiratory Rate 27 H 22 27 H Blood Pressure 131/83 Blood Pressure [Le ft Upper Arm] Pulse Oximetry 96 94 96 Oxygen Delivery Me thod Oxygen Flow Rate 07/09/25 13:45 07/09/25 14:00 07/09/25 14:02 Temperature Pulse Rate 103 H 103 H 103 H Pulse Rate [Pulse Oximeter] Respiratory Rate 16 20 18 Blood Pressure 133/73 Blood Pressure [Le ft Upper Arm] Pulse Oximetry 96 97 96 Oxygen Delivery Me thod Oxygen Flow Rate 07/09/25 14:15 07/09/25 14:30 07/09/25 14:33 Temperature Pulse Rate 100 109 H 100 Pulse Rate [Pulse Oximeter] Respiratory Rate 19 26 H 25 H Blood Pressure 121/60 Blood Pressure [Le ft Upper Arm] Pulse Oximetry 94 94 94 Oxygen Delivery Me thod Oxygen Flow Rate 07/09/25 14:34 07/09/25 14:45 07/09/25 15:00 Temperature Pulse Rate 101 H 109 H 127 H Pulse Rate [Pulse Oximeter] Respiratory Rate 23 Blood Pressure Blood Pressure [Le ft Upper Arm] Pulse Oximetry 94 94 94 Oxygen Delivery Me thod Oxygen Flow Rate 07/09/25 15:02 07/09/25 15:15 07/09/25 15:30 Temperature Pulse Rate 120 H 98 98 Pulse Rate [Pulse Oximeter] Respiratory Rate 13 28 H 19 Blood Pressure 97/63 Blood Pressure [Le ft Upper Arm] Pulse Oximetry 93 95 95 Oxygen Delivery Me thod Oxygen Flow Rate 07/09/25 15:33 07/09/25 15:33 07/09/25 15:33 Temperature Pulse Rate 99 99 99 Pulse Rate [Pulse Oximeter] Respiratory Rate 25 H 25 H 25 H Blood Pressure 118/60 118/60 118/60 Blood Pressure [Le ft Upper Arm] Pulse Oximetry 95 95 95 Oxygen Delivery Me thod Oxygen Flow Rate 07/09/25 15:45 07/09/25 16:00 07/09/25 16:02 Temperature Pulse Rate 97 96 97 Pulse Rate [Pulse Oximeter] Respiratory Rate 27 H 28 H Blood Pressure 125/74 Blood Pressure [Le ft Upper Arm] Pulse Oximetry 97 95 95 Oxygen Delivery Me thod Oxygen Flow Rate 07/09/25 16:15 07/09/25 16:30 07/09/25 16:32 Temperature Pulse Rate 95 93 93 Pulse Rate [Pulse Oximeter] Respiratory Rate 28 H Blood Pressure 110/53 L Blood Pressure [Le ft Upper Arm] Pulse Oximetry 95 93 93 Oxygen Delivery Me thod Oxygen Flow Rate Course Course ED Course: procedure: Left knee arthrocentesis indication: Sepsis, left knee redness and swelling, evaluate for septic joint verbal consent from patient and daughter and son. Patient was prepped in sterile fashion using Betadine. Sterile drape was used and strict aseptic technique with sterile gloves throughout the procedure. After sterile prep and drape we did administer anesthesia with local injection of 4 mL of 1% lidocaine with epi. Good anesthesia was achieved. From the superior lateral approach using an 18 gauge needle we did attempt an arthrocentesis based on landmarks. we went from the superior lateral approach because that was where an area where there was no redness or warmth of the skin. We were not able to get any fluid from the knee joint. Arthrocentesis attempt was discontinued after 1 puncture. No fluid was obtained. This does not appear to be a septic joint. Suspect that the swelling is related to overlying suprapatellar Or cellulitic infection. No complications noted. Vital Signs Vital signs: Initial Vital Signs Temperature 99.2 F 07/09/25 09:00 Temperature Source Temporal Artery Scan 07/09/25 09:00 Pulse Rate 109 H 07/09/25 09:00 Respiratory Rate 18 07/09/25 09:00 Blood Pressure 124/73 07/09/25 09:00 Blood Pressure Mean 90 07/09/25 09:00 Blood Pressure Position Sitting 07/09/25 09:00 Pulse Oximetry 87 L 07/09/25 09:00 Oxygen Delivery Method Room Air 07/09/25 09:00 Vital Signs Temperature 99.2 F 07/09/25 09:00 Pulse Rate 109 H 07/09/25 09:00 Respiratory Rate 18 07/09/25 09:00 Blood Pressure 124/73 07/09/25 09:00 Pulse Oximetry 87 L 07/09/25 09:00 Oxygen Delivery Method Room Air 07/09/25 09:00 Temperature 99.2 F 07/09/25 09:00 Pulse Rate 93 07/09/25 16:32 Respiratory Rate 28 H 07/09/25 16:15 Blood Pressure 110/53 L 07/09/25 16:32 Pulse Oximetry 93 07/09/25 16:32 Oxygen Delivery Method Nasal Cannula 07/09/25 11:15 Oxygen Flow Rate 2 07/09/25 09:30 Medications Administered Medications: Generic Name Dose Route Start Last Admin Trade Name Freq PRN Reason Stop Dose Admin Albuterol/Ipratropium 1 neb 07/09/25 12:24 07/09/25 12:44 Iprat-Albut 0.5-2.5 Mg/3 Ml Neb IH 1 neb Q2H PRN Administration Piperacillin Sod/Tazobactam 100 mls @ 200 mls/hr 07/09/25 10:00 07/09/25 12:20 Sod 4.5 gm/ Sodium Chloride IVPB Infused Q6H DELICIA Infusion Discontinued Medications Generic Name Dose Route Start Last Admin Trade Name Freq PRN Reason Stop Dose Admin Sodium Chloride 1,000 mls @ 1,000 mls/hr 07/09/25 10:00 07/09/25 11:30 0.9 % Sodium Chloride 1000 Ml IV 07/09/25 10:59 Infused .Q1H DELICIA Infusion Vancomycin/PEG/NADA/Lysine/Water 1.25 gm in 250 mls @ 200 mls/hr 07/09/25 10:15 07/09/25 13:19 Vancomycin 1.25 Gm/250 Ml IVPB 07/09/25 11:29 Infused ONCE ONE Infusion Potassium Chloride 10 meq in 100 mls @ 100 mls/hr 07/09/25 10:33 07/09/25 15:35 Potassium Chloride IVPB 07/09/25 11:32 Infused ONCE ONE Infusion Doxycycline Hyclate 100 mg/ 100 mls @ 100 mls/hr 07/09/25 11:48 07/09/25 14:17 Sodium Chloride IVPB 07/09/25 11:49 Infused ONCE ONE Infusion Lactated Ringer's 1,000 mls @ 1,000 mls/hr 07/09/25 11:59 07/09/25 14:17 Lactated Ringers 1000 Ml IV 07/09/25 12:58 Infused .Q1H ONE Infusion Lidocaine/Epinephrine 20 ml 07/09/25 12:38 07/09/25 14:00 Lidocaine 1%-Epi 1:100,000 Mdv INFILTRATI 07/09/25 12:39 20 ml ONCE ONE Administration Medical Decision Making MDM Narrative Medical decision making narrative: 1. cardiac. EKG does show atrial flutter. Patient is having paroxysmal episodes of a flutter with RVR while in the ER. She did have atrial flutter with rapid ventricular response. This is not a previously known diagnosis according the patient's family. She is not on any anticoagulation currently ( although apparently had been on Eliquis for several weeks after her knee replacement). She presented with atrial flutter with rapid ventricular response and variable rates. Initially with felt that the tachycardia was probably compensatory from fever, hypoxia he a, sepsis. We did not want to go ahead with initial rate control AV blockers. She was not truly a unstable tachy dysrhythmia requiring immediate cardioversion. After IV saline heart rate was coming down and ranging more in the 1 teens to 130s. Also she was intermittently converting in and out of sinus. After a 2 L of crystalloid with LR heart rate was again coming down with more for sustained episodes of sinus and heart rate more typically in the 1 teens to 130s when she was in AFib/flutter. Subsequently she seemed to convert and maintain sinus rhythm for several hours here in the ER. Troponin is abnormal at 55.9. 2 hour delta is Flat. No signs of rising troponin is suggest ACS.. And terminal proBNP is elevated at 35 90. However she does not have signs of pulmonary edema on her chest CT. Suspect the abnormal BNP likely reflects strain from her uncontrolled tachycardia. 2. Pulmonary. Consider possible hypercarbia as a cause for confusion. However venous blood gas shows normal pCO2. She is hypoxic with sats down to the low to mid 80s on room air. Sats came up to the 90s on 4 L nasal cannula. No wheezing or bronchospasm. PCO2 normal. No definite improvement with empiric DuoNeb. CT scan is negative for PE. CT shows evidence for a right upper lobe pneumonia. COVID/ influenza/RSV negative. patient received Zosyn and vancomycin and presentation because of sepsis with unclear etiology. With finding of pneumonia will broaden coverage with doxycycline to cover for community-acquired pneumonia. 3. Renal/ electrolytes. Kidney function Reassuring with a BUN of 38 and creatinine 0.7. consider possible rhabdo with a 12 hour. On the floor yesterday. CK is 1349. sodium is normal at 142. Potassium mildly low at 3.3, supplemented. CK is mildly elevated at 13 49. IV fluids administered. Aiken catheter placed for urine output monitoring. 4. Neuro. Patient does have nonfocal confusion superimposed on her chronic left sided weakness. suspect that her confusion is likely due to delirium from sepsis. during her ER stay she had dramatic improvement in her mental status. GCS improved from 14-15 and her cognition became much more alert and conversant. Still some slurred speech which I gather is chronic from her previous stroke, but overall doing much better. She is clearly showing signs of improving cerebral perfusion. Blood sugar is 166. No evidence for DKA or HHS. Sodium normal. Head CT scan does suggest a possible tiny parafalcine subdural hematoma ( versus calcification of the falx per radiologist). Recommendation is for 6 our follow-up scan. We did arrange consultation with the neurosurgeon from the clinic. He was able to review imaging infused that this abnormality is trivial. He thinks it is probably not a true finding of a subdural but even if it is would be nonsurgical. He does not feel the patient needs transfer to [place] for this injury. Although there is a lot of reassurance based on her discussion from the neurosurgeon we decided to go ahead with a [address] to make sure there was no sign of any expansion of this potential subdural hematoma. Repeat head CT shows stability and no clear signs of worsening bleed. 5. ID. Clinically I suspect septic. Blood cultures drawn andStarted on antibiotics ( Zosyn and vanc ) at presentation. Follow-up labs do show WBC of 22. VL is 2.2. With her sirs criteria she does meet criteria for sepsis. With her confusion AFib flutter, this does qualify for severe sepsis since it does affect her and organs but is not septic shock because her blood pressure stable and venous lactic acid is normal. After 2 L of IV fluid heart rate is improved. Multiple ( 10-12)bedside rechecks by physician over her ER stay to watch for signs of improving mental status and improving perfusion. Sources for sepsis include right upper lobe pneumonia. Upon discovering pneumonia we did broaden antibiotic coverage with doxy. She also has signs of redness and warmth around her right lower extremity and run her right knee. We consulted with [facility] because she has the recent postop patient. Per Dr. LAZO he feels that that if we suspect that there is a septic arthritis it would be appropriate to do the arthrocentesis here that we do not have to transfer to [place] just for any evaluation or for them to do the tap. I had a detailed discussion about the risks and benefits of a attempted arthrocentesis in this scenario with the patient and her family in the gave verbal consent. They understand that the concern is there may be a septic joint here and it will be important to establish that diagnosis because it affects her long-term course and need for antibiotics. However the risk of her thoracentesis would be that potentially we could carry an infection onto the knee joint, if it has not already infected. They understand the risk for iatrogenic infection is low, but certainly not 0. I did attempt to do a right knee arthrocentesis after detailed discussion of the risks of iatrogenic knee joint infection. We were able to get an approach from the superior lateral aspect of the knee where there isn't any overlying redness. After attempting this we were not able to get any fluid out of the joint. Therefore I suspect the knee swelling is probably due to either a prepatellar infection or a overlying cellulitis. Consulted with our orthopedic team here in [place]. DEVONTE Montanez came to the ER to evaluate. She does agree that the left knee is swollen there seems to be an effusion there. She is going to try to a repeat attempt to aspirate the knee joint. Urinalysis shows 5-10 white cells per high-power field. UTI would be covered by antibiotics already given. Discussed with our hospitalist, Paris Truong. She agrees to accept this patient. Lab Data Labs: Lab Results 07/09/25 07/09/25 07/09/25 Range/Units 09:35 09:55 12:04 WBC 22.46 H (4.50-11.00) K/uL RBC 4.12 (4.00-5.20) m/uL Hgb 12.8 (12.0-16.0) gm/dL Hct 40.1 (33.0-51.0) % MCV 97 (80-100) fL MCH 31 (26-34) pg MCHC 32 (32-36) gm/dL RDW Coeff of Lupe 14.9 (11.5-15.5) % Plt Count 355 (140-440) K/uL Neut % (Auto) 91.7 H (42.0-72.0) % Lymph % (Auto) 2.7 L (20-44) % Brule % (Auto) 4.9 (0.0-11.0) % Eos % (Auto) 0.0 (0.0-7.0) % Baso % (Auto) 0.1 (0.0-3.0) % Neut # (Auto) 20.60 H (1.7-7.0) K/uL Lymph # (Auto) 0.60 L (0.90-2.90) K/uL Brule # (Auto) 1.10 H (0.00-0.90) K/UL Eos # (Auto) 0.00 (0.00-0.50) K/uL Baso # (Auto) 0.00 (0.00-0.30) K/uL Abs Immat Gran (auto) 0.10 (0.00-0.30) K/uL Imm/Tot Granulo (auto) 0.6 % INR 1.07 (0.91-1.10) VBG pH 7.396 (7.32-7.43) VBG pCO2 42 (40-50) mmHG VBG pO2 31.0 (25-47) mmHG VBG HCO3 26 (21-28) mmol/L Sodium 142 (135-149) mmol/L Potassium 3.3 L (3.6-5.1) mmol/L Chloride 103 (96-114) mmol/L Carbon Dioxide 25 (20-32) mmol/L Anion Gap 14 (7-15) mEq/L BUN 30 (7-30) mg/dL Creatinine 0.7 (0.5-1.5) mg/dL Estimated Creat Clear 31.69 Estimated GFR 87 ml/min Glucose 166 H (60-115) mg/dL Lactate 2.2 H (0.5-1.9) mmol/L Calcium 9.8 (8.4-10.6) mg/dL Magnesium 1.9 (1.5-2.6) mg/dL Total Bilirubin 0.5 (0.1-1.5) mg/dL AST 74 H (12-35) U/L ALT 35 (4-35) U/L Alkaline Phosphatase 109 (40-150) U/L Total Creatine Kinase 1349 H (41-117) U/L POC Troponin I High Sensi 55.9 H* 56.6 H* (2.9-13.0) pg/mL NT-Pro-B Natriuret Pep 3590 H (See Note) pg/mL Total Protein 7.5 (6.0-8.3) g/dL Albumin 4.0 (3.3-5.0) g/dL TSH 1.400 (0.270-4.200) uIU/mL Urine Color (Yellow) Urine Appearance (Clear) Urine pH (5.0-8.5) Ur Specific [place] (1.000-1.030) Urine Protein (Negative) Urine Glucose (UA) (Negative) Urine Ketones (Negative) Urine Blood (Negative) Urine Nitrite (Negative) Urine Bilirubin (Negative) Urine Urobilinogen (0.2-1.0) Ur Leukocyte Esterase (Negative) Urine RBC (0-2) Urine WBC (0-5) Ur Squamous Epith Cells (None-Few) Urine Bacteria (None) SARS-CoV-2 (PCR) (Negative) Influenza Type A (PCR) (Negative) Influenza Type B (PCR) (Negative) RSV (PCR) (Negative) 07/09/25 Range/Units Unknown WBC (4.50-11.00) K/uL RBC (4.00-5.20) m/uL Hgb (12.0-16.0) gm/dL Hct (33.0-51.0) % MCV (80-100) fL MCH (26-34) pg MCHC (32-36) gm/dL RDW Coeff of Lupe (11.5-15.5) % Plt Count (140-440) K/uL Neut % (Auto) (42.0-72.0) % Lymph % (Auto) (20-44) % Brule % (Auto) (0.0-11.0) % Eos % (Auto) (0.0-7.0) % Baso % (Auto) (0.0-3.0) % Neut # (Auto) (1.7-7.0) K/uL Lymph # (Auto) (0.90-2.90) K/uL Brule # (Auto) (0.00-0.90) K/UL Eos # (Auto) (0.00-0.50) K/uL Baso # (Auto) (0.00-0.30) K/uL Abs Immat Gran (auto) (0.00-0.30) K/uL Imm/Tot Granulo (auto) % INR (0.91-1.10) VBG pH (7.32-7.43) VBG pCO2 (40-50) mmHG VBG pO2 (25-47) mmHG VBG HCO3 (21-28) mmol/L Sodium (135-149) mmol/L Potassium (3.6-5.1) mmol/L Chloride (96-114) mmol/L Carbon Dioxide (20-32) mmol/L Anion Gap (7-15) mEq/L BUN (7-30) mg/dL Creatinine (0.5-1.5) mg/dL Estimated Creat Clear Estimated GFR ml/min Glucose (60-115) mg/dL Lactate (0.5-1.9) mmol/L Calcium (8.4-10.6) mg/dL Magnesium (1.5-2.6) mg/dL Total Bilirubin (0.1-1.5) mg/dL AST (12-35) U/L ALT (4-35) U/L Alkaline Phosphatase (40-150) U/L Total Creatine Kinase (41-117) U/L POC Troponin I High Sensi (2.9-13.0) pg/mL NT-Pro-B Natriuret Pep (See Note) pg/mL Total Protein (6.0-8.3) g/dL Albumin (3.3-5.0) g/dL TSH (0.270-4.200) uIU/mL Urine Color Yellow (Yellow) Urine Appearance Clear (Clear) Urine pH 5.5 (5.0-8.5) Ur Specific [place] >= 1.030 (1.000-1.030) Urine Protein 2+ A (Negative) Urine Glucose (UA) Negative (Negative) Urine Ketones 2+ A (Negative) Urine Blood Trace-intact A (Negative) Urine Nitrite Negative (Negative) Urine Bilirubin Negative (Negative) Urine Urobilinogen 0.2 (0.2-1.0) Ur Leukocyte Esterase Negative (Negative) Urine RBC 0-2 (0-2) Urine WBC 5-10 A (0-5) Ur Squamous Epith Cells Few (None-Few) Urine Bacteria Many A (None) SARS-CoV-2 (PCR) Negative SARS-CoV-2 (Negative) Influenza Type A (PCR) Negative PCR FLU A (Negative) Influenza Type B (PCR) Negative PCR FLU B (Negative) RSV (PCR) Negative PCR RSV (Negative) Imaging Data CT scan - chest: Attestation: I have reviewed the pertinent imaging results. Radiologist's impression: IMPRESSION: 1. No evidence of pulmonary embolism. Limited evaluation of the subsegmental pulmonary arteries. 2. Anterior segment right upper lobe consolidation, wider than tall on the coronal and sagittal reformatted series, most likely infectious or inflammatory in nature. Correlate with the patient`s clinical history. Follow-up is suggested in 6-8 weeks (chest radiography or chest CT) to document resolution. 3. Please refer to the separate abdominopelvic CT report from the same day. CT scan - head: Attestation: I have reviewed the pertinent imaging results. My impression: Phone call from Radiology, Dr. Chip finley at 11:28 a.m.. He indicates that there is a very faint linear hyperdensity along the falx in the anterior interhemispheric space. This could be a very small interhemispheric subdural. Also could be a calcification of the falx but based on position, he would favor more likely be a tiny subdural. Recommends follow-up scan in 6 hours. Radiologist's impression: IMPRESSION: 1. Faint linear hyperdensity is noted in the anterior interhemispheric space. This may represent a very small interhemispheric subdural hematoma. Recommend 6 hour follow-up CT to reassess this area. 2. Postoperative changes involving the calvarium. No acute posttraumatic findings regarding the cranial vault. 3. 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 Associated ex vacuo dilation of the right lateral ventricle. Please note that all CT scans at this facility use dose modulation, iterative reconstruction, and/or weight-based dosing when appropriate to reduce radiation dose to as low as reasonably achievable. Dictated by Scout Collins MD @ 07/09/2025 11:27:31 AM ----- ADDENDUM ----- I discussed this case with Dr. Maurisio Ren at 11:25 a.m. on July 09, 2025. REPEAT HEAD CT IMPRESSION: 1. Limited evaluation of this examination secondary to extensive postsurgical changes as well as patient motion. Within these limitations, no focus of enlarging hyperdensity in the region of the falx to suggest an acute or enlarging subdural hematoma. If further evaluation is required, MRI is more sensitive than CT for detection of small volume hemorrhage. 2. Postsurgical changes and other findings as described in the body of the report are unchanged. Please note that all CT scans at this facility use dose modulation, iterative reconstruction, and/or weight-based dosing when appropriate to reduce radiation dose to as low as reasonably achievable. Dictated by Gordo Dominguez MD @ 07/09/2025 5:23:[address] C spine: Attestation: I have reviewed the pertinent imaging results. Radiologist's impression: IMPRESSION: Straightening. Degenerative changes. No visible acute fracture, dislocation or destructive process. CT scan - abdomen: Attestation: I have reviewed the pertinent imaging results. Radiologist's impression: IMPRESSION: 1. No acute traumatic injury is identified. Chronic healed fracture deformities of the left superior pubic ramus and left issue pubic ramus are noted incidentally. If there is ongoing clinical concern for an undiagnosed injury after secondary clinical survey then this examination can be reviewed if additional clinical history is forthcoming. 2. Additional findings as above. 3. Please refer to the separate chest CT report from the same day. XR knee: Attestation: I have reviewed the pertinent imaging results. Radiologist's impression: Impression: Questionable foci of intra-articular emphysema within the suprapatellar fossa only seen on the lateral view, not present on prior examination. Given history of skin redness cannot rule out infectious etiologies including septic arthritis. Correlate with history. ECG Data Attestation: I personally reviewed and interpreted this ECG as follows: Interpretation: Atrial flutter with variable AV block rate 160 KS interval not calculable normal QRS axis. No clear ST segment elevation or depression. There are nonspecific changes in the T-waves but I think that is because of superimposed flutter waves. Notably in leads 2, 3, AVF, V2 QT 286, QTC 466 Critical Care Time Critical Care Time Critical Care Time: Yes Attestation: The patient required my highest level preparedness to intervene emergently and I personally spent this critical care time directly and personally managing the patient. This critical care time included: Obtaining a history; Examining the patient; Pulse oximetry; Ordering and reviewing of studies; Arranging urgent treatment with development of a management plan; Evaluation of patients response to treatment; Frequent reassessment discussions with other providers. This critical care time was performed to assess and manage the high probability of imminent life-threatening deterioration that could result in multiorgan failure. It was exclusive of separate billable procedures and treating other patients and teaching time. Total Critical Care Time in Minutes: 60 Discharge Plan Discharge Clinical Impression: Pneumonia, Hypoxia, Atrial flutter, Subdural hematoma, Cellulitis of knee, left, Sepsis Prescriptions: No Action omega-3 fatty acids 1,000 mg capsule 1,000 mg PO DAILY multivitamin Tablet 1 tab PO DAILY calcium carb-D3-mag [id number] [phone] [id number]-mg tablet 1 tab PO DAILY Rx Instructions: administer with a meal vitamin B complex Tablet 1 tab PO DAILY baclofen 10 mg tablet 10 mg PO TID PRN (Reason: spasm) Qty: 90 3RF oxycodone 5 mg tablet PO valacyclovir [Valtrex] 500 mg tablet 500 mg PO DAILY spironolactone 25 mg tablet 25 mg PO DAILY levothyroxine [Synthroid] 75 mcg tablet 75 mcg PO DAILY conjugated estrogens [Premarin] 0.625 mg tablet 0.625 mg PO DAILY olopatadine [Pataday Once Daily Relief] 0.2 % drops 1 drp ophthalmic (eye) DAILY tolterodine [Detrol] 2 mg tablet 2 mg PO BID Qty: 60 2RF clonazepam 1 mg tablet 1 mg PO TID Qty: 90 2RF Follow Up/Referrals: Modesto Elliott MD [Primary Care Provider, [facility]] Procedures ABG Interpretation ABG Results: 07/09/25 09:35 VBG pH 7.396 VBG pCO2 42 VBG pO2 31.0 VBG HCO3 26
--- NOTE | 2025-07-09 09:53 | CRLHL7_ITS ---
For Patients: As a result of the Century Cures Act, medical imaging exams and procedure reports are released immediately into your electronic medical record. You may view this report before your referring provider. If you have questions, please contact your health care provider. INDICATION: Injury COMPARISON: None TECHNIQUE: CT examination of the head was performed as axial sections without intravenous contrast. Images were obtained from the vertex of the skull through the skull base. Please note that all CT scans at this facility use dose modulation, iterative reconstruction, and/or weight-based dosing when appropriate to reduce radiation dose to as low as reasonably achievable. FINDINGS: There is atrophy and white matter disease. There is a large area of encephalomalacia involving the right frontal lobe. There is postsurgical change in this area as well as aneurysm clips There is ex vacuo dilation of the right lateral ventricle associated with the right frontal encephalomalacia. A faint linear hyperdensity is noted in the anterior inferior interhemispheric space which may represent a very small interhemispheric subdural fluid hematoma. Recommend a 6 hour follow-up CT to reassess this area. No other potential areas of acute hemorrhage identified. Postoperative changes of the calvarium IMPRESSION: 1. Faint linear hyperdensity is noted in the anterior interhemispheric space. This may represent a very small interhemispheric subdural hematoma. Recommend 6 hour follow-up CT to reassess this area. 2. Postoperative changes involving the calvarium. No acute posttraumatic findings regarding the cranial vault. 3. 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 Associated ex vacuo dilation of the right lateral ventricle. Please note that all CT scans at this facility use dose modulation, iterative reconstruction, and/or weight-based dosing when appropriate to reduce radiation dose to as low as reasonably achievable. Dictated by Scout Collins MD @ 07/09/2025 11:27:31 AM (Electronically Signed)
--- NOTE | 2025-07-09 09:53 | CRLHL7_ITS ---
For Patients: As a result of the Century Cures Act, medical imaging exams and procedure reports are released immediately into your electronic medical record. You may view this report before your referring provider. If you have questions, please contact your health care provider. INDICATION: Neck pain COMPARISON: There are no prior studies for comparison TECHNIQUE: CT examination of the cervical spine is performed without contrast using spiral technique. Thin axial, sagittal and coronal reconstructions were made. Please note that all CT scans at this facility use dose modulation, iterative reconstruction, and/or weight-based dosing when appropriate to reduce radiation dose to as low as reasonably achievable. FINDINGS: : There is straightening which is usually due to muscle spasm or positioning. There is no lytic or blastic lesion and there is no finding of acute fracture, dislocation or destructive process. Bone mineral density normal for patient IMPRESSION: Straightening. Degenerative changes. No visible acute fracture, dislocation or destructive process. Please note that all CT scans at this facility use dose modulation, iterative reconstruction, and/or weight-based dosing when appropriate to reduce radiation dose to as low as reasonably achievable. Dictated by Scout Collins MD @ 07/09/2025 11:31:54 AM (Electronically Signed)
--- NOTE | 2025-07-09 09:53 | CRLHL7_ITS ---
For Patients: As a result of the Cures Act, medical imaging exams and procedure reports are released immediately into your electronic medical record. You may view this report before your referring provider. If you have questions, please contact your health care provider. Indication: Fall, weakness, knee pain and redness. Technique: Left knee 2 views. Comparison: Left knee radiographs 06/14/2025. Findings: Bones/joint spaces: Moderate joint effusion similar to prior exam. However, on the lateral view there questionable foci of intra-articular emphysema not seen previously. Intact total knee arthroplasty without evidence of loosening or failure. Soft tissues: Moderate soft tissue swelling throughout the lower extremity similar to the prior exam. Impression: Questionable foci of intra-articular emphysema within the suprapatellar fossa only seen on the lateral view, not present on prior examination. Given history of skin redness cannot rule out infectious etiologies including septic arthritis. Correlate with history. Dictated by Maurisio Teran MD @ 07/09/2025 11:33:57 AM (Electronically Signed)
--- NOTE | 2025-07-09 09:54 | CRLHL7_ITS ---
For Patients: As a result of the 21st Century Cures Act, medical imaging exams and procedure reports are released immediately into your electronic medical record. You may view this report before your referring provider. If you have questions, please contact your health care provider. INDICATION: Fall, weakness, abd pain, left hip pain. (Sic) No other history given. COMPARISON: None available. TECHNIQUE: CT of the abdomen and pelvis with 95 cc of Isovue 370 intravenous contrast. Please note that all CT scans at this facility use dose modulation, iterative reconstruction, and/or weight-based dosing when appropriate to reduce radiation dose to as low as reasonably achievable. FINDINGS: ABDOMEN Liver: Normal contour. Left hepatic lobe focal fatty infiltration adjacent to the intersegmental fissure. Incompletely characterized 9 mm hypoenhancing finding in segment 8 (series 5; image 18), likely benign (differential diagnostic considerations include a cyst or hemangioma), for which no further workup or ongoing imaging surveillance as indicated in the absence of an established history of malignancy and without significant underlying liver disease according to ACR white paper guidelines. No intrahepatic biliary ductal dilatation. Patent portal veins. Patent hepatic veins. Gallbladder: Normal size. Cholelithiasis. No pericholecystic inflammatory changes. Normal common duct caliber. Pancreas: Normal contour and attenuation. No peripancreatic inflammatory changes. No significant focal lesion. Normal main duct caliber. Spleen: Not enlarged. No significant focal lesion. Patent splenic artery and vein. Adrenal Glands: Symmetrical adrenal glands. No significant focal lesion. Kidneys: Normal bilateral renal attenuation. No significant focal lesion. No nephrolith. No dilatation of the intrarenal collecting systems. No ureteral stone. Nondilated ureters. Patent renal arteries and veins. Gastrointestinal tract: Normal caliber, attenuation and wall thickness of the gastrointestinal tract. No inflammatory changes. Vascular: Chronic aortoiliac atherosclerotic mural calcification. Abdominal aorta and its major proximal branches including the celiac, superior mesenteric, inferior mesenteric, renal, and bilateral common iliac arteries are patent. Patent superior mesenteric vein. Peritoneal Cavity/Retroperitoneum: No ascites. No adenopathy. PELVIS Catheterized and decompressed bladder. Hysterectomy. No significant ascites. No adenopathy. SKELETON AND BODY WALL No acute traumatic injury is identified. Chronic healed fracture deformities of the left superior pubic ramus and left issue pubic ramus are noted incidentally. Multilevel lumbar spondylosis including advanced disc degeneration at L2-L3, L4-L5 and L5-S1. Grade 1 degenerative anterior spondylolisthesis of L4 on L5. LOWER THORAX Please refer to the separate chest CT report from the same day. NB: Detection of acute traumatic injury on imaging is improved with a specific clinical history as to the anatomical region or regions of concern. If there is ongoing clinical concern for an undiagnosed injury after secondary clinical survey then this examination can be reviewed if additional clinical history is forthcoming. IMPRESSION: 1. No acute traumatic injury is identified. Chronic healed fracture deformities of the left superior pubic ramus and left issue pubic ramus are noted incidentally. If there is ongoing clinical concern for an undiagnosed injury after secondary clinical survey then this examination can be reviewed if additional clinical history is forthcoming. 2. Additional findings as above. 3. Please refer to the separate chest CT report from the same day. Please note that all CT scans at this facility use dose modulation, iterative reconstruction, and/or weight-based dosing when appropriate to reduce radiation dose to as low as reasonably achievable. Dictated by Sundeep Mathur MD @ 07/09/2025 11:42:28 AM (Electronically Signed)
--- NOTE | 2025-07-09 09:54 | CRLHL7_ITS ---
For Patients: As a result of the 21st Century Cures Act, medical imaging exams and procedure reports are released immediately into your electronic medical record. You may view this report before your referring provider. If you have questions, please contact your health care provider. INDICATION: FALL. HX OF AVM. WEAKNESS, HYPOXIA, TACHYCARDIA. (Sic) COMPARISON: No prior chest CT. TECHNIQUE: CT pulmonary angiography with 95 cc of Isovue 370 intravenous contrast. Reconstructed multiplanar MIP series were done. Please note that all CT scans at this facility use dose modulation, iterative reconstruction, and/or weight-based dosing when appropriate to reduce radiation dose to as low as reasonably achievable. FINDINGS: THORAX Pulmonary Arterial Vasculature: Opacification of the pulmonary arterial tree is adequate for assessment of pulmonary embolism. Motion artifact limits interpretation. No pulmonary embolism. Limited evaluation of the bilateral subsegmental pulmonary arteries. Visualized Lower Neck: No lower cervical adenopathy. Lungs: Interpretation is limited by motion artifact and a poor inspiratory effort. Anterior segment right upper lobe consolidation, wider than tall on the coronal and sagittal reformatted series, most likely infectious or inflammatory in nature. Correlate with the patient`s clinical history. Follow-up is suggested in 6-8 weeks to document resolution. Note is otherwise made of bilateral lower lobe posterior/dependent hypoventilatory changes. Pleura: No pleural effusion. No pneumothorax. Mediastinum: Thoracic aorta and pulmonary trunk are normal in caliber. Heart and pericardium are without significant findings. Trachea and esophagus are normal in appearance. No mediastinal lymphadenopathy. ABDOMEN Visualized Upper Abdomen: Please refer to the separate abdominopelvic CT report from the same day. SKELETON AND BODY WALL No acute or significant incidental findings. IMPRESSION: 1. No evidence of pulmonary embolism. Limited evaluation of the subsegmental pulmonary arteries. 2. Anterior segment right upper lobe consolidation, wider than tall on the coronal and sagittal reformatted series, most likely infectious or inflammatory in nature. Correlate with the patient`s clinical history. Follow-up is suggested in 6-8 weeks (chest radiography or chest CT) to document resolution. 3. Please refer to the separate abdominopelvic CT report from the same day. Please note that all CT scans at this facility use dose modulation, iterative reconstruction, and/or weight-based dosing when appropriate to reduce radiation dose to as low as reasonably achievable. Dictated by Sundeep Mathur MD @ 07/09/2025 11:35:19 AM (Electronically Signed)
[2025-07-09 10:06] LABS: HCO3 VBG 26 mmol/L (21-28); Lactate* 2.2 mmol/L (0.5-1.9); PCO2 VBG 42 mmHG (40-50); PO2 VBG 31.0 mmHG (25-47); pH VBG 7.396 (7.32-7.43)
[2025-07-09 10:22] LABS: Albumin* 4.0 g/dL (3.3-5.0); Chloride* 103 mmol/L (96-114); Potassium* 3.3 mmol/L (3.6-5.1); Sodium* 142 mmol/L (135-149)
[2025-07-09 10:25] LABS: Alanine Aminotransferase* 35 U/L (4-35); Alkaline Phosphatase* 109 U/L (40-150); Anion Gap 14 mEq/L (7-15); Aspartate Amino Transferase* 74 U/L (12-35); Bilirubin Total* 0.5 mg/dL (0.1-1.5); Blood Urea Nitrogen* 30 mg/dL (7-30); Calcium* 9.8 mg/dL (8.4-10.6); Carbon Dioxide* 25 mmol/L (20-32); Creatinine* 0.7 mg/dL (0.5-1.5); Est. Creatinine Clearance* 31.69; Estimated Glomerular Filt Rate 87 ml/min; Glucose* 166 mg/dL (60-115); Total Protein* 7.5 g/dL (6.0-8.3)
[2025-07-09 10:27] LABS: Hematocrit* 40.1 % (33.0-51.0); Hemoglobin* 12.8 gm/dL (12.0-16.0); Immature Granulocytes Pct Auto 0.6 %; Lymphocytes Absolute Auto 0.60 K/uL (0.90-2.90); Mean Corpuscular HGB Conc 32 gm/dL (32-36); Mean Corpuscular Hemoglobin 31 pg (26-34); Mean Corpuscular Volume 97 fL (80-100); RDW Coefficient of Variation % 14.9 % (11.5-15.5); Red Blood Count* 4.12 m/uL (4.00-5.20); White Blood Count* 22.46 K/uL (4.50-11.00)
[2025-07-09 10:28] LABS: INR 1.07 (0.91-1.10); Prothrombin Time 14.7 Seconds
[2025-07-09 10:36] LABS: NT Pro B Type NatriureticPept* 3590 pg/mL (See Note)
[2025-07-09 10:38] LABS: Immature Granulocytes Abs Auto 0.10 K/uL (0.00-0.30); Slide Review Reflex Yes
[2025-07-09 10:44] LABS: PCR FLU A Negative PCR FLU A (Negative); PCR FLU B Negative PCR FLU B (Negative); PCR RSV Negative PCR RSV (Negative); SARS PCR* Negative SARS-CoV-2 (Negative)
[2025-07-09 10:49] LABS: Appearance Urine Clear (Clear)
[2025-07-09 10:57] LABS: Creatine Kinase* 1349 U/L (41-117)
[2025-07-09 11:11] LABS: TSH With Reflex to FT4* 1.400 uIU/mL (0.270-4.200)
[2025-07-09] MEDS: PIPERACILLIN/TAZOBACTAM 4.5 GM in 0.9 % SODIUM CHLORIDE Mini-bag 100 ML IVPB ×2 (11:18→19:16)
[2025-07-09] MEDS: VANCOMYCIN 1.25 GM/250 ML 1.25 GM/250 ML PIGGYBACK IVPB (12:03)
[2025-07-09] MEDS: LACTATED RINGERS 1000 ML 1,000 ML IV (12:34)
[2025-07-09] MEDS: IPRAT-ALBUT 0.5-2.5 MG/3 ML NEB 1 NEB IH (12:44)
[2025-07-09] MEDS: DOXYCYCLINE HYCLATE 100 MG in 0.9 % SODIUM CHLORIDE Mini-bag 100 ML IVPB (13:20)
[2025-07-09] MEDS: POTASSIUM CHLORIDE 10 MEQ/100 ML PIGGYBACK 100 MEQ IVPB (14:34)
--- NOTE | 2025-07-09 16:45 | CT_ITS ---
Patient: HEMAL JULIO Facility:?[facility] Patient ID:?[id number] Site Patient ID:?[id number]. Site :?[id number] Study:?CT-Head WITHOUT-07/09/2025 4:56:49 PM Ordering Physician:Lamin Forde Final Report: INDICATION: Concern for subdural hematoma on the CT of the head performed earlier on the same day TECHNIQUE: Head CT without contrast. COMPARISON: CT head 07/09/2025 performed earlier on the same day FINDINGS: Brain: There is limited evaluation secondary to extensive postsurgical changes, as well as mild patient motion and streak artifact. The previously identified focus of hyperdensity along the falx on the CT performed earlier on the same day (series 3, image 35 of that examination) is definitively not redemonstrated, although this may be secondary to patient motion. No enlarging focus of hyperdensity to suggest an enlarging subdural hematoma. There is an unchanged linear focus of hyperdensity is present on the bone window images, which is postsurgical in nature, for example on series 7, image 125. Multiple aneurysm clips are also present, for example on series 7, image 52. These are unchanged compared to the prior CT. Streak artifact limits evaluation of the cerebral cortex. Within these limitations, no definite evidence of an acute territorial infarction. Otherwise, the patient is status post right frontoparietal craniotomy. There is unchanged encephalomalacia and edema within the right frontal and parietal lobes, as well as within the right basal ganglia. There is unchanged dilation of the right lateral ventricle. Otherwise, there is no mass effect or midline shift. Ventricular size is stable when compared to the prior CT. Orbits: No acute abnormality. IMPRESSION: 1. Limited evaluation of this examination secondary to extensive postsurgical changes as well as patient motion. Within these limitations, no focus of enlarging hyperdensity in the region of the falx to suggest an acute or enlarging subdural hematoma. If further evaluation is required, MRI is more sensitive than CT for detection of small volume hemorrhage. 2. Postsurgical changes and other findings as described in the body of the report are unchanged. Please note that all CT scans at this facility use dose modulation, iterative reconstruction, and/or weight-based dosing when appropriate to reduce radiation dose to as low as reasonably achievable. Dictated by Gordo Dominguez MD @ 07/09/2025 5:23:52 PM Signed by:?Gordo Dominguez MD @07/09/2025 5:23:52 PM (Electronic Signature)
[2025-07-09 18:49] LABS: Mononuclear WBC Body Fluid* 24 %; Polynuclear WBC Body Fluid* 77 %; RBC, Body Fluid* 174000 Cells/uL
[2025-07-09 18:50] LABS: BF Total Volume* 10
[2025-07-09 18:51] LABS: BF Clarity* Cloudy
--- NOTE | 2025-07-09 18:55 | PM.ORCN ---
History of Present Illness HPI Time Seen by Provider: 18:56 Date Seen: 07/09/25 Consult date: 07/09/25 Requesting physician: Maurisio Ren Chief complaint: Fall Narrative: Cristina is a very pleasant 80-year-old young lady, who presented to the emergency room today after suffering falls over the weekend. She had her left knee replaced at [facility] 04/24/2025. She has had limited mobility in the left knee since her hinged knee replacement. 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 She has right upper lobe pneumonia, sepsis. She is on Zosyn, vancomycin, doxycycline. She has left knee pain. She was in the emergency room about a month ago with knee pain as well. Review of Systems Narrative: Patient denies nausea, vomiting, shortness of breath PFSH PFSH Medical History History of cerebral hemorrhage (1991) ?Z86.79 - Personal history of other diseases of the circulatory system (ICD-10) Overactive bladder ?N32.81 - Overactive bladder (ICD-10) 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.1 - Herpesviral vesicular dermatitis (ICD-10) Generalized anxiety disorder ?F41.1 - Generalized anxiety disorder (ICD-10) Osteopenia ?M85.80 - Other specified disorders of bone density and structure, unspecified site (ICD-10) Adenomatous colon polyp ?D12.6 - Benign neoplasm of colon, unspecified (ICD-10) 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 (ICD-10) Hypothyroidism ?E03.9 - Hypothyroidism, unspecified (ICD-10) Dystonia ?G24.9 - Dystonia, unspecified (ICD-10) Surgical History History of total hysterectomy with bilateral salpingo-oophorectomy (BSO) ?Z90.710 - Acquired absence of both cervix and uterus (ICD-10) ?Z90.722 - Acquired absence of ovaries, bilateral (ICD-10) ?Z90.79 - Acquired absence of other genital organ(s) (ICD-10) History of cataract surgery ?Z98.49 - Cataract extraction status, unspecified eye (ICD-10) History of appendectomy ?Z90.49 - Acquired absence of other specified parts of digestive tract (ICD-10) Family History Father Colon cancer Social History Narrative: , retired, nonsmoker What is your current living situation?: I presently have a place to live Problems where you live: no known problems In the past 12 months, utilities in danger of being shut off: no In past 12 months, lack of transportation kept you from medical appts, meetings, work, or getting things needed for daily living: no In the past 12 mos, have been you worried that your food would run out before you had money to buy more?: never true In the past 12 mos, the food you bought just didn't last and you didn't have money to buy more?: never true Smoking Status: Never smoker How often do you have a drink containing alcohol: never AUDIT-C Alcohol total score: 0 Non-prescribed substance use: denies use How often does anyone, including family, friends and others, physically hurt you: never How often does anyone, including family, friends and others, insult or talk down to you: never How often does anyone, including family, friends and others, threaten you with harm: never How often does anyone, including family, friends and others, scream or curse at you: never Meds Home Medications and Allergies Home Medications ?Medication ?Instructions ?Recorded ?Confirmed ?Type calcium 333 mg-vit D3 200 1 tab PO DAILY 06/17/23 07/09/25 History unit-magnesium 133 mg-zinc 5 mg tablet multivitamin 1 tab PO DAILY 06/17/23 07/09/25 History omega-3 fatty acids 1,000 mg 1,000 mg PO DAILY 06/17/23 07/09/25 History capsule vitamin B complex 1 tab PO DAILY 06/17/23 07/09/25 History baclofen 10 mg tablet 10 mg PO TID PRN spasm #90 tabs 06/22/24 07/09/25 Rx clonazepam 1 mg tablet 1 mg PO TID #90 tabs 04/24/25 07/09/25 Rx tolterodine 2 mg tablet (Detrol) 2 mg PO BID #60 tabs 04/24/25 07/09/25 Rx conjugated estrogens 0.625 mg 0.625 mg PO DAILY 07/09/25 07/09/25 History tablet (Premarin) levothyroxine 75 mcg tablet 75 mcg PO DAILY 07/09/25 07/09/25 History (Synthroid) olopatadine 0.2 % eye drops 1 drp ophthalmic (eye) DAILY 07/09/25 07/09/25 History (Pataday Once Daily Relief) oxycodone 5 mg tablet mg PO 07/09/25 History spironolactone 25 mg tablet 25 mg PO DAILY 07/09/25 07/09/25 History valacyclovir 500 mg tablet 500 mg PO DAILY 07/09/25 07/09/25 History (Valtrex) Allergies Allergy/AdvReac Type Severity Reaction Status Date / Time carbamazepine (From Tegretol) Allergy Severe Rash Verified 07/09/25 11:20 phenobarbital Allergy Severe Rash Verified 07/09/25 11:20 phenytoin (From Dilantin) Allergy Severe Rash Verified 07/09/25 11:20 duloxetine (From Cymbalta) Allergy Intermediate swelling Verified 07/09/25 11:20 Ortho Exam Narrative Exam Narrative: Alert . Patient is in no acute distress. Converses without labored breathing. Hearing is grossly intact. She is examined supine on the ER bed. Examination of the left knee shows sutures are in place. Effusion is palpable. The skin is warm about the entire right and left leg. Left leg shows minimal erythema. Range of motion is approximately 0 to 20? with pain with passive range of motion. Minimal pain with palpation about the knee. Calf is soft and nontender. Sensation appears to be intact. Capillary refill less than 2 seconds. Const Vital Signs, click to edit/add: Vital Signs - 24 hr 07/09/25 09:00 07/09/25 09:30 07/09/25 09:30 Temperature 99.2 F Pulse Rate Pulse Rate [Pulse Oximeter] 109 H 140 H Respiratory Rate 18 16 Blood Pressure Blood Pressure [Left Upper Arm] 124/73 101/72 Pulse Oximetry 87 L 92 84 L Oxygen Delivery Method Room Air Nasal Cannula Room Air Oxygen Flow Rate 2 07/09/25 10:00 07/09/25 11:15 07/09/25 11:32 Temperature Pulse Rate 128 H Pulse Rate [Pulse Oximeter] 120 H 101 H Respiratory Rate 16 29 H Blood Pressure Blood Pressure [Left Upper Arm] 120/68 124/78 Pulse Oximetry 94 94 95 Oxygen Delivery Method Nasal Cannula Nasal Cannula Oxygen Flow Rate 07/09/25 11:45 07/09/25 11:51 07/09/25 12:00 Temperature Pulse Rate 131 H 118 H 107 H Pulse Rate [Pulse Oximeter] Respiratory Rate 27 H 30 H Blood Pressure 141/72 H Blood Pressure [Left Upper Arm] Pulse Oximetry 94 94 97 Oxygen Delivery Method Oxygen Flow Rate 07/09/25 12:15 07/09/25 12:30 07/09/25 12:32 Temperature Pulse Rate 128 H 151 H 153 H Pulse Rate [Pulse Oximeter] Respiratory Rate 18 Blood Pressure 115/72 Blood Pressure [Left Upper Arm] Pulse Oximetry 95 94 96 Oxygen Delivery Method Oxygen Flow Rate 07/09/25 12:45 07/09/25 13:00 07/09/25 13:02 Temperature Pulse Rate 121 H 119 H 120 H Pulse Rate [Pulse Oximeter] Respiratory Rate 28 H 18 Blood Pressure 132/74 Blood Pressure [Left Upper Arm] Pulse Oximetry 96 95 96 Oxygen Delivery Method Oxygen Flow Rate 07/09/25 13:15 07/09/25 13:30 07/09/25 13:32 Temperature Pulse Rate 137 H 115 H 156 H Pulse Rate [Pulse Oximeter] Respiratory Rate 27 H 22 27 H Blood Pressure 131/83 Blood Pressure [Left Upper Arm] Pulse Oximetry 96 94 96 Oxygen Delivery Method Oxygen Flow Rate 07/09/25 13:45 07/09/25 14:00 07/09/25 14:02 Temperature Pulse Rate 103 H 103 H 103 H Pulse Rate [Pulse Oximeter] Respiratory Rate 16 20 18 Blood Pressure 133/73 Blood Pressure [Left Upper Arm] Pulse Oximetry 96 97 96 Oxygen Delivery Method Oxygen Flow Rate 07/09/25 14:15 07/09/25 14:30 07/09/25 14:33 Temperature Pulse Rate 100 109 H 100 Pulse Rate [Pulse Oximeter] Respiratory Rate 19 26 H 25 H Blood Pressure 121/60 Blood Pressure [Left Upper Arm] Pulse Oximetry 94 94 94 Oxygen Delivery Method Oxygen Flow Rate 07/09/25 14:34 07/09/25 14:45 07/09/25 15:00 Temperature Pulse Rate 101 H 109 H 127 H Pulse Rate [Pulse Oximeter] Respiratory Rate 23 Blood Pressure Blood Pressure [Left Upper Arm] Pulse Oximetry 94 94 94 Oxygen Delivery Method Oxygen Flow Rate 07/09/25 15:02 07/09/25 15:15 07/09/25 15:30 Temperature Pulse Rate 120 H 98 98 Pulse Rate [Pulse Oximeter] Respiratory Rate 13 28 H 19 Blood Pressure 97/63 Blood Pressure [Left Upper Arm] Pulse Oximetry 93 95 95 Oxygen Delivery Method Oxygen Flow Rate 07/09/25 15:33 07/09/25 15:33 07/09/25 15:33 Temperature Pulse Rate 99 99 99 Pulse Rate [Pulse Oximeter] Respiratory Rate 25 H 25 H 25 H Blood Pressure 118/60 118/60 118/60 Blood Pressure [Left Upper Arm] Pulse Oximetry 95 95 95 Oxygen Delivery Method Oxygen Flow Rate 07/09/25 15:45 07/09/25 16:00 07/09/25 16:02 Temperature Pulse Rate 97 96 97 Pulse Rate [Pulse Oximeter] Respiratory Rate 27 H 28 H Blood Pressure 125/74 Blood Pressure [Left Upper Arm] Pulse Oximetry 97 95 95 Oxygen Delivery Method Oxygen Flow Rate 07/09/25 16:15 07/09/25 16:30 07/09/25 16:32 Temperature Pulse Rate 95 93 93 Pulse Rate [Pulse Oximeter] Respiratory Rate 28 H Blood Pressure 110/53 L Blood Pressure [Left Upper Arm] Pulse Oximetry 95 93 93 Oxygen Delivery Method Oxygen Flow Rate Results Labs Labs: Laboratory Results - last 48 hr 07/09/25 07/09/25 07/09/25 09:35 09:55 12:04 WBC 22.46 H RBC 4.12 Hgb 12.8 Hct 40.1 MCV 97 MCH 31 MCHC 32 RDW Coeff of Lupe 14.9 Plt Count 355 Neut % (Auto) 91.7 H Lymph % (Auto) 2.7 L Wells % (Auto) 4.9 Eos % (Auto) 0.0 Baso % (Auto) 0.1 Neut # (Auto) 20.60 H Lymph # (Auto) 0.60 L Wells # (Auto) 1.10 H Eos # (Auto) 0.00 Baso # (Auto) 0.00 Abs Immat Gran (auto) 0.10 Imm/Tot Granulo (auto) 0.6 INR 1.07 VBG pH 7.396 VBG pCO2 42 VBG pO2 31.0 VBG HCO3 26 Sodium 142 Potassium 3.3 L Chloride 103 Carbon Dioxide 25 Anion Gap 14 BUN 30 Creatinine 0.7 Estimated Creat Clear 31.69 Estimated GFR 87 Glucose 166 H Lactate 2.2 H Calcium 9.8 Magnesium 1.9 Total Bilirubin 0.5 AST 74 H ALT 35 Alkaline Phosphatase 109 Total Creatine Kinase 1349 H POC Troponin I High Sensi 55.9 H* 56.6 H* NT-Pro-B Natriuret Pep 3590 H Total Protein 7.5 Albumin 4.0 TSH 1.400 Urine Color Urine Appearance Urine pH Ur Specific [place] Urine Protein Urine Glucose (UA) Urine Ketones Urine Blood Urine Nitrite Urine Bilirubin Urine Urobilinogen Ur Leukocyte Esterase Urine RBC Urine WBC Ur Squamous Epith Cells Urine Bacteria Fluid Volume Fluid Color Fluid Appearance Fluid WBC Fluid RBC Fluid Polynuclear WBCs Fluid Mononuclear WBCs SARS-CoV-2 (PCR) Influenza Type A (PCR) Influenza Type B (PCR) RSV (PCR) 07/09/25 07/09/25 17:55 Unknown WBC RBC Hgb Hct MCV MCH MCHC RDW Coeff of Lupe Plt Count Neut % (Auto) Lymph % (Auto) Wells % (Auto) Eos % (Auto) Baso % (Auto) Neut # (Auto) Lymph # (Auto) Wells # (Auto) Eos # (Auto) Baso # (Auto) Abs Immat Gran (auto) Imm/Tot Granulo (auto) INR VBG pH VBG pCO2 VBG pO2 VBG HCO3 Sodium Potassium Chloride Carbon Dioxide Anion Gap BUN Creatinine Estimated Creat Clear Estimated GFR Glucose Lactate Calcium Magnesium Total Bilirubin AST ALT Alkaline Phosphatase Total Creatine Kinase POC Troponin I High Sensi NT-Pro-B Natriuret Pep Total Protein Albumin TSH Urine Color Yellow Urine Appearance Clear Urine pH 5.5 Ur Specific [place] >= 1.030 Urine Protein 2+ A Urine Glucose (UA) Negative Urine Ketones 2+ A Urine Blood Trace-intact A Urine Nitrite Negative Urine Bilirubin Negative Urine Urobilinogen 0.2 Ur Leukocyte Esterase Negative Urine RBC 0-2 Urine WBC 5-10 A Ur Squamous Epith Cells Few Urine Bacteria Many A Fluid Volume 10 Fluid Color Blood Tinged A Fluid Appearance Cloudy A Fluid WBC 138660 Fluid RBC 645161 Fluid Polynuclear WBCs 77 Fluid Mononuclear WBCs 24 SARS-CoV-2 (PCR) Negative SARS-CoV-2 Influenza Type A (PCR) Negative PCR FLU A Influenza Type B (PCR) Negative PCR FLU B RSV (PCR) Negative PCR RSV Diagnostic results Additional Comments: 07/09/2025 left knee two views Findings: Bones/joint spaces: Moderate joint effusion similar to prior exam. However, on the lateral view there questionable foci of intra-articular emphysema not seen previously. Intact total knee arthroplasty without evidence of loosening or failure. Soft tissues: Moderate soft tissue swelling throughout the lower extremity similar to the prior exam. Impression: Questionable foci of intra-articular emphysema within the suprapatellar fossa only seen on the lateral view, not present on prior examination. Given history of skin redness cannot rule out infectious etiologies including septic arthritis. Correlate with history. Assessment and Plan Assessment and plan (1) Infection of prosthetic left knee joint: Status: Acute (2) Sepsis: Status: Acute (3) Cellulitis of knee, left: Status: Acute Plan It is discussed with Cristina and her daughter and granddaughter that I feel there is fluid in the knee and I would like to attempt aspiration to see if there is infection in her newly placed left total knee, hinged. This was attempted previously this evening. No fluid was aspirated. They agree with a 2nd attempt at aspiration. Procedures listed below. Cloudy purulent fluid is aspirated. Dr. Cates was notified to ask if he would want to manage Cristina's left knee infection. With Cristina's comorbidities, recent hinged knee placement at [facility], best treatment would be at [facility]. He spoke with Dr. Garzon. Dr. Ren has already tried to contact [facility]. They stated they could not take her. Dr. Garzon will try again. If [facility] declines once again, then she will be transferred to the [facility], [place]. Procedure: A detailed conversation was had regarding the description, purpose and nature of left knee aspiration. Risks, benefits, possible complications, and non surgical alternatives were discussed with the patient during this conversation. The patient was given the opportunity to ask questions and received answers to their satisfaction. The patient indicated that they understood the purpose and nature of left knee aspiration and its risks, benefits, possible complications, and nonsurgical alternatives. The patient wants to undergo procedure given the information provided. Verbal, and written consent was obtained from the patient prior to the procedure. After the injection areas was sterilely prepped with ChloraPrep,3 mL of 1% lidocaine is injected under the skin and in subcutaneous tissue. 10 mL of cloudy blood-tinged fluid is aspirated. The patient tolerated the procedure well. Band-Aid was placed. Note, dictation performed with voice recognition, and as a result, wrong word or sound like substitutions may have occurred. There may be areas in the script that have gone undetected. Please consider this when interpreting information found in the chart.
[2025-07-10 00:55] LABS: Slide Review Acceptable Review (Acceptable)
== END 2025-07-09 20:15 | disposition short-term general hospital (02) ==
PROVIDERS: Emergency Medicine; Emergency Provider Family Medicine; PCP Family Medicine
DX: M25.561 Pain in right knee (principal); A41.89 Other specified sepsis; J18.9 Pneumonia, unspecified organism; I48.92 Unspecified atrial flutter; I62.00 Nontraumatic subdural hemorrhage, unspecified
CPT/HCPCS: 20610; 36415; 70450; 71275; 72125; 73560; 74177; 80053; 81001; 82550; 82803; 83605; 83735; 83880; 84443; 84484; 85025; 85610; 87040; 87070; 87086; 87186; 87205; 87631; 89051; 89060; 93005; 96365; 96375; 99285; 99291; J2543; J3375; J3480; J7030; J7120; Q9967

== ENCOUNTER 2025-07-09 20:02 | Outpatient (CLI) | payer MEDICARE, BC, SELFPAY | END 2025-07-09 20:03 | disposition home or self-care (01) | LOC: AMB 07-11 16:59 | PROVIDERS: PCP Family Medicine; Visit Provider Family Medicine | DX: A41.9 Sepsis, unspecified organism (principal); L03.116 Cellulitis of left lower limb; J18.9 Pneumonia, unspecified organism | CPT/HCPCS: A0425; A0428 ==